=== PATIENT | female | born 1950 | race Caucasian/White ===

== ENCOUNTER 2016-06-28 15:08 | Emergency (ER) | payer OTHER ==
[2016-06-28 15:20] VITALS: BMI 34.3
--- NOTE | 2016-06-28 15:27 | PDOC ---
History of Present Illness - General History Source: Patient Exam Limitations: No Limitations - History of Present Illness Initial Comments: 06/28/16 16:15 The patient is 66-year-old female, with a significant past medical history of arrhythmia, HTN, hyperthyroidism (on Synthroid), and arthritis, who presents to the ED with fever, cough, sore throat, body aches, headache, nausea, diarrhea, and abdominal pain that began a few days ago. The patient visited her PCP two days ago and was prescribed a nasal spray. Last dose of tylenol was at 1:30PM. Pt is also taking mucinex that has helped to alleviate her symptoms. The patient denies any chest pain or shortness of breath. The patient denies any recent sick contacts. PCP: Dr. Flowers <Genesis Carbajal - Last Filed: 06/28/16 16:15> <Yolanda Goddard - Last Filed: 06/28/16 18:56> - General Chief Complaint: Vomiting/Diarrhea Stated Complaint: DIZZINESS, FLU, HEADACHES, Time Seen by Provider: 06/28/16 15:27 Past History <Genesis Carbajal - Last Filed: 06/28/16 16:15> - Past Medical History Cardiac Disorders: Yes (arrhythmia) HTN: Yes Thyroid Disease: Yes Other medical history: arthritis - Psycho/Social/Smoking Cessation Hx Suicidal Ideation: No Smoking History: Former smoker Have you smoked in the past 12 months: No Information on smoking cessation initiated: No <Yolanda Goddard - Last Filed: 06/28/16 18:56> - Past Medical History Allergies/Adverse Reactions: Allergies Allergy/AdvReac Type Severity Reaction Status Date / Time No Known Allergies Allergy Verified 06/28/16 15:14 Review of Systems - Review of Systems Able to Perform ROS?: Yes Comments:: 06/28/16 16:16 GENERAL/CONSTITUTIONAL: No chills. No weakness. (+)fever, body aches HEAD, EYES, EARS, NOSE AND THROAT: No change in vision. No ear pain or discharge. (+)sore throat CARDIOVASCULAR: No chest pain or shortness of breath. RESPIRATORY: No wheezing, or hemoptysis. (+)cough GASTROINTESTINAL: No vomiting, or constipation. (+)nausea, diarrhea, abdominal pain GENITOURINARY: No dysuria, frequency, or change in urination. MUSCULOSKELETAL: No joint swelling or pain. No neck or back pain. SKIN: No rash NEUROLOGIC: No vertigo, loss of consciousness, or change in strength/sensation. (+)headache ENDOCRINE: No increased thirst. No abnormal weight change. HEMATOLOGIC/LYMPHATIC: No anemia, easy bleeding, or history of blood clots. ALLERGIC/IMMUNOLOGIC: No hives or skin allergy. <Genesis Carbajal - Last Filed: 06/28/16 16:15> *Physical Exam - Vital Signs Last Vital Signs Temp Pulse Resp BP Pulse Ox 98.5 F 86 19 153/102 97 06/28/16 15:14 06/28/16 15:14 06/28/16 15:14 06/28/16 15:14 06/28/16 15:14 - Physical Exam Comments: 06/28/16 16:19 GENERAL: Awake, alert, and fully oriented, in no acute distress. (+) Intermittent dry cough. HEAD: No signs of trauma EYES: PERRLA, EOMI, sclera anicteric, conjunctiva clear ENT: Auricles normal inspection, hearing grossly normal, nares patent, oropharynx clear without exudates. Moist mucosa NECK: Normal ROM, supple, no lymphadenopathy, JVD, or masses LUNGS: Breath sounds equal, clear to auscultation bilaterally. No wheezes, and no crackles HEART: Regular rate and rhythm, normal S1 and S2, no murmurs, rubs or gallops ABDOMEN: Soft, nontender, normoactive bowel sounds. No guarding, no rebound. No masses EXTREMITIES: Normal range of motion, no edema. No clubbing or cyanosis. No cords, erythema, or tenderness NEUROLOGICAL: Cranial nerves II through XII grossly intact. Normal speech, normal gait SKIN: Warm, Dry, normal turgor, no rashes or lesions noted <Genesis Carbajal - Last Filed: 06/28/16 16:15> - Vital Signs Last Vital Signs Temp Pulse Resp BP Pulse Ox 98.5 F 86 19 153/102 97 06/28/16 15:14 06/28/16 15:14 06/28/16 15:14 06/28/16 15:14 06/28/16 15:14 <Yolanda Goddard - Last Filed: 06/28/16 18:56> ED Treatment Course - LABORATORY CBC & Chemistry Diagram: 06/28/16 16:55 06/28/16 16:55 <Yolanda Goddard - Last Filed: 06/28/16 18:56> *DC/Admit/Observation/Transfer - Attestations Scribe Attestion: 06/28/16 16:20 Documentation prepared by Genesis Carbajal, acting as rn medical surgical for Yolanda Goddard MD. <Genesis Carbajal - Last Filed: 06/28/16 16:15> - Discharge Dispostion Admit: No <Yolanda Goddard - Last Filed: 06/28/16 18:56> Diagnosis at time of Disposition: Fever Qualifiers: Fever type: unspecified Qualified Code(s): R50.9 - Fever, unspecified - Discharge Dispostion Disposition: HOME Condition at time of disposition: Improved - Referrals Referrals: Jj Flowers MD [Primary Care Provider] -
[2016-06-28] MEDS ORDERED: KETOROLAC TROMETHAMINE 15 MG/ML VIAL IVPUSH ONE (16:07)
[2016-06-28] MEDS ORDERED: SODIUM CHLORIDE 1,000 ML IV STA (16:07)
[2016-06-28] MEDS ORDERED: KETOROLAC TROMETHAMINE 60 MG/2 ML VIAL ONE (16:35)
[2016-06-28 17:06] LABS: BASOPHIL 0.9 % (0-2.0); EOSINOPHIL 3.1 % (0-4.5); MCH 28.7 pg (25.7-33.7); MCHC 32.8 g/dl (32.0-36.0); MEAN CELL VOLUME 87.5 fl (80-96); MEAN PLT VOLUME 7.9 fl (7.5-11.1); NEUTROPHILS 61.3 % (42.8-82.8); PLATELET COUNT 244 K/MM3 (134-434); RDW 13.4 % (11.6-15.6); WHITE BLOOD COUNT 10.2 K/mm3 (4.0-10.0)
[2016-06-28 17:59] LABS: ALBUMIN 3.6 g/dl (3.4-5.0); BILIRUBIN,TOTAL 0.5 mg/dL (0.2-1.0); CALCIUM 8.3 mg/dL (8.5-10.1); CREATININE 1.1 mg/dL (0.55-1.02); TOT PROT 7.7 g/dl (6.4-8.2)
[2016-06-28 18:29] VITALS: BP 139/88; PULSE 71; TEMP 98.2
== END 2016-06-28 19:56 | disposition home or self-care (01) ==
LOC: JER 15:08
PROC: 3E0333Z Introduction of Anti-inflammatory into Peripheral Vein, Percutaneous Approach (ICD-10-PCS; principal; 2016-06-28)
DX: R50.9 Fever, unspecified (principal); I10 Essential (primary) hypertension; E03.9 Hypothyroidism, unspecified; Z86.79 Personal history of other diseases of the circulatory system
CPT/HCPCS: 36415; 71010-TC; 80053; 85025; 87804; 96374; 99282-25

== ENCOUNTER 2017-10-22 17:20 | Emergency (ER) | payer OTHER ==
--- NOTE | 2017-10-22 17:28 | PDOC ---
Rapid Medical Evaluation Time Seen by Provider: 10/22/17 17:26 Medical Evaluation: Allergies Allergy/AdvReac Type Severity Reaction Status Date / Time No Known Allergies Allergy Verified 06/28/16 15:14 10/22/17 17:26 I have performed a brief in-person evaluation of this patient. the patient presents with a chief complaint of swelling and redness to right 2nd toe since last Patient reports started with itching now with some pain. Pertinent physical exam findings: appears well erythenatous 2nd right toe, +swelling I have ordered the following: xray of right foot The patient will proceed to the
[2017-10-22 17:31] VITALS: BP 122/71; PULSE 77; TEMP 97.8; BMI 33.5
--- NOTE | 2017-10-22 18:50 | PDOC ---
History of Present Illness - General Chief Complaint: Edema Stated Complaint: PAIN Time Seen by Provider: 10/22/17 17:26 History Source: Patient Exam Limitations: No Limitations - History of Present Illness Initial Comments: 10/22/17 18:50 Patient is a 67-year-old female who presents emergency department today complaining of right second toe swelling. Patient states this started approximately 1 week ago. She states it feels like it itching. She states that the swelling has gotten worse over the last few days. Denies fevers, chills, recent trauma, weakness in the foot, numbness and tingling. Past History - Travel Traveled outside of the country in the last 30 days: No Close contact w/someone who was outside of country & ill: No - Past Medical History Allergies/Adverse Reactions: Allergies Allergy/AdvReac Type Severity Reaction Status Date / Time No Known Allergies Allergy Verified 10/22/17 17:28 Home Medications: Ambulatory Orders Clindamycin [Cleocin -] 300 mg PO TID #21 capsule 10/22/17 Cardiac Disorders: Yes (arrhythmia, CAD,[place],) COPD: No HTN: Yes Thyroid Disease: Yes - Suicide/Smoking/Psychosocial Hx Smoking History: Former smoker Have you smoked in the past 12 months: No Information on smoking cessation initiated: No Review of Systems - Review of Systems Able to Perform ROS?: Yes Comments:: 10/22/17 18:51 CONSTITUTIONAL: Absent: fever, chills, diaphoresis, generalized weakness, malaise, loss of appetite MUSCULOSKELETAL: Present: R second toe pain/swelling Absent: myalgia, arthralgia, SKIN: Present: redness to R second toe Absent: rash, itching, pallor HEMATOLOGIC/IMMUNOLOGIC: Absent: easy bleeding, easy bruising, lymphadenopathy, frequent infections ENDOCRINE: Absent: unexplained weight gain, unexplained weight loss, heat intolerance, cold intolerance NEUROLOGIC: Absent: headache, focal weakness or paresthesias, dizziness, unsteady gait, seizure, mental status changes, bladder or bowel incontinence PSYCHIATRIC: Absent: anxiety, depression, suicidal or homicidal ideation, hallucinations. Is the patient limited Korean proficient: No *Physical Exam - Vital Signs Last Vital Signs Temp Pulse Resp BP Pulse Ox 97.8 F 77 19 122/71 96 10/22/17 17:28 10/22/17 17:28 10/22/17 17:28 10/22/17 17:28 10/22/17 17:28 - Physical Exam Comments: 10/22/17 18:52 GENERAL: Well developed, well nourished. Awake and alert. No acute distress. MUSCULOSKELETAL Normal range of motion at all joints. No bony deformities or tenderness. No CVA tenderness. EXTREMITIES: No cyanosis. No clubbing. No edema. No calf tenderness. SKIN: R second toe swollen and erythematous to the ventral side of the toe without circumferential redness. Warm and dry. Normal capillary refill. No jaundice. NEUROLOGICAL: Alert, awake, appropriate. Cranial nerves 2-12 intact. No deficits to light touch and temperature in face, upper extremities and lower extremities. No motor deficits in the in face, upper extremities and lower extremities. Normoreflexic in the upper and lower extremities. Normal speech. Toes are down- going bilaterally. Gait is normal without ataxia. PSYCHIATRIC: Cooperative. Good eye contact. Appropriate mood and affect. Medical Decision Making - Medical Decision Making 10/22/17 18:53 Patient is a 67-year-old female who presents with 1 week of right second toe swelling and redness. On exam the toe is warm to the touch and grossly swollen. Minimal pain on palpation. Most likely cellulitis at this time. Unlikely gout this patient can bend the toe. We'll treat with antibiotics. Return precautions given. Patient was is all discharge instructions and all questions were answered. *DC/Admit/Observation/Transfer Diagnosis at time of Disposition: Cellulitis Qualifiers: Site of cellulitis: extremity Site of cellulitis of extremity: toe Laterality: right Qualified Code(s): L03.031 - Cellulitis of right toe - Discharge Dispostion Disposition: HOME Condition at time of disposition: Stable Decision to Admit order: No - Prescriptions Prescriptions: Clindamycin [Cleocin -] 300 mg PO TID #21 capsule - Referrals Referrals: Jj Flowers MD [Primary Care Provider] - - Patient Instructions Printed Discharge Instructions: DI for Cellulitis -- Adult Additional Instructions: You have cellulitis. This is a skin infection. Please take the clindamycin three times a day for one week. Take all the medication even if you feel better. Take with food You may use warm water soaks to the area. Please do this approximately 4-5 times a day. Please avoid shaving the skin around the area of redness. You may take Tylenol or Motrin as needed for pain. Please follow up with your primary care doctor in 1 week. Return to the emergency department if you have worsening redness, fevers, increasing pain, or have any changes in your symptoms. Tienes celulitis Esta es nilson infeccin de la piel. Por favor, tome la clindamicina liv veces al da doris nilson semana. Kahite todos los medicamentos incluso si se siente mejor. Dimitri con la comida Puede usar baos de agua tibia en el michael. Por favor haz esto aproximadamente 4- 5 veces al da. Nat afeitarte la piel alrededor del michael de enrojecimiento. Puede dimitri Tylenol o Motrin segn sea necesario para el dolor. Por favor christophe un seguimiento con bull mdico de atencin primaria en 1 semana. Regrese al departamento de emergencias si empeora el enrojecimiento, la fiebre, aumenta el dolor o tiene algn cambio en ayaz sntomas. - Post Discharge Activity
== END 2017-10-22 19:02 | disposition home or self-care (01) ==
LOC: JERFT 17:20
DX: L03.031 Cellulitis of right toe (principal); I25.10 Atherosclerotic heart disease of native coronary artery without angina pectoris; I10 Essential (primary) hypertension; I49.8 Other specified cardiac arrhythmias; E07.9 Disorder of thyroid, unspecified
CPT/HCPCS: 73660-TC-FY; 99281-25

== ENCOUNTER 2018-08-25 04:44 | Emergency (ER) | payer OTHER ==
--- NOTE | 2018-08-25 04:59 | PDOC ---
ED Treatment Course - LABORATORY CBC & Chemistry Diagram: 08/25/18 05:30 08/25/18 05:30 Medical Decision Making - Medical Decision Making 08/25/18 04:59 Patient seen by the advanced practice provider under my direct supervision. Ancillary testing reviewed as necessary. I agree with plan as outlined by the advanced practice provider. *DC/Admit/Observation/Transfer Diagnosis at time of Disposition: Nausea vomiting and diarrhea - Discharge Dispostion Condition at time of disposition: Fair - Referrals Referrals: Jj Flowers MD [Primary Care Provider] - - Patient Instructions - Post Discharge Activity
--- NOTE | 2018-08-25 05:09 | PDOC ---
History of Present Illness - General Chief Complaint: Vomiting/Diarrhea Stated Complaint: vomiting diarrhea Time Seen by Provider: 08/25/18 04:57 History Source: Patient - History of Present Illness Initial Comments: 08/25/18 05:24 68-year-old female with nausea vomiting and diarrhea for the last 3-4 days. Patient reports body aches and feeling weak. Denies fevers/chills, cough, chest pain, diaphoresis, dizziness. Patient is here with mother who was also with similar symptoms and had a syncopal episode. Past History - Past Medical History Allergies/Adverse Reactions: Allergies Allergy/AdvReac Type Severity Reaction Status Date / Time No Known Allergies Allergy Verified 08/25/18 05:26 Home Medications: Ambulatory Orders Ondansetron HCl [Zofran] 4 mg PO Q8H #8 tablet 08/25/18 Cardiac Disorders: Yes (arrhythmia, CAD,[place],) COPD: No HTN: Yes Thyroid Disease: Yes - Suicide/Smoking/Psychosocial Hx Smoking History: Former smoker Have you smoked in the past 12 months: No Review of Systems - Review of Systems Able to Perform ROS?: Yes Is the patient limited Niuean proficient: No Constitutional: Yes: Weakness Respiratory: No: Symptoms reported, See HPI, Cough, Orthopnea, Shortness of Breath, SOB with Exertion, SOB at Rest, Stridor, Wheezing, Productive cough, Hemoptysis, Other ABD/GI: Yes: Diarrhea, Nausea, Vomiting, Abdominal cramping : No: Symptoms Reported, See HPI, Burning, Dysuria, Discharge, Frequency, Flank Pain, Hematuria, Incontinence, Pain, Urgency, Testicular Mass, Testicular Swelling, Lesions, Testicular Pain, Other Musculoskeletal: No: Symptoms Reported, See HPI, Back Pain, Gout, Joint Pain, Joint Swelling, Muscle Pain, Muscle Weakness, Neck Pain, Joint Stiffness, Other Integumentary: No: Symptoms Reported, See HPI, Bruising, Change in Color, Change in Hair/Nails, Dryness, Erythema, Flushing, Lesions, Lumps, Pallor, Pruritus, Rash, Sweating, Other Neurological: No: Symptoms reported, See HPI, Headache, Numbness, Paresthesia, Pre-Existing Deficit, Seizure, Tingling, Tremors, Weakness, Unsteady Gait, Ataxia, Dizziness, Other *Physical Exam - Vital Signs 08/25/18 05:25 A: likely viral syndrome since multiple members of family with similar symptoms P: labs EKG IVF zofran Heart Score/ECG Review - ECG Intrepretation Rhythm: Regular Rhythm Comment:: 08/25/18 06:12 NSR: 69bpm ED Treatment Course - LABORATORY CBC & Chemistry Diagram: 08/25/18 05:30 08/25/18 05:30 Medical Decision Making - Medical Decision Making 08/25/18 06:45 tolerated PO. awaiting UA: no urinary symptoms. patient signed out to Rachel CARTY *DC/Admit/Observation/Transfer Diagnosis at time of Disposition: Nausea vomiting and diarrhea - Discharge Dispostion Disposition: HOME Condition at time of disposition: Improved - Prescriptions Prescriptions: Ondansetron HCl [Zofran] 4 mg PO Q8H #8 tablet - Referrals Referrals: Jj Flowers MD [Primary Care Provider] - - Patient Instructions Printed Discharge Instructions: DI for Viral Gastroenteritis -- Adult Additional Instructions: The most common cause of nausea, vomiting and diarrhea is usually viral and self -limited. Treatment is largely supportive and includes drinking plenty of fluids to prevent dehydration. You should also eat as much as you can tolerate. Take Zofran as needed for nausea. If symptoms worsen, return to the ED, otherwise follow-up with your PMD Print Language: [place] - Post Discharge Activity
[2018-08-25] MEDS ORDERED: SODIUM CHLORIDE 500 ML IV STA (05:22)
[2018-08-25] MEDS ORDERED: ONDANSETRON 4 MG/2 ML VIAL IVPUSH ONE (05:22)
[2018-08-25 05:26] VITALS: BMI 32.5
[2018-08-25] MEDS ORDERED: ONDANSETRON 4 MG/2 ML VIAL ONE (05:27)
[2018-08-25 05:40] LABS: BASO % 1.1 % (0-2.0); EOS % 3.6 % (0-4.5); HEMATOCRIT 39.7 % (32.4-45.2); HEMOGLOBIN 13.4 GM/dL (10.7-15.3); LYMPH % 21.3 % (8-40); MCH 30.2 pg (25.7-33.7); MCHC 33.7 g/dl (32.0-36.0); MEAN CELL VOLUME 89.6 fl (80-96); MEAN PLT VOLUME 7.6 fl (7.5-11.1); PLATELET COUNT 205 K/MM3 (134-434); RBC 4.43 M/mm3 (3.60-5.2); RDW 13.9 % (11.6-15.6)
[2018-08-25 06:03] LABS: ALBUMIN 3.6 g/dl (3.4-5.0); ALK PHOS 130 U/L (45-117); ANION GAP 9 MMOL/L (8-16); BILIRUBIN,TOTAL 0.3 mg/dL (0.2-1); BLOOD UREA NITROGEN 14 mg/dL (7-18); CALCIUM 8.7 mg/dL (8.5-10.1); CHLORIDE 102 mmol/L (98-107); CO2 26 mmol/L (21-32); CREATININE 1.2 mg/dL (0.55-1.3); GLUCOSE,RANDOM 109 mg/dL (74-106); LIPASE 206 U/L (73-393); POTASSIUM 3.8 mmol/L (3.5-5.1); SGOT/AST 23 U/L (15-37); SGPT/ALT 24 U/L (13-61); SODIUM 137 mmol/L (136-145); TOT PROT 7.5 g/dl (6.4-8.2)
[2018-08-25 07:04] LABS: PH,URINE 7.5 (5.0-8.0); URINE APPEARANCE CLEAR; URINE BILIRUBIN NEGATIVE (NEGATIVE); URINE COLOR YELLOW; URINE GLUCOSE (UA) NEGATIVE (NEGATIVE); URINE KETONE NEGATIVE (NEGATIVE); URINE LEUK ESTERASE 2+ (NEGATIVE); URINE NITRITE NEGATIVE (NEGATIVE); URINE PROTEIN NEGATIVE (NEGATIVE); URINE UROBILINOGEN 0.2 mg/dL (0.2-1.0)
[2018-08-25 07:16] LABS: EPI CELLS 3.7 /HPF (0-5); HYALINE CASTS 0 /hpf (0-8); URINE BACTERIA 110.6 /hpf (NEGATIVE); URINE RBC 2 /hpf (0-4); URINE WBC 5 /hpf (0-5)
[2018-08-25 07:19] LABS: URINE CRYSTALS 0 /hpf
--- NOTE | 2018-08-25 07:30 | PDOC ---
*Physical Exam - Vital Signs Last Vital Signs Temp Pulse Resp BP Pulse Ox 98 F 78 19 158/99 97 08/25/18 04:44 08/25/18 04:44 08/25/18 04:44 08/25/18 04:44 08/25/18 04:44 - Physical Exam General Appearance: Yes: Appropriately Dressed. No: Apparent Distress HEENT: positive: Normal Voice Neck: positive: Supple Respiratory/Chest: negative: Respiratory Distress Gastrointestinal/Abdominal: positive: Normal Bowel Sounds, Soft. negative: Tender, Distended, Guarding, Rebound Integumentary: positive: Dry, Warm Neurologic: positive: Fully Oriented, Alert, Normal Mood/Affect ED Treatment Course - LABORATORY CBC & Chemistry Diagram: 08/25/18 05:30 08/25/18 05:30 - ADDITIONAL ORDERS Additional order review: Laboratory Results 08/25/18 08/25/18 06:18 05:30 Sodium 137 Potassium 3.8 Chloride 102 Carbon Dioxide 26 Anion Gap 9 BUN 14 Creatinine 1.2 Creat Clearance w eGFR 44.41 Random Glucose 109 H Calcium 8.7 Total Bilirubin 0.3 AST 23 ALT 24 Alkaline Phosphatase 130 H Total Protein 7.5 Albumin 3.6 Lipase 206 Urine Color Yellow Urine Appearance Clear Urine pH 7.5 Ur Specific [place] 1.007 L Urine Protein Negative Urine Glucose (UA) Negative Urine Ketones Negative Urine Blood Negative Urine Nitrite Negative Urine Bilirubin Negative Urine Urobilinogen 0.2 Ur Leukocyte Esterase 2+ H Urine WBC (Auto) 5 Urine RBC (Auto) 2 Urine Casts (Auto) 0 U Epithel Cells (Auto) 3.7 Urine Crystals (Auto) 0 Urine Bacteria (Auto) 110.6 08/25/18 05:30 RBC 4.43 MCV 89.6 MCHC 33.7 RDW 13.9 MPV 7.6 Neutrophils % 68.0 Lymphocytes % 21.3 Monocytes % 6.0 Eosinophils % 3.6 Basophils % 1.1 - Medications Given in the ED: ED Medications Discontinued Medications Generic Name Dose Route Start Last Admin Trade Name Freq PRN Reason Stop Dose Admin Sodium Chloride 500 mls @ 500 mls/hr 08/25/18 05:22 08/25/18 05:34 Normal Saline - IV 08/25/18 06:21 500 mls/hr ASDIR STA Administration Ondansetron HCl 4 mg 08/25/18 05:22 08/25/18 05:34 Zofran Injection IVPUSH 08/25/18 05:23 4 mg ONCE ONE Administration Medical Decision Making - Medical Decision Making 08/25/18 07:28 Patient signed out to me at 7 AM Patient is a 68-year-old female with a history of arrhythmia, hypertension, hyperthyroid, and arthritis, who presents with nausea, vomiting and diarrhea since last night. No significant abdominal pain and no fever or chills. Multiple family members with similar symptoms including pt's mother who is also pt in ED currently. No recent travel, unusual food or antibiotic use. Per prior team, CBC and chemistry unremarkable, UA pending. Of note, patient reports no dysuria. Discharge anticipated 08/25/18 07:29 On reassessment now, patient appears well and in no apparent distress with benign abdomen on rpt exam. Per son, was able to drink a glass of water here. Repeat vitals pending. Of note, UA with 2+ leuks and 5 WBC. Given that patient reports no history of dysuria, will hold off on antibiotic at this time and send urine culture. Will dc w/ supportive tx and strict return precautions as d/ w pt and family *DC/Admit/Observation/Transfer Diagnosis at time of Disposition: Nausea vomiting and diarrhea - Discharge Dispostion Disposition: HOME Condition at time of disposition: Improved - Prescriptions Prescriptions: Ondansetron HCl [Zofran] 4 mg PO Q8H #8 tablet - Referrals Referrals: Jj Flowers MD [Primary Care Provider] - - Patient Instructions Printed Discharge Instructions: DI for Viral Gastroenteritis -- Adult Additional Instructions: The most common cause of nausea, vomiting and diarrhea is usually viral and self -limited. Treatment is largely supportive and includes drinking plenty of fluids to prevent dehydration. You should also eat as much as you can tolerate. Take Zofran as needed for nausea. If symptoms worsen, return to the ED, otherwise follow-up with your PMD - Post Discharge Activity
[2018-08-25 07:32] VITALS: BP 131/91; PULSE 71
[2018-08-25 07:58] VITALS: TEMP 98.2
--- NOTE | 2018-08-25 09:35 | EKG ---
Test Reason : Blood Pressure : / mmHG Vent. Rate : 069 BPM Atrial Rate : 069 BPM P-R Int : 158 ms QRS Dur : 080 ms QT Int : 392 ms P-R-T Axes : 067 056 058 degrees QTc Int : 420 ms NORMAL SINUS RHYTHM NORMAL ECG WHEN COMPARED WITH ECG OF 25-APR-2011 18:45, NO SIGNIFICANT CHANGE WAS FOUND Confirmed by NARESH CHANG MD ([id number]) on 08/25/2018 9:35:36 AM Referred By: Confirmed By:NARESH CHANG MD
== END 2018-08-25 08:10 | disposition home or self-care (01) ==
LOC: JER 04:44
PROC: 3E033GC Introduction of Other Therapeutic Substance into Peripheral Vein, Percutaneous Approach (ICD-10-PCS; principal; 2018-08-25)
PROC: 3E0337Z Introduction of Electrolytic and Water Balance Substance into Peripheral Vein, Percutaneous Approach (ICD-10-PCS; 2018-08-25)
DX: R11.2 Nausea with vomiting, unspecified (principal); R19.7 Diarrhea, unspecified; Z87.891 Personal history of nicotine dependence; I10 Essential (primary) hypertension; E07.9 Disorder of thyroid, unspecified; I25.2 Old myocardial infarction; I25.10 Atherosclerotic heart disease of native coronary artery without angina pectoris; I49.9 Cardiac arrhythmia, unspecified
CPT/HCPCS: 36415; 80053; 81003; 83690; 85025; 87086; 93005; 93010; 96361; 96374; 99282-25

== ENCOUNTER 2018-10-16 05:08 | Observation (INO) | payer OTHER ==
--- NOTE | 2018-10-16 05:11 | PDOC ---
History of Present Illness - General Stated Complaint: POSSIBLE CVA History Source: Patient Exam Limitations: No Limitations - History of Present Illness Initial Comments: 10/16/18 05:43 68 year old woman with a history of arrythmias, HTN, hypothyroidism (on synthyroid), panic attacks, ?prior stroke? and arthritis who presents to the ED after awaking in the night, becoming diaphoretic, nauseous and feeling short of breath. The patient's family tried to calm her down, but noted that the L side of her face became "frozen" and she complained of some L arm tingling. The patient states her symptoms feel like her panic attacks but much worse and notes that she has not had a panic attack in over a year. She admits to some chest tightness but denies chest pain, she has some shortness of breath. Denies vomtiing, recent fever, travel, diarrhea, constipation, dysuria. daughter reports prior stroke unclear if tia, patient has no residual deficit 10/16/18 05:55 tPA Exclusion Checklist 0-3hr - Time Elapsed Date last known well: 10/16/18 Time last known well: 04:00 Elaspsed time: Day(s) and 3 Hour(s) and 40 Minutes - Thrombolytic Therapy Candidate Is the patient eligible for Thrombolytic Therapy?: Yes - Exclusion Criteria 0-3hr SBP greater than 185 or DBP greater than 110mmHg despite tx: No Recent IC/spinal surgery,head trauma or stroke w/in last 3mo: No Hx of previous IC hemorrhage, IC neoplasm, AVM or aneurysm: No Active internal bleeding: No Blding diathesis(low plt ct, inc PTT,INR>1.7 or use of NOAC): No Symptoms suggest subarachnoid hemorrhage: No CT demonstrates multilobar infarct(>1/3 cerebral hemiphere): No Arterial puncture at noncompressible site in previous 7 days: No Blood glucose concentration less than 50mg/dL (2.7mmol/L): No - Relative Exclusion Criteria 0-3h Life expectancy <1yr/severe co-morbid illness/[employer] on admit: No : No Patient/family refused: No Rapid improvement: No Stroke severity too mild: Yes Recent acute ID (w/in previous 3 months): No Seizure at onset with postictal residual neuro impairments: No Major surgery or serious trauma w/in previous 14 days: No Recent GI or hemorrhage (w/in previous 21 days): No - Ineligibility reason(s) Reasons No tPA given: See reason(s) noted above NIH Stroke Scale - Last Known Well Date/Time & Onset Date Last Known Well: 10/16/18 Time Last Known Well: 04:00 - Initial Evaluation Level of consciousness: Alert Ask patient the month and their age: Answers both correctly Ask patient to open & close eyes; make fist and let go: Obeys both correctly Best gaze (horizontal eye movement): Normal Visual field testing: No visual field loss Facial paresis (Show teeth/raise eyebrows/close eyes tight): Normal symmetrical movement Motor Function: Left Arm: Normal Motor Function: Right Arm: Normal (extends arm 90 (or 45) degrees for 10 seconds without drift Motor Function: Left Leg: Normal (extends leg 30 degrees for 5 seconds without drift) Motor Function: Right Leg: Normal (extends leg 30 degrees for 5 seconds without drift) Limb Ataxia: No ataxia Sensory(Use pinprick test arms,legs,trunk,face/side to side): Normal Best language (Describe picture, name items, read sentences): No Aphasia Dysarthria (read several words): Normal articulation Extinction and Inattention: No abnormality - Total Score NIH Stroke Scale Score: 0 Past History - Past Medical History Allergies/Adverse Reactions: Allergies Allergy/AdvReac Type Severity Reaction Status Date / Time No Known Allergies Allergy Verified 10/16/18 06:06 Home Medications: Ambulatory Orders Atorvastatin Ca [Lipitor] 20 mg PO DAILY 10/16/18 Hydrochlorothiazide 25 mg PO DAILY 10/16/18 Levothyroxine [Synthroid -] 75 mcg PO DAILY 10/16/18 Omeprazole 40 mg PO DAILY 10/16/18 Cardiac Disorders: Yes (arrhythmia, CAD,ID,) COPD: No HTN: Yes Thyroid Disease: Yes - Suicide/Smoking/Psychosocial Hx Smoking History: Former smoker Have you smoked in the past 12 months: No Hx Alcohol Use: No Drug/Substance Use Hx: No Review of Systems - Review of Systems Able to Perform ROS?: Yes Comments:: 10/16/18 06:09 GENERAL/CONSTITUTIONAL: No fever or chills. No weakness. HEAD, EYES, EARS, NOSE AND THROAT: No change in vision. No ear pain or discharge. No sore throat. CARDIOVASCULAR: + chest tightness + shortness of breath RESPIRATORY: No cough, wheezing, or hemoptysis. GASTROINTESTINAL: + nausea, No vomiting, diarrhea or constipation. GENITOURINARY: No dysuria, frequency, or change in urination. MUSCULOSKELETAL: No joint or muscle swelling or pain. No neck or back pain. SKIN: No rash NEUROLOGIC: No headache, vertigo, loss of consciousness, or change in strength/ sensation. ENDOCRINE: No increased thirst. No abnormal weight change HEMATOLOGIC/LYMPHATIC: No anemia, easy bleeding, or history of blood clots. ALLERGIC/IMMUNOLOGIC: No hives or skin allergy. *Physical Exam - Physical Exam Comments: 10/16/18 06:09 GENERAL: Awake, alert, and fully oriented, uncomfortable and diaphoretic,some facial asymmetry with some slight decrease nasolabial fold on L side HEAD: No signs of trauma, normocephalic, atraumatic EYES: EOMI, sclera anicteric, conjunctiva clear ENT: oropharynx clear without exudates. Moist mucosa NECK: Normal ROM, supple LUNGS: No distress, speaks full sentences, clear to auscultation bilaterally HEART: Regular rate and rhythm, normal S1 and S2, no murmurs, rubs or gallops, peripheral pulses normal and equal bilaterally. ABDOMEN: Soft, nontender, normoactive bowel sounds. No guarding, no rebound. No masses EXTREMITIES : Normal inspection, Normal range of motion, no edema. No clubbing or cyanosis. NEUROLOGICAL: Cranial nerves II through XII grossly intact. Normal speech, no focal sensorimotor deficits SKIN: Warm, Dry, normal turgor, no rashes or lesions noted ED Treatment Course - LABORATORY CBC & Chemistry Diagram: 10/16/18 06:00 10/16/18 06:00 Medical Decision Making - Medical Decision Making 10/16/18 05:55 68 year old woman with a history of arrythmias, HTN, hypothyroidism (on synthyroid), panic attacks, ?prior stroke? and arthritis who presents to the ED after awaking in the night, becoming diaphoretic, nauseous and feeling short of breath. The patient's family tried to calm her down, but noted that the L side of her face became "frozen" and she complained of some L arm tingling. The patient states her symptoms feel like her panic attacks but much worse and notes that she has not had a panic attack in over a year. She admits to some chest tightness but denies chest pain, she has some shortness of breath. Denies vomtiing, recent fever, travel, diarrhea, constipation, dysuria. ED Course: consider ACS vs arrythmia vs thyroid derangmeent vs stroke vs panic attack cbc, cmp, tsh, coags, ivf 10/16/18 06:13 EKG: normal sinus rhythm HR 68, no interval abnormalities, narrow QRS, ST and T wave segments and morphology normal. 10/16/18 07:40 Patient endorsed to resident Dr. Rodriguez *DC/Admit/Observation/Transfer Diagnosis at time of Disposition: Hypothyroid, Panic attack - Referrals Referrals: Jj Flowers MD [Primary Care Provider] - - Patient Instructions - Post Discharge Activity
--- NOTE | 2018-10-16 05:24 | PDOC ---
Attending Attestation - Resident Resident Name: Thais Caldwell - ED Attending Attestation I have performed the following: I have examined & evaluated the patient, The case was reviewed & discussed with the resident, I agree w/resident's findings & plan - HPI HPI: 10/16/18 07:18 Pt comes with facial droop, as per family. She woke up in the middle of the night feeling unwell and nauseous and she had a panic attack afterward. Family brought her to the ER because she has a hx of strokes in the past. 10/16/18 07:21 Patient Name: BARRERA PARKER THIS IS A PRELIMINARY REPORT FROM [facility] DATE OF SERVICE: 2018-10-16 05:10:51 IMAGES: 148 Exam: CT head without IV contrast. Clinical indication:Rule out stroke. No further information is provided. Comparison:None available. Technique: Axial unenhanced CT images from the skull base through the brain were obtained followed by coronal and sagital reformats. Findings: The visualized bony structures are unremarkable. There are some soft tissue changes within the right maxillary sinus suggesting acute sinusitis. Otherwise, the visualized paranasal sinuses and mastoid air cells are clear. There is no evidence of intra-or extra-axial hemorrhage. The ventricles and basilar cisterns are unremarkable. There is no evidence of intracranial mass, acute infarct, or midline shift. Impression: Negative unenhanced CT of the brain. - Physicial Exam PE: 10/16/18 07:19 Agree with resident exam.
[2018-10-16 06:11] LABS: EPI CELLS 9.3 /HPF (0-5/HPF); URINE APPEARANCE CLEAR; URINE BACTERIA 284.9 /hpf (NEGATIVE); URINE BILIRUBIN NEGATIVE (NEGATIVE); URINE CASTS 3 /lpf (0-8); URINE COLOR YELLOW; URINE GLUCOSE (UA) NEGATIVE (NEGATIVE); URINE KETONE NEGATIVE (NEGATIVE); URINE LEUK ESTERASE 2+ (NEGATIVE); URINE NITRITE NEGATIVE (NEGATIVE); URINE PROTEIN 1+ (NEGATIVE); URINE RBC 4 /hpf (0-4); URINE UROBILINOGEN 0.2 mg/dL (0.2-1.0); URINE WBC 9 /hpf (0-5)
[2018-10-16 06:13] LABS: BASO % 1.3 % (0-2.0); EOS % 1.8 % (0-4.5); HEMATOCRIT 37.7 % (32.4-45.2); HEMOGLOBIN 12.7 GM/dL (10.7-15.3); LYMPH % 17.1 % (8-40); MCH 30.1 pg (25.7-33.7); MCHC 33.6 g/dl (32.0-36.0); MEAN CELL VOLUME 89.6 fl (80-96); MEAN PLT VOLUME 7.5 fl (7.5-11.1); MONO % 5.6 % (3.8-10.2); NEUT % 74.2 % (42.8-82.8); PLATELET COUNT 260 K/MM3 (134-434); RDW 13.9 % (11.6-15.6); WHITE BLOOD COUNT 8.2 K/mm3 (4.0-10.0)
[2018-10-16 06:29] LABS: INR 2.11 (0.83-1.09); PROTHROMBIN TIME (PATIENT) 25.1 SEC (9.7-13.0)
[2018-10-16] MEDS: SODIUM CHLORIDE 1,000 ML IV SCH (06:30)
[2018-10-16 06:31] LABS: ACTIVATED PTT 54.2 SECONDS (25.2-36.5)
[2018-10-16 06:55] LABS: ALBUMIN 3.8 g/dl (3.4-5.0); BILIRUBIN,TOTAL 0.4 mg/dL (0.2-1); CALCIUM 8.9 mg/dL (8.5-10.1); CREATININE 1.3 mg/dL (0.55-1.3); POTASSIUM 3.4 mmol/L (3.5-5.1); TOT PROT 7.5 g/dl (6.4-8.2)
--- NOTE | 2018-10-16 07:51 | PDOC ---
*Physical Exam - Vital Signs Last Vital Signs Temp Pulse Resp BP Pulse Ox 97.4 F L 70 22 H 162/97 100 10/16/18 05:17 10/16/18 05:17 10/16/18 05:17 10/16/18 05:17 10/16/18 05:17 - Physical Exam Comments: 10/16/18 07:50 Received sign out from Dr. Caldwell ED Treatment Course - LABORATORY CBC & Chemistry Diagram: 10/16/18 06:00 10/16/18 06:00 - ADDITIONAL ORDERS Additional order review: Laboratory Results 10/16/18 10/16/18 10/16/18 06:00 06:00 06:00 PT with INR 25.10 H INR 2.11 H PTT (Actin FS) 54.2 H Sodium 133 L Potassium 3.4 L Chloride 98 Carbon Dioxide 25 Anion Gap 10 BUN 19 H Creatinine 1.3 Est GFR (CKD-EPI)AfAm 48.13 Est GFR (CKD-EPI)NonAf 41.53 POC Glucometer Random Glucose 112 H Calcium 8.9 Total Bilirubin 0.4 AST 20 ALT 22 Alkaline Phosphatase 103 Troponin I 0.02 Total Protein 7.5 Albumin 3.8 TSH 6.14 H 10/16/18 05:32 PT with INR INR PTT (Actin FS) Sodium Potassium Chloride Carbon Dioxide Anion Gap BUN Creatinine Est GFR (CKD-EPI)AfAm Est GFR (CKD-EPI)NonAf POC Glucometer 105 Random Glucose Calcium Total Bilirubin AST ALT Alkaline Phosphatase Troponin I Total Protein Albumin TSH 10/16/18 10/16/18 06:00 05:32 RBC 4.20 MCV 89.6 MCHC 33.6 RDW 13.9 MPV 7.5 Neutrophils % 74.2 Lymphocytes % 17.1 Monocytes % 5.6 Eosinophils % 1.8 Basophils % 1.3 POC Glucometer 105 *DC/Admit/Observation/Transfer Diagnosis at time of Disposition: Hypothyroid, Panic attack, TIA (transient ischemic attack) - Referrals Referrals: Jj Flowers MD [Primary Care Provider] - - Patient Instructions - Post Discharge Activity
--- NOTE | 2018-10-16 10:55 | EKG ---
Test Reason : Blood Pressure : / mmHG Vent. Rate : 068 BPM Atrial Rate : 068 BPM P-R Int : 142 ms QRS Dur : 086 ms QT Int : 406 ms P-R-T Axes : 026 003 013 degrees QTc Int : 431 ms NORMAL SINUS RHYTHM NORMAL ECG WHEN COMPARED WITH ECG OF 25-AUG-2018 05:48, T WAVE INVERSION NOW EVIDENT IN INFERIOR LEADS Confirmed by OSCAR SANCHEZ MD ([id number]) on 10/16/2018 10:55:34 AM Referred By: Confirmed By:OSCAR SANCHEZ MD
--- NOTE | 2018-10-16 11:25 | HP ---
CHIEF COMPLAINT: Left facial tightness, left arm tingling, anxiety PCP: Lionel HISTORY OF PRESENT ILLNESS: 68 yo Female with PMH HTN, Hypothyroidism, Panic Attacks, Prior MO, Arthritis, Unspecified irregular heart rhythm (paroxysmal a-fib??) admitted to the hospital following an episode of waking up with SOB, anxiety, nausea, diaphoresis, chest tightness, face tightness, and left arm paresthesias. She states she was awoken by an argument outside where she lives. She states she awoke and became anxious and ran outside. She returned inside where her family tried to calm her however she was breathing rapidly, feeling nauseas and unable to calm down. The family endorses praying with her and attempting to help her control her breathing. During this time she began to feel left sided face tightness and left arm tingling. The family then called 911 out of fear that she was having a heart attack or stroke. She states that her symptoms have completely resolved at this time with the exception of some of the face tightness on the left. She also endorses that she is very diaphoretic at baseline and this is not something that is new to her today. She denies any weakness, paresthesia, blurred vision, slurred speech, nausea, vomiting, diarrhea. ER course was notable for: (1) Head CT negative for bleed or acute signs of ischemia (2) CXR noted without clear signs of infiltrate (3) EKG normal sinus without signs of block or arrhythmia Recent Travel: denies PAST MEDICAL HISTORY: As above PAST SURGICAL HISTORY: Social History: Smoking: Former Alcohol: none Drugs: none Family History: Allergies No Known Allergies Allergy (Verified 10/16/18 06:06) HOME MEDICATIONS: Home Medications Medication Instructions Recorded Atorvastatin Ca [Lipitor] 20 mg PO DAILY 10/16/18 Hydrochlorothiazide 25 mg PO DAILY 10/16/18 Levothyroxine [Synthroid -] 75 mcg PO DAILY 10/16/18 Metoprolol Succinate [Toprol Xl] 75 mg PO BID 10/16/18 Omeprazole 40 mg PO DAILY 10/16/18 Rivaroxaban [Xarelto -] 20 mg PO DAILY 10/16/18 REVIEW OF SYSTEMS CONSTITUTIONAL: chills, diaphoresis, Absent: fever, generalized weakness, malaise, loss of appetite, weight change HEENT: Absent: rhinorrhea, nasal congestion, throat pain, throat swelling, difficulty swallowing, mouth swelling, ear pain, eye pain, visual changes CARDIOVASCULAR: Absent: chest pain, syncope, palpitations, irregular heart rate, lightheadedness , peripheral edema RESPIRATORY: Absent: cough, shortness of breath, dyspnea with exertion, orthopnea, wheezing, stridor, hemoptysis GASTROINTESTINAL: Absent: abdominal pain, abdominal distension, nausea, vomiting, diarrhea, constipation, melena, hematochezia GENITOURINARY: Absent: dysuria, frequency, urgency, hesitancy, hematuria, flank pain, genital pain MUSCULOSKELETAL: Absent: myalgia, arthralgia, joint swelling, back pain, neck pain SKIN: Absent: rash, itching, pallor HEMATOLOGIC/IMMUNOLOGIC: Absent: easy bleeding, easy bruising, lymphadenopathy, frequent infections ENDOCRINE: Absent: unexplained weight gain, unexplained weight loss, heat intolerance, cold intolerance NEUROLOGIC: Absent: headache, focal weakness or paresthesias, dizziness, unsteady gait, seizure, mental status changes, bladder or bowel incontinence PSYCHIATRIC: Absent: anxiety, depression, suicidal or homicidal ideation, hallucinations. PHYSICAL EXAMINATION Vital Signs - 24 hr 10/16/18 05:17 Temperature 97.4 F L Pulse Rate 70 Respiratory 22 H Rate Blood Pressure 162/97 O2 Sat by Pulse 100 Oximetry (%) GEN: A&O, no acute distress, diaphoretic and mildly sluggish overall HEENT: Moist mucus membranes, PERRL, EOMI, no pharyngeal erythema or exudate NEURO: CN II-XII in tact, 5/5 strength throughout, good sensation without any deficit. Mild facial asymmetry noted with mild weakness on the left side of smile HEART: RRR, no murmurs noted LUNGS: CTA b/l, no wheezes or rales ABDOMEN: Soft, nontender, normoactive bowel sounds EXTREMITIES: no peripheral edema or calf tenderness Laboratory Results - last 24 hr 10/16/18 10/16/18 10/16/18 05:32 06:00 06:00 WBC 8.2 RBC 4.20 Hgb 12.7 Hct 37.7 MCV 89.6 MCH 30.1 MCHC 33.6 RDW 13.9 Plt Count 260 D MPV 7.5 Absolute Neuts (auto) 6.1 Neutrophils % 74.2 Lymphocytes % 17.1 Monocytes % 5.6 Eosinophils % 1.8 Basophils % 1.3 Nucleated RBC % 0 PT with INR 25.10 H INR 2.11 H PTT (Actin FS) 54.2 H Sodium Potassium Chloride Carbon Dioxide Anion Gap BUN Creatinine Est GFR (CKD-EPI)AfAm Est GFR (CKD-EPI)NonAf POC Glucometer 105 Random Glucose Calcium Total Bilirubin AST ALT Alkaline Phosphatase Troponin I Total Protein Albumin TSH Urine Color Urine Appearance Urine pH Ur Specific [place] Urine Protein Urine Glucose (UA) Urine Ketones Urine Blood Urine Nitrite Urine Bilirubin Urine Urobilinogen Ur Leukocyte Esterase Urine WBC (Auto) Urine RBC (Auto) Urine Casts (Auto) U Epithel Cells (Auto) Urine Bacteria (Auto) 10/16/18 10/16/18 10/16/18 06:00 06:00 06:00 WBC RBC Hgb Hct MCV MCH MCHC RDW Plt Count MPV Absolute Neuts (auto) Neutrophils % Lymphocytes % Monocytes % Eosinophils % Basophils % Nucleated RBC % PT with INR INR PTT (Actin FS) Sodium 133 L Potassium 3.4 L Chloride 98 Carbon Dioxide 25 Anion Gap 10 BUN 19 H Creatinine 1.3 Est GFR (CKD-EPI)AfAm 48.13 Est GFR (CKD-EPI)NonAf 41.53 POC Glucometer Random Glucose 112 H Calcium 8.9 Total Bilirubin 0.4 AST 20 ALT 22 Alkaline Phosphatase 103 Troponin I 0.02 Total Protein 7.5 Albumin 3.8 TSH 6.14 H Urine Color Yellow Urine Appearance Clear Urine pH 8.0 Ur Specific [place] 1.010 Urine Protein 1+ H Urine Glucose (UA) Negative Urine Ketones Negative Urine Blood Trace Urine Nitrite Negative Urine Bilirubin Negative Urine Urobilinogen 0.2 Ur Leukocyte Esterase 2+ H Urine WBC (Auto) 9 Urine RBC (Auto) 4 Urine Casts (Auto) 3 U Epithel Cells (Auto) 9.3 Urine Bacteria (Auto) 284.9 ASSESSMENT/PLAN: 68 yo Female with PMH HTN, Hypothyroidism, Panic Attacks, Prior MO, Arthritis, Unspecified irregular heart rhythm (paroxysmal a-fib??) admitted to the hospital following an episode of waking up with SOB, anxiety, nausea, diaphoresis, chest tightness, face tightness, and left arm paresthesias. Panic Attack -Resolved at this time -Pt should follow up with primary care physician if any further episodes for possible initiation of SSRI -However, pt states no panic attacks in the last year so this could be an isolated episode brought on by a stressful event waking her from sleep Less likely TIA/CVA -Head CT without any signs of bleeding or acute infarct -Neurology consulted, case discussed, -Carotid US ordered -MRI ordered -Telemetry monitoring -Continue Lipitor 20 mg PO HS -Could require high intensity statin +/- ASA or further AC if MRI were to reveal acute ischemic infarct HTN -Hold HCTZ until MRI to allow for permissive htn in the case of possible TIA/CVA -If normal MRI, then resume HCTZ 25 mg PO Daily Hypothyroidism -On synthroid 75 mcg PO Daily, Will continue here -TSH noted 6.14, will require outpatient follow up for further monitoring of TSH and management Arrhythmia (Paroxysmal A-fib??) -Likely paroxysmal a-fib given pt medication list and pt description of her diagnosis -Continue Xarelto 20 mg PO Daily -Continue Toprol XL 75 mg PO BID FEN -None -monitor and replete (hypoKalemia) -Na controlled diet DVT Prophylaxis -SCDs -Early Ambulation Disposition Telemetry Observation, can d/c if normal MRI after 24 hr telemetry monitoring Visit type - Emergency Visit Emergency Visit: Yes ED Registration Date: 10/16/18 Care time: The patient presented to the Emergency Department on the above date and was hospitalized for further evaluation of their emergent condition. - New Patient This patient is new to me today: Yes Date on this admission: 10/16/18 - Critical Care Critical Care patient: No
--- NOTE | 2018-10-16 12:11 | PN ---
Teaching Attending Note Name of Resident: Herb Nowak ATTENDING PHYSICIAN STATEMENT I saw and evaluated the patient. I reviewed the resident's note and discussed the case with the resident. I agree with the resident's findings and plan as documented. SUBJECTIVE: CC: L sided paresthesia. HPI: 68 y/o lady with h/o HTN, Arrhythmia ( possibly A fib), HLP, hypothyroidism , panic attacks and anxiety, who presented with L sided paresthesia. Glory suffers form anxiety and woke up last night with severe anxiety, SOB, feeling of cloudiness in the room, and felt like she was going to . this was similar to her panic attack. This lasted for few min , then she experienced L sided face and LUE tingling. upon arrival to ER , sx were better but still had L face sensation as if some one was pulling her face. She still has it a ttime of interview. family indicates that the asymmetry in her face is new and not normal. she denies PC , SON , cough, fever or chills, or dysuria. No abd pain. patient and family deny previous h/o stroke or TIA and they indicate a diagnosis of arrhythmia ( not sure what kind, but she takes xarelto for it ). she is compliant with her xarelto and does not miss any doses OBJECTIVE: NAD, awake, alert, oriented x3, and cooperative HEENT: EOMI, round equal pupils, reactive to light. Mild asymmetry in mouth angles, mild L lower facial droop. unicteric sclera. No JVD CV: RRR, no MRG Lungs: CTAB no wheezing or rales Abd: soft, NT, ND , NL BS. Ext : no edema, no erythema , no signs of fungal infection in feet Neuro: EOMI, LL facial droop, EOMI, round equal pupils reactive to light , tongue at mid line. Nl facial sensation. strength 5/5 in upper and lower extremities proximally and distally. reflexes: 2+ biceps b/l and 2+ R knee jerk , 1+ L knee jerk. sensation to light touch NL. ASSESSMENT AND PLAN: 68 y/o lady with h/o HTN, Arrhythmia ( possibly A fib), HLP, hypothyroidism, panic attacks and anxiety, who presented with L sided paresthesia. 1- L sided paresthesia and L sided facial droop: r/o CVA . paresthesia could be part of her panic attack - Brain MRI - lipids - cont statin and xarelto - neuro checks - tele - EKG Nl sinus withno ST, TW changes 2- PAnic attak. improved - advised to follow up with her PCP and psych for consideration of SSRI 3- Asymptomatic pyuria: will not treat even if urine cx is +. 4- H/o Hypothyroidism: cont her synthroid and repeat TSH as out pt . 5- Hypokalemia: replete 6- Cxray reviewed. infiltrates vs congestion , but patient has no resp sx or signs of infection. will repeat in Am. 7- H/o Arrhythmia: cont BB , and xarelto observe
[2018-10-16] MEDS ORDERED: HYDROCHLOROTHIAZIDE 25 MG TABLET (FP) ONE (12:54)
--- NOTE | 2018-10-16 12:56 | CON.NEURO ---
Consult - Alcohol/Substance Use Hx Alcohol Use: No - Smoking History Smoking history: Former smoker Have you smoked in the past 12 months: No Home Medications - Allergies Allergies/Adverse Reactions: Allergies Allergy/AdvReac Type Severity Reaction Status Date / Time No Known Allergies Allergy Verified 10/16/18 06:06 - Home Medications Home Medications: Ambulatory Orders Atorvastatin Ca [Lipitor] 20 mg PO DAILY 10/16/18 Hydrochlorothiazide 25 mg PO DAILY 10/16/18 Levothyroxine [Synthroid -] 75 mcg PO DAILY 10/16/18 Metoprolol Succinate [Toprol Xl] 75 mg PO BID 10/16/18 Omeprazole 40 mg PO DAILY 10/16/18 Rivaroxaban [Xarelto -] 20 mg PO DAILY 10/16/18 Physical Exam-Neuro Vital Signs: Vital Signs Temperature 97.4 F L 10/16/18 05:17 Pulse Rate 70 10/16/18 05:17 Respiratory Rate 22 H 10/16/18 05:17 Blood Pressure 162/97 10/16/18 05:17 O2 Sat by Pulse Oximetry (%) 100 10/16/18 05:17 Labs: CBC, BMP 10/16/18 06:00 10/16/18 06:00 INR, PTT INR 2.11 (0.83-1.09) H 10/16/18 06:00 Assessment/Plan cc Left face numbness adn weakness 68 yo Female with PMH HTN, Hypothyroidism, Panic Attacks, Prior AL, Arthritis, Unspecified irregular heart rhythm (paroxysmal a-fib??) came to hospital for having left face numbness and weakness. There is no speech disturbance or weakness or loc, no seizure. Patient is feeling much better and ct head is normal. she woke up in th emiddle of argument and was shaken and anxious no other focal neurological symptoms PMH As above Social History: Smoking: Former Alcohol: none Drugs: none FH, ROS, SH reviewed in chart NKDA HOME MEDICATIONS: Home Medications Medication Instructions Recorded Atorvastatin Ca [Lipitor] 20 mg PO DAILY 10/16/18 Hydrochlorothiazide 25 mg PO DAILY 10/16/18 Levothyroxine [Synthroid -] 75 mcg PO DAILY 10/16/18 Metoprolol Succinate [Toprol Xl] 75 mg PO BID 10/16/18 Omeprazole 40 mg PO DAILY 10/16/18 Rivaroxaban [Xarelto -] 20 mg PO DAILY 10/16/18 NEUROLOGICAL EXAMINATION Alert oriented x 3, speech is normal , no neck stiffness eomi, pupilks reactive , mild questionable facial palsy and almost disappeared after coaching her to give broad smile Motor 5/5 all ext , sensation is noraml ct head unremarkable Assessment/Plan new onset left face numbness ? facial palsy , risk factor htn, atrial fibrillation on xarelto. Plan continue xarelto and lipitor current dose mri of brain and carodi ultrasound if normal, than no change in medication thanking you so much Rigoberto Schultz MD
[2018-10-16] MEDS: HYDROCHLOROTHIAZIDE 25 MG TABLET (FP) PO SCH (13:21)
[2018-10-16 16:24] VITALS: BMI 33.0
[2018-10-16] MEDS ORDERED: RIVAROXABAN 20 MG TABLET PO SCH (18:00)
[2018-10-16] MEDS: metoPROLOL SUCCINATE 25 MG TAB.SR.24H (FP) PO SCH (21:13)
[2018-10-16] MEDS ORDERED: ATORVASTATIN CA 20 MG TABLET (FP) PO SCH (22:00)
[2018-10-17] MEDS ORDERED: LEVOTHYROXINE NA 75 MCG TABLET (FP) PO SCH (07:00)
[2018-10-17 07:05] LABS: BASO % 0.9 % (0-2.0); EOS % 5.8 % (0-4.5); HEMATOCRIT 38.3 % (32.4-45.2); HEMOGLOBIN 12.6 GM/dL (10.7-15.3); LYMPH % 42.2 % (8-40); MCH 30.2 pg (25.7-33.7); MCHC 32.9 g/dl (32.0-36.0); MEAN CELL VOLUME 91.6 fl (80-96); MEAN PLT VOLUME 8.2 fl (7.5-11.1); NEUT % 44.1 % (42.8-82.8); PLATELET COUNT 227 K/MM3 (134-434); RBC 4.18 M/mm3 (3.60-5.2); RDW 14.2 % (11.6-15.6); WHITE BLOOD COUNT 4.8 K/mm3 (4.0-10.0)
[2018-10-17] MEDS: SODIUM CHLORIDE 1,000 ML IV SCH (07:15)
[2018-10-17 07:54] LABS: ALBUMIN 3.6 g/dl (3.4-5.0); BILIRUBIN,TOTAL 0.6 mg/dL (0.2-1); CALCIUM 8.9 mg/dL (8.5-10.1); CREATININE 1.1 mg/dL (0.55-1.3); MAGNESIUM 1.8 mg/dL (1.8-2.4); PHOSPHOROUS 3.8 mg/dL (2.5-4.9); POTASSIUM 3.7 mmol/L (3.5-5.1); TOT PROT 6.9 g/dl (6.4-8.2)
[2018-10-17 08:42] VITALS: BP 144/92; PULSE 68; TEMP 98.3
[2018-10-17] MEDS: metoPROLOL SUCCINATE 25 MG TAB.SR.24H (FP) PO SCH (09:42)
[2018-10-17] MEDS: HYDROCHLOROTHIAZIDE 25 MG TABLET (FP) PO SCH (09:42)
[2018-10-17] MEDS ORDERED: PANTOPRAZOLE 40 MG TABLET (FP) PO SCH (10:00)
--- NOTE | 2018-10-17 13:34 | PN ---
Progress Note (short form) - Note Progress Note: Subjective: no fever or chills. no weakness, numbness or tingling Objective: Vital Signs: Last Vital Signs Temp Pulse Resp BP Pulse Ox 98.3 F 68 20 144/92 98 10/17/18 08:29 10/17/18 08:29 10/17/18 08:29 10/17/18 08:29 10/17/18 00:00 Laboratory Results - last 24 hr 10/17/18 10/17/18 05:35 05:35 WBC 4.8 RBC 4.18 Hgb 12.6 Hct 38.3 MCV 91.6 MCH 30.2 MCHC 32.9 RDW 14.2 Plt Count 227 MPV 8.2 Absolute Neuts (auto) 2.1 Neutrophils % 44.1 D Lymphocytes % 42.2 H D Monocytes % 7.0 Eosinophils % 5.8 H D Basophils % 0.9 Nucleated RBC % 0 Sodium 137 Potassium 3.7 Chloride 102 Carbon Dioxide 27 Anion Gap 7 L BUN 16 Creatinine 1.1 Est GFR (CKD-EPI)AfAm 58.91 Est GFR (CKD-EPI)NonAf 50.83 Random Glucose 92 Calcium 8.9 Phosphorus 3.8 Magnesium 1.8 Total Bilirubin 0.6 AST 16 ALT 18 Alkaline Phosphatase 98 Total Protein 6.9 Albumin 3.6 Triglycerides 134 Cholesterol 159 Total LDL Cholesterol 96 HDL Cholesterol 44 Physical Exam: NAD, awake, alert, oriented x3, and cooperative MMM CV: RRR, no MRG Lungs: CTAB no wheezing or rales Ext : no edema, no erythema Neuro: EOMI, LL facial droop, EOMI, round equal pupils reactive to light , tongue at mid line. Nl facial sensation. strength 5/5 in upper and lower extremities proximally and distally. sensation to light touch NL. ASSESSMENT AND PLAN: 68 y/o lady with h/o HTN, Arrhythmia ( possibly A fib), HLP, hypothyroidism, panic attacks and anxiety, who presented with L sided paresthesia. 1- L sided paresthesia and L sided facial droop:facial asymmetry persists but there is no stroke on MRI. - cont statin - Brain MRI - no evetns on tele 2- PAnic attak. - advised to follow up with her PCP and psych for consideration of SSRI 3- Asymptomatic pyuria:no treatment 4- H/o Hypothyroidism: cont her synthroid and repeat TSH as out pt . 6-repeat cxray reviewed. 7- H/o Arrhythmia ( likley A fib ) : cont BB , and xarelto dc home . she walked with me about 40 feet , with no assistance and had steady gait Visit type - Emergency Visit Emergency Visit: Yes ED Registration Date: 10/16/18 Care time: The patient presented to the Emergency Department on the above date and was hospitalized for further evaluation of their emergent condition. - New Patient This patient is new to me today: No - Critical Care Critical Care patient: No
--- NOTE | 2018-10-18 13:20 | DS ---
Physical Exam: SUBJECTIVE: See attending note from 10/17/18 OBJECTIVE: PHYSICAL EXAM See attending note from 10/17/18 LABS HOSPITAL COURSE: Date of Admission:10/16/18 Date of Discharge: 10/18/18 HPI on Admission: 68 yo Female with PMH HTN, Hypothyroidism, Panic Attacks, Prior MN, Arthritis, Unspecified irregular heart rhythm (paroxysmal a-fib??) admitted to the hospital following an episode of waking up with SOB, anxiety, nausea, diaphoresis, chest tightness, face tightness, and left arm paresthesias. She states she was awoken by an argument outside where she lives. She states she awoke and became anxious and ran outside. She returned inside where her family tried to calm her however she was breathing rapidly, feeling nauseas and unable to calm down. The family endorses praying with her and attempting to help her control her breathing. During this time she began to feel left sided face tightness and left arm tingling. The family then called 911 out of fear that she was having a heart attack or stroke. She states that her symptoms have completely resolved at this time with the exception of some of the face tightness on the left. She also endorses that she is very diaphoretic at baseline and this is not something that is new to her today. She denies any weakness, paresthesia, blurred vision, slurred speech, nausea, vomiting, diarrhea. Hospital course: Pts symptoms almost completely resolved prior to admission other than some facial tightness. Neurology was consulted who agreed that it was very unlikely acute CVA. MRI was completed which did not reveal any areas of acute ischemia. Pt was deemed medically safe for discharge with close follow up by primary care. She should also follow up with primary for management of her panic attacks as this episode was more likely related to panic attack. Minutes to complete discharge: 35 Discharge Summary Reason For Visit: TRANSIENT ISCHEMIC ATTACK Condition: Improved - Instructions Diet, Activity, Other Instructions: - please follow with your PCP and ask to be referred to psychiatry to manage your panic attacks - al the symptoms you have experienced might have been due to the panic attack, we did not find a stroke. but could not rule out a mini stroke ( TIA). - please follow with Dr. Schultz , in 1 week - continue your home medications Referrals: Rigoberto Schultz MD [Staff Physician] - 1 Week Disposition: HOME - Home Medications Comprehensive Discharge Medication List: Ambulatory Orders Atorvastatin Ca [Lipitor] 20 mg PO DAILY 10/16/18 Hydrochlorothiazide 25 mg PO DAILY 10/16/18 Levothyroxine [Synthroid -] 75 mcg PO DAILY 10/16/18 Metoprolol Succinate [Toprol Xl] 75 mg PO BID 10/16/18 Omeprazole 40 mg PO DAILY 10/16/18 Rivaroxaban [Xarelto -] 20 mg PO DAILY 10/16/18 This patient is new to me today: No Emergency Visit: Yes ED Registration Date: 10/16/18 Care time: The patient presented to the Emergency Department on the above date and was hospitalized for further evaluation of their emergent condition. Critical Care patient: No - Discharge Referral Referred to [facility] Med P.C.: No
== END 2018-10-17 11:48 | disposition home or self-care (01) ==
LOC: JER 05:08 → JERBED 10:24 → J4W 14:59
PROVIDERS: ADMIT Internal Medicine; ATTEND Internal Medicine
DX: F41.0 Panic disorder [episodic paroxysmal anxiety] (principal); I10 Essential (primary) hypertension; E03.9 Hypothyroidism, unspecified; I49.9 Cardiac arrhythmia, unspecified; I25.10 Atherosclerotic heart disease of native coronary artery without angina pectoris; I25.2 Old myocardial infarction; M19.90 Unspecified osteoarthritis, unspecified site; Z87.891 Personal history of nicotine dependence; R20.2 Paresthesia of skin; R29.810 Facial weakness; E87.6 Hypokalemia; N39.0 Urinary tract infection, site not specified
CPT/HCPCS: 36415; 70450-TC; 70551-TC; 71045-TC-FY; 71046-TC-FY; 80053; 80061; 81003; 82962; 83721; 83735; 84100; 84443; 84484; 85025; 85610; 85730; 87086; 93005; 93010; 93880-TC; 99285-25; G0378; J7030

== ENCOUNTER 2019-12-11 05:09 | Observation (INO) | payer OTHER ==
--- NOTE | 2019-12-11 05:18 | PDOC ---
History of Present Illness - General Chief Complaint: Respiratory Time Seen by Provider: 12/11/19 05:17 History Source: Patient Exam Limitations: No Limitations - History of Present Illness Initial Comments: 69 y.o female with history of Afib on Xeralto, HTN, hypothyroidism presents to the ED with nausea/vomiting and dizziness. She states that she had nausea last night and woke up this morning with increased nausea. She reports chest pain midsternal nonradiating, described as chest tightness. Reports occasional SOB, persistent cough, PND, palpitations, and lower extremity edema. Denies fevers, syncope, orthopnea, abdominal pain. 12/11/19 06:03 Past History - Medical History Allergies/Adverse Reactions: Allergies Allergy/AdvReac Type Severity Reaction Status Date / Time No Known Allergies Allergy Verified 12/11/19 05:19 Home Medications: Ambulatory Orders Allopurinol 300 mg PO DAILY 08/18/19 Atorvastatin Ca [Lipitor] 20 mg PO HS 08/18/19 Levothyroxine [Synthroid -] 75 mcg PO DAILY 08/18/19 Rivaroxaban [Xarelto -] 20 mg PO DAILY 08/18/19 Levothyroxine [Synthroid -] 75 mcg PO DAILY@0700 tablet 12/12/19 Olmesartan Medoxomil [Benicar -] 40 mg PO DAILY 12/12/19 Omeprazole 40 mg PO DAILY 12/12/19 Metoprolol Succinate [Toprol XL -] 150 mg PO DAILY #30 tab.sr.24h 12/13/19 Cefpodoxime Proxetil [Vantin -] 200 mg PO Q12H #4 tablet 12/14/19 Cardiac Disorders: Yes CVA: Yes (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 No: Orthopnea Cardiac (ROS): Yes: Chest Pain, Edema, Lightheadedness, Palpitations, Chest Tightness. No: Syncope ABD/GI: Yes: Nausea, Vomiting *Physical Exam - Physical Exam General Appearance: Yes: Nourished, Appropriately Dressed. No: Apparent Distress HEENT: positive: EOMI Neck: positive: Trachea midline Respiratory/Chest: positive: Lungs Clear, Normal Breath Sounds Cardiovascular: positive: Regular Rhythm, Regular Rate, S1, S2, Edema (nonpitting LE bilaterally) Musculoskeletal: positive: Normal Inspection Extremity: positive: Normal Inspection Integumentary: positive: Normal Color, Dry, Warm ED Treatment Course - LABORATORY CBC & Chemistry Diagram: 12/14/19 05:35 12/14/19 05:35 Medical Decision Making - Medical Decision Making 69 y.o female with history of Afib on Xeralto, HTN, hypothyroidism presents to the ED with nausea/vomiting, dizziness, and chest tightness. She was given 4mg IV zofran. Differential includes but is not limited to ACS, new onset HF, PE, or PNA. CBC is within normal limits. Pending CMP, cardiac profile, TSH, CXR. Sign out to day team. Discharge - Discharge Information Problems reviewed: Yes Clinical Impression/Diagnosis: Shortness of breath Condition: Stable - Follow up/Referral - Patient Discharge Instructions - Post Discharge Activity
--- NOTE | 2019-12-11 05:47 | PDOC ---
Attending Attestation - Resident Resident Name: Marky Anton - ED Attending Attestation I have performed the following: I have examined & evaluated the patient, The case was reviewed & discussed with the resident, I agree w/resident's findings & plan - HPI HPI: 12/11/19 07:15 Pt comes with SOB. Pt was fine last night. Suddenly at 3AM she woke feeling nauseous, like she needed to have a BM, sweaty despite the AC and SOB. No chest pain . No new palpitations. Pt states that she always has palpitations. 12/11/19 07:28 BP is 167/87 R arm; 176/104 L arm Pt sates that 2 weeks ago PMD Lionel changed her BP meds because she was coughing too much. Pt has no cough, but the change of BP meds makes her feel that she is full o water up to her throat. Pt has no fever and no chills. She has no other complaints. - Physicial Exam PE: 12/11/19 07:15 Agree with resident exam 12/11/19 07:31 No pitting edema heart RRR BP elevated Pt has normal abd exam normal HEENT - Medical Decision Making 12/11/19 07:15 Pt signed out to the day team/. 12/11/19 07:32 Pt has a UTI; BNP will be added on I just gave some SL NTG and 1inch nitropaste to control BP until labs return. Discharge - Discharge Information Problems reviewed: Yes Clinical Impression/Diagnosis: Shortness of breath Condition: Stable - Follow up/Referral - Patient Discharge Instructions - Post Discharge Activity
[2019-12-11] MEDS ORDERED: ONDANSETRON 4 MG/2 ML VIAL IVPUSH ONE (06:07)
[2019-12-11 06:30] LABS: BASO % 0.7 % (0-2.0); HEMATOCRIT 40.2 % (32.4-45.2); LYMPH % 37.1 % (8-40); MCH 29.8 pg (25.7-33.7); MCHC 32.5 g/dl (32.0-36.0); MEAN PLT VOLUME 8.2 fl (7.5-11.1); MONO % 5.5 % (3.8-10.2); NEUT % 51.7 % (42.8-82.8); PLATELET COUNT 215 K/MM3 (134-434); RBC 4.37 M/mm3 (3.60-5.2); RDW 14.4 % (11.6-15.6); WHITE BLOOD COUNT 5.5 K/mm3 (4.0-10.0)
--- NOTE | 2019-12-11 07:15 | PDOC ---
*Physical Exam - Vital Signs Last Vital Signs Temp Pulse Resp BP Pulse Ox 97.8 F 65 20 177/107 H 100 12/11/19 05:19 12/11/19 06:26 12/11/19 06:26 12/11/19 06:26 12/11/19 06:26 Heart Score/ECG Review - History History: Moderately suspicious - Electrocardiogram EKG: Normal - Age Age: >/= 65 - Risk Factors Risk Factors Heart Score: Yes Hx Hypertension, Yes Positive family hx of cardiac disease Based on the list above the patient has:: 1-2 risk factors - Troponin Troponin: </= normal limit - Score Heart Score - Total: 4 ED Treatment Course - LABORATORY CBC & Chemistry Diagram: 12/11/19 06:17 12/11/19 06:17 - ADDITIONAL ORDERS Additional order review: Laboratory Results 12/11/19 05:27 POC Glucometer 111 12/11/19 12/11/19 06:17 05:27 RBC 4.37 MCV 92.0 MCHC 32.5 RDW 14.4 MPV 8.2 D Neutrophils % 51.7 Lymphocytes % 37.1 Monocytes % 5.5 Eosinophils % 5.0 H D Basophils % 0.7 POC Glucometer 111 - Medications Given in the ED: ED Medications Discontinued Medications Generic Name Dose Route Start Last Admin Trade Name [place] PRN Reason Stop Dose Admin Ondansetron HCl 4 mg 12/11/19 06:07 12/11/19 06:24 Zofran Injection IVPUSH 12/11/19 06:08 4 mg ONCE ONE Administration Medical Decision Making - Medical Decision Making 12/11/19 07:15 69F w/hx Afib on Xeralto, HTN, hypothyroidism p/w chest pain. 0300 sob, diaphoretic, nauseated, chest tightness. No chest pain, palpitations. PCP: Dr. Flowers Pending: labs Dispo: Admit cardiac obs Discharge - Discharge Information Problems reviewed: Yes Clinical Impression/Diagnosis: Shortness of breath Condition: Stable - Admission Yes - Follow up/Referral - Patient Discharge Instructions - Post Discharge Activity
[2019-12-11 07:18] LABS: EPI CELLS 25 /uL (0-25.1); HYALINE CASTS 0 /uL (0-3.1); PH,URINE 7.5 (5.0-8.0); URINE APPEARANCE CLEAR; URINE BACTERIA 441 /uL (0-1359); URINE BILIRUBIN NEGATIVE (NEGATIVE); URINE COLOR YELLOW; URINE GLUCOSE (UA) NEGATIVE (NEGATIVE); URINE KETONE NEGATIVE (NEGATIVE); URINE LEUK ESTERASE 2+ (NEGATIVE); URINE NITRITE NEGATIVE (NEGATIVE); URINE PROTEIN TRACE (NEGATIVE); URINE RBC 13 /uL (0-23.9); URINE UROBILINOGEN 0.2 mg/dL (0.2-1.0); URINE WBC 27 /uL (0-25.8)
[2019-12-11 07:20] LABS: ALBUMIN 3.6 g/dl (3.4-5.0); ALK PHOS 91 U/L (45-117); ANION GAP 8 MMOL/L (8-16); BILIRUBIN,TOTAL 0.4 mg/dL (0.2-1); BLOOD UREA NITROGEN 12.1 mg/dL (7-18); CALCIUM 8.7 mg/dL (8.5-10.1); CHLORIDE 103 mmol/L (98-107); CO2 26 mmol/L (21-32); CREATININE 1.1 mg/dL (0.55-1.3); GLUCOSE,RANDOM 103 mg/dL (74-106); POTASSIUM 3.9 mmol/L (3.5-5.1); SGOT/AST 20 U/L (15-37); SGPT/ALT 18 U/L (13-61); SODIUM 137 mmol/L (136-145); TOT PROT 7.4 g/dl (6.4-8.2)
[2019-12-11] MEDS ORDERED: CEFTRIAXONE 1,000 MG in DEXTROSE 5%-WATER - 50 ML IVPB ONE (07:26)
[2019-12-11] MEDS ORDERED: NITROGLYCERIN 2% OINTMENT - 1GM PACKET TD ONE ×2 (07:27)
[2019-12-11] MEDS ORDERED: NITROGLYCERIN SUBLINGUAL 1/150 0.4 MG TAB SL ONE (07:27)
[2019-12-11 07:58] LABS: N-TERMINAL BNP 133.6 pg/ml (5-125)
[2019-12-11] MEDS ORDERED: CEFTRIAXONE 1 GM/50 ML BAG ONE ×2 (09:20→19:46)
--- NOTE | 2019-12-11 11:27 | EKG ---
Test Reason : Blood Pressure : / mmHG Vent. Rate : 068 BPM Atrial Rate : 068 BPM P-R Int : 166 ms QRS Dur : 080 ms QT Int : 410 ms P-R-T Axes : 045 004 019 degrees QTc Int : 435 ms SINUS RHYTHM WITH PREMATURE ATRIAL COMPLEXES OTHERWISE NORMAL ECG WHEN COMPARED WITH ECG OF 16-OCT-2018 05:19, PREMATURE ATRIAL COMPLEXES ARE NOW PRESENT Confirmed by MARGIE CAMPBELL MD ([id number]) on 12/11/2019 11:26:55 AM Referred By: Confirmed By:MARGIE CAMPBELL MD
[2019-12-11 15:18] LABS: CHOLESTEROL 148 mg/dL (50-200); HDL CHOLESTEROL 35 mg/dL (40-60); LDL CHOLESTEROL (ONLY SJRH) 62 mg/dL (5-100); TRIGLYCERIDES 271 mg/dL (0-150)
[2019-12-11] MEDS: CEFTRIAXONE 1 GM in DEXTROSE 5%-WATER - 100 ML IVPB SCH ×2 (19:50→22:09)
--- NOTE | 2019-12-11 20:11 | HP ---
CHIEF COMPLAINT: SOB HISTORY OF PRESENT ILLNESS: 69 F h/o HTN, HLD, hypothyroidism, Afib on AC, gout presents with episode of palpitations, SOB, anxiety and sweating which woke her up at night. Patient also endorses L sided chest discomfort which lasted about 10 mins in AM which prompted her to go to ED. Denies recent travel, denies fever/chill/N/V/D/cough, denies possible COVID exposure. Endorses significant snoring at night, EDS, nighttime awakenings often with a gasp of air or choking sensation and often wakes up with dry throat and GERD-symptoms. ER course was notable for: (1) Trops neg. x1 (2) EKG Afib (3) COVID pending Recent Travel: pending PAST MEDICAL HISTORY: as above PAST SURGICAL HISTORY: denies Social History: denies x3 Allergies No Known Allergies Allergy (Verified 12/11/19 05:19) HOME MEDICATIONS: Home Medications Medication Instructions Recorded Allopurinol 300 mg PO DAILY 08/18/19 Atorvastatin Ca [Lipitor] 20 mg PO HS 08/18/19 Levothyroxine [Synthroid -] 75 mcg PO DAILY 08/18/19 Rivaroxaban [Xarelto -] 20 mg PO DAILY 08/18/19 Cefpodoxime Proxetil [Vantin (Nf) 100 mg PO BID 3 Days #6 tablet 10/03/19 -] Metoprolol Tartrate 75 mg PO BID #60 tablet 10/03/19 PHYSICAL EXAMINATION Vital Signs - 24 hr 12/11/19 12/11/19 12/11/19 05:19 06:26 07:56 Temperature 97.8 F Pulse Rate 65 Pulse Rate [ 65 59 L Right Radial] Respiratory 20 20 14 Rate Blood Pressure 188/115 H Blood Pressure 177/107 H 112/67 [Left Arm] O2 Sat by Pulse 99 100 98 Oximetry (%) GENERAL: Awake, alert, and fully oriented, in no acute distress, obese HEENT NC/aT, EOMI, no JVD, MAllampati 4, wide neck circumference LUNGS: Breath sounds equal, clear to auscultation bilaterally. No wheezes, and no crackles. No accessory muscle use. HEART: Irregularly irregular, normal rate ABDOMEN: obese, Soft, nontender, normoactive bowel sounds, no guarding, no rebound, no masses. No hepatomegaly or splenomegaly. MUSCULOSKELETAL: Normal range of motion at all joints. No bony deformities or tenderness. No CVA tenderness. UPPER EXTREMITIES: 2+ pulses, warm, well-perfused. No cyanosis. No clubbing. No peripheral edema. LOWER EXTREMITIES: 2+ pulses, warm, well-perfused. No calf tenderness. No peripheral edema. NEUROLOGICAL: Cranial nerves II-XII intact. Normal speech. Normal gait. PSYCHIATRIC: Cooperative. Good eye contact. Appropriate mood and affect. SKIN: Warm, dry, normal turgor, no rashes or lesions noted, normal capillary refill. Laboratory Results - last 24 hr 12/11/19 12/11/19 12/11/19 05:27 06:17 06:17 WBC 5.5 RBC 4.37 Hgb 13.0 Hct 40.2 MCV 92.0 MCH 29.8 MCHC 32.5 RDW 14.4 Plt Count 215 MPV 8.2 D Absolute Neuts (auto) 2.8 Neutrophils % 51.7 Lymphocytes % 37.1 Monocytes % 5.5 Eosinophils % 5.0 H D Basophils % 0.7 Nucleated RBC % 0 Sodium 137 Potassium 3.9 Chloride 103 Carbon Dioxide 26 Anion Gap 8 BUN 12.1 Creatinine 1.1 Est GFR (CKD-EPI)AfAm 58.50 Est GFR (CKD-EPI)NonAf 50.47 POC Glucometer 111 Random Glucose 103 Hemoglobin A1c % Calcium 8.7 Total Bilirubin 0.4 AST 20 ALT 18 Alkaline Phosphatase 91 Creatine Kinase 90 Troponin I < 0.02 B-Natriuretic Peptide 133.6 H Total Protein 7.4 Albumin 3.6 Triglycerides 271 H Cholesterol 148 Total LDL Cholesterol 62 HDL Cholesterol 35 L TSH 7.48 H Urine Color Urine Appearance Urine pH Ur Specific [place] Urine Protein Urine Glucose (UA) Urine Ketones Urine Blood Urine Nitrite Urine Bilirubin Urine Urobilinogen Ur Leukocyte Esterase Urine WBC (Auto) Urine RBC (Auto) Urine Casts (Auto) U Epithel Cells (Auto) Urine Bacteria (Auto) 12/11/19 12/11/19 06:40 14:45 WBC RBC Hgb Hct MCV MCH MCHC RDW Plt Count MPV Absolute Neuts (auto) Neutrophils % Lymphocytes % Monocytes % Eosinophils % Basophils % Nucleated RBC % Sodium Potassium Chloride Carbon Dioxide Anion Gap BUN Creatinine Est GFR (CKD-EPI)AfAm Est GFR (CKD-EPI)NonAf POC Glucometer Random Glucose Hemoglobin A1c % 5.9 Calcium Total Bilirubin AST ALT Alkaline Phosphatase Creatine Kinase Troponin I B-Natriuretic Peptide Total Protein Albumin Triglycerides Cholesterol Total LDL Cholesterol HDL Cholesterol TSH Urine Color Yellow Urine Appearance Clear Urine pH 7.5 D Ur Specific [place] 1.010 Urine Protein Trace Urine Glucose (UA) Negative Urine Ketones Negative Urine Blood Negative Urine Nitrite Negative Urine Bilirubin Negative Urine Urobilinogen 0.2 Ur Leukocyte Esterase 2+ H Urine WBC (Auto) 27 Urine RBC (Auto) 13 Urine Casts (Auto) 0 U Epithel Cells (Auto) 25 Urine Bacteria (Auto) 441 Current Medications Generic Name Dose Route Start Last Admin Trade Name Freq PRN Reason Stop Dose Admin Allopurinol 300 mg 12/11/19 20:00 Zyloprim - PO DAILY ALEKSANDRA Atorvastatin Calcium 20 mg 12/11/19 22:00 Lipitor - PO HS ALEKSANDRA Ceftriaxone Sodium 1 gm/ 100 mls @ 200 mls/hr 12/11/19 19:16 12/11/19 19:50 Dextrose IVPB 12/18/19 19:15 200 mls/hr BID ALEKSANDRA Administration Levothyroxine Sodium 100 mcg 12/12/19 07:00 Synthroid - PO DAILY@0700 [facility] Metoprolol Tartrate 75 mg 12/11/19 20:30 Lopressor - PO BID [facility] Rivaroxaban 20 mg 12/12/19 18:00 Xarelto PO DAILY@1800 [facility] ASSESSMENT/PLAN: 69 F Acute episode of SOB/?MIKAL exacerbation/apneic event Afib on AC HTN urgency UTI HLD Obesity Snoring Excessive daytime sleepiness Hypothyroidism Gout Plan: Ceftriaxone for UTI, follow urine cx Obtain 2 neg. trops w/ EKG, order Echo Sleep screen overnight to screen for MIKAL (high STOP BANG) Cont. BB/AC/Statin TSH elevated, either ?non-compliance w/ Synthroid or needs higher dose, will get FT4, increase Synthroid to 100mcg daily Cardiology evaluation DVT ppx: Xarelto Visit type - Emergency Visit Emergency Visit: Yes ED Registration Date: 12/11/19 Care time: The patient presented to the Emergency Department on the above date and was hospitalized for further evaluation of their emergent condition. - New Patient This patient is new to me today: Yes Date on this admission: 12/11/19 - Critical Care Critical Care patient: No
[2019-12-11] MEDS: ALLOPURINOL 300 MG TABLET (FP) PO SCH (20:34)
[2019-12-11] MEDS: METOPROLOL TARTRATE 25 MG TABLET (FP) PO SCH ×2 (20:34→22:09)
[2019-12-11] MEDS ORDERED: ATORVASTATIN CA 20 MG TABLET (FP) ONE (21:43)
[2019-12-11] MEDS: ATORVASTATIN CA 20 MG TABLET (FP) PO SCH (22:08)
[2019-12-12 03:11] LABS: CHOLESTEROL 158 mg/dL (50-200); HDL CHOLESTEROL 41 mg/dL (40-60); LDL CHOLESTEROL (ONLY SJRH) 74 mg/dL (5-100); TRIGLYCERIDES 203 mg/dL (0-150)
[2019-12-12 05:09] VITALS: BMI 34.0
[2019-12-12] MEDS ORDERED: LEVOTHYROXINE NA 100 MCG TABLET (FP) PO SCH (07:00)
[2019-12-12] MEDS ORDERED: LEVOTHYROXINE NA 75 MCG TABLET (FP) PO SCH (07:00)
--- NOTE | 2019-12-12 08:37 | PN ---
Teaching Attending Note Name of Resident: Vaishali Lazaro ATTENDING PHYSICIAN STATEMENT I saw and evaluated the patient. I reviewed the resident's note and discussed the case with the resident. I agree with the resident's findings and plan as documented. SUBJECTIVE:Patient feels improved since hospitalization OBJECTIVE: Vital Signs Temperature 98.1 F 12/12/19 06:00 Pulse Rate 53 L 12/12/19 06:00 Respiratory Rate 13 12/12/19 06:00 Blood Pressure 150/91 12/12/19 06:00 O2 Sat by Pulse Oximetry (%) 99 12/12/19 04:00 General: Elderly woman, comfortable, not in distress HEENT mucous membranes moist, no anemia, no jaundice, PERRLA, no nystagmus Neck: No JVD, supple, no bruit, thyroid palpably normal, normal carotid pulsations. Chest: Nontender, clear to auscultation bilaterally CVS: S1-S2 regular no murmur/gallop/rub Abdomen: Nondistended, soft, bowel sounds present. Extremities: No edema., No Calf tenderness, pulses present [employer]: AO X3 , no gross motor sensory deficit CBC, BMP 12/11/19 06:17 12/11/19 06:17 Echocardiogram: In September 2019 showed normal ejection fraction Active Medications Allopurinol (Zyloprim -) 300 mg PO DAILY [facility] Last Admin: 12/11/19 20:34 Dose: 300 mg Documented by: Atorvastatin Calcium (Lipitor -) 20 mg PO HS [facility] Last Admin: 12/11/19 22:08 Dose: 20 mg Documented by: Ceftriaxone Sodium 1 gm/ (Dextrose) 100 mls @ 200 mls/hr IVPB BID [facility] Stop: 12/18/19 19:15 Last Admin: 12/11/19 22:09 Dose: Not Given Documented by: Levothyroxine Sodium (Synthroid -) 100 mcg PO DAILY@0700 [facility] Last Admin: 12/12/19 06:34 Dose: 100 mcg Documented by: Metoprolol Tartrate (Lopressor -) 75 mg PO BID [facility] Last Admin: 12/11/19 22:09 Dose: Not Given Documented by: Rivaroxaban (Xarelto) 20 mg PO DAILY@1800 [facility] ASSESSMENT AND PLAN: 69-year-old female, obese BMI 34 history of hypertension, hypercholesteremia, hypothyroidism status post radiation therapy now hypothyroidism, gout, CAD status post CO in 2007 no documentation, paroxysmal atrial fibrillation on anticoagulation with Xarelto, suspected MIKAL, anxiety disorders recently discharged from [facility] in September 2019, yesterday presented with an episode of palpitation with left-sided chest tightness that woke up from sleep, pain was pressure-like lasted for few minutes and resolved on arrival to ED patient was hemodynamically stable troponin I and EKG was nondiagnostic for ACS, admitted on telemetry for further observation and management. Active issues; Chest pain rule out ACS Problem List - Problems (1) Chest pain Assessment/Plan: Although atypical can be tachycardia induced due to rapid ventricular rate, now resolved, normal serial cardiac enzyme, EKG no acute ST changes, recent echo was normal, he returned with the cardiology consult will follow cardiology return duration as per cardiology note last stress test was in 2015 that was reported normal. Continue ASA and statin. Problems reviewed: Yes Code(s): R07.9 - CHEST PAIN, UNSPECIFIED (2) Paroxysmal atrial fibrillation Assessment/Plan: Continue Xarelto, continue beta-sarah for further rate control if recurrence consider EP consult as an outpatient, please discussed with the primary graphic artist . Problems reviewed: Yes Code(s): I48.0 - PAROXYSMAL ATRIAL FIBRILLATION (3) Hypothyroid Assessment/Plan: Continue levothyroxine TSH is at target will continue 75 mcg/day Problems reviewed: Yes Code(s): E03.9 - HYPOTHYROIDISM, UNSPECIFIED (4) Hypertension Assessment/Plan: Well-controlled continue current medication Problems reviewed: Yes Code(s): I10 - ESSENTIAL (PRIMARY) HYPERTENSION (5) Shortness of breath Assessment/Plan: Has recurrent shortness of breath choking during night consider sleep study rule out MIKAL. Problems reviewed: Yes Code(s): R06.02 - SHORTNESS OF BREATH (6) GERD with apnea Assessment/Plan: Possibility of GERD with apnea need sleep study continue PPI. Problems reviewed: Yes Code(s): K21.9 - GASTRO-ESOPHAGEAL REFLUX DISEASE WITHOUT ESOPHAGITIS; R06.81 - APNEA, NOT ELSEWHERE CLASSIFIED
--- NOTE | 2019-12-12 09:20 | CON.CARD ---
Consult Consult Specialty:: Cardiology - History of Present Illness History of Present Illness: 69 F h/o HTN, HLD, hypothyroidism, Afib on AC, gout presents with episode of palpitations, SOB, anxiety and sweating which woke her up at night. Patient also endorses L sided chest discomfort which lasted about 10 mins in AM which prompted her to go to ED. Denies recent travel, denies fever/chill/N/V/D/cough, denies possible COVID exposure. Endorses significant snoring at night, EDS, nighttime awakenings often with a gasp of air or choking sensation and often wakes up with dry throat and GERD-symptoms. PMH stress treadmill MIBI multiple times, the latest in ?2015. ?Electrical cardioversion for ?SVT/AF at [facility] in ? 2009 (pt saw Dr. Cohen, architectural wood model maker and family friend, during that time). Ongoing medical problems Hypertension Hyperlipidemia [place] - 2007 Hyperthyroidism s/p radiation Rapid heart rate s/p cardioversion at [facility] ?PSVT Atrial Fibrillation Anxiety/depression Lower back surgery gout - History Source History Provided By: Patient, Medical Record - Past Medical History Cardio/Vascular: Yes: AFIB, CAD, HTN, Hyperlipdemia - Alcohol/Substance Use Hx Alcohol Use: Yes (1 beer once every few months) - Smoking History Smoking history: Former smoker Have you smoked in the past 12 months: No If you are a former smoker, when did you quit?: 2000 Home Medications - Allergies Allergies/Adverse Reactions: Allergies Allergy/AdvReac Type Severity Reaction Status Date / Time No Known Allergies Allergy Verified 12/11/19 05:19 - Home Medications Home Medications: Ambulatory Orders Allopurinol 300 mg PO DAILY 08/18/19 Atorvastatin Ca [Lipitor] 20 mg PO HS 08/18/19 Levothyroxine [Synthroid -] 75 mcg PO DAILY 08/18/19 Rivaroxaban [Xarelto -] 20 mg PO DAILY 08/18/19 Levothyroxine [Synthroid -] 75 mcg PO DAILY@0700 tablet 12/12/19 Metoprolol Succinate [Toprol Xl] 150 mg PO DAILY 12/12/19 Olmesartan Medoxomil [Benicar -] 40 mg PO DAILY 12/12/19 Omeprazole 40 mg PO DAILY 12/12/19 Review of Systems - Review of Systems Constitutional: reports: No Symptoms Eyes: reports: No Symptoms HENT: reports: No Symptoms Neck: reports: No Symptoms Cardiovascular: reports: Chest Pain, Palpitations Respiratory: reports: No Symptoms Gastrointestinal: reports: No Symptoms Genitourinary: reports: No Symptoms Breasts: reports: No Symptoms Reported Musculoskeletal: reports: No Symptoms Integumentary: reports: No Symptoms Neurological: reports: No Symptoms Endocrine: reports: No Symptoms Hematology/Lymphatic: reports: No Symptoms Psychiatric: reports: No Symptoms Vital Signs: Vital Signs Temperature 98.1 F 12/12/19 06:00 Pulse Rate 53 L 12/12/19 06:00 Respiratory Rate 12/12/19 06:00 Blood Pressure 150/91 12/12/19 06:00 O2 Sat by Pulse Oximetry (%) 95 12/12/19 08:50 Constitutional: Yes: Well Nourished, No Distress, Calm Eyes: Yes: WNL, Conjunctiva Clear, EOM Intact HENT: Yes: WNL, Atraumatic, Normocephalic Neck: Yes: WNL, Supple, Trachea Midline Respiratory: Yes: WNL, Regular, CTA Bilaterally Gastrointestinal: Yes: WNL, Normal Bowel Sounds Renal/: Yes: WNL Cardiovascular: Yes: Pulse Irregular Musculoskeletal: Yes: WNL Extremities: Yes: WNL Integumentary: Yes: WNL Neurological: Yes: WNL, Alert, Oriented ...Motor Strength: WNL Psychiatric: Yes: WNL, Alert, Oriented - Other Data Labs, Other Data: CBC, BMP 12/11/19 06:17 12/11/19 06:17 Troponin, BNP 12/11/19 12/12/19 06:17 01:29 Troponin I < 0.02 < 0.02 B-Natriuretic Peptide 133.6 H Troponin, BNP 12/11/19 12/12/19 06:17 01:29 Troponin I < 0.02 < 0.02 B-Natriuretic Peptide 133.6 H Imaging - Results Chest X-ray: Image Reviewed (no i/e) EKG: Image Reviewed (sr apcs) Problem List - Problems (1) Shortness of breath Code(s): R06.02 - SHORTNESS OF BREATH (2) Atrial fibrillation with RVR Code(s): I48.91 - UNSPECIFIED ATRIAL FIBRILLATION (3) Cellulitis Code(s): L03.90 - CELLULITIS, UNSPECIFIED Qualifiers: Site of cellulitis: extremity Site of cellulitis of extremity: toe Laterality: right Qualified Code(s): L03.031 - Cellulitis of right toe (4) Fever Code(s): R50.9 - FEVER, UNSPECIFIED Qualifiers: Fever type: unspecified Qualified Code(s): R50.9 - Fever, unspecified (5) Nausea vomiting and diarrhea Code(s): R11.2 - NAUSEA WITH VOMITING, UNSPECIFIED; R19.7 - DIARRHEA, UNSPECIFIED (6) Panic attack Code(s): F41.0 - PANIC DISORDER [EPISODIC PAROXYSMAL ANXIETY] (7) Hypothyroid Code(s): E03.9 - HYPOTHYROIDISM, UNSPECIFIED (8) TIA (transient ischemic attack) Code(s): G45.9 - TRANSIENT CEREBRAL ISCHEMIC ATTACK, UNSPECIFIED (9) Nausea vomiting and diarrhea Code(s): R11.2 - NAUSEA WITH VOMITING, UNSPECIFIED; R19.7 - DIARRHEA, UNSPECIFIED (10) Persistent atrial fibrillation Code(s): I48.19 - OTHER PERSISTENT ATRIAL FIBRILLATION Assessment/Plan 69 F h/o HTN, HLD, hypothyroidism, Afib on AC, gout presents with episode of palpitations, SOB, anxiety and sweating which woke her up at night. EKG TNIs wnl Plan; cont cardiac monitoring and AC examinned in ICU cc time spent 70 min
[2019-12-12] MEDS: ALLOPURINOL 300 MG TABLET (FP) PO SCH (09:32)
[2019-12-12] MEDS: PANTOPRAZOLE 40 MG TABLET PO SCH (09:32)
[2019-12-12] MEDS: LOSARTAN POTASSIUM 50 MG TABLET (FP) PO SCH (09:33)
[2019-12-12] MEDS ORDERED: PT OWN MED DRAWER 7, Y5N ONE (10:39)
[2019-12-12] MEDS: METOPROLOL TARTRATE 25 MG TABLET (FP) PO SCH ×2 (11:12→21:47)
[2019-12-12] MEDS: CEFTRIAXONE 1 GM in DEXTROSE 5%-WATER - 100 ML IVPB SCH (11:50)
[2019-12-12] MEDS ORDERED: cefTRIAXone SODIUM 1 GM VIAL ONE ×2 (12:04→21:46)
[2019-12-12] MEDS ORDERED: DEXTROSE 5%-WATER - 50 ML IVPB ONE ×2 (12:04→21:46)
[2019-12-12] MEDS: CEFTRIAXONE 1 GM in DEXTROSE 5%-WATER - 50 ML IVPB SCH ×2 (12:10→21:49)
--- NOTE | 2019-12-12 15:33 | PN ---
Physical Exam: SUBJECTIVE: Patient seen and examined at bedside this morning, Patient admitted yesterday after experiencing intermittent chest pressure that started about a week ago. This morning, patient reports improvement of symptoms but still with some chest discomfort. Denies fevers, chills, headache, dizziness, SOB, palpitations, abdominal pain, diarrhea, or any new concerns noted. OBJECTIVE: Vital Signs Temperature 98.2 F 12/12/19 12:00 Pulse Rate 57 L 12/12/19 12:00 Respiratory Rate 14 12/12/19 12:00 Blood Pressure 157/93 12/12/19 12:00 O2 Sat by Pulse Oximetry (%) 95 12/12/19 08:50 GENERAL: The patient is awake, alert, and fully oriented, in no acute distress. HEAD: Normal with no signs of trauma. EYES: PERRLA, EOMI, sclera anicteric, conjunctiva clear. No ptosis. ENT: moist mucous membranes. NECK: supple. LUNGS: Breath sounds equal, clear to auscultation bilaterally HEART: Regular rate and rhythm, S1, S2 ABDOMEN: Soft, nontender, nondistended, normoactive bowel sounds EXTREMITIES: 2+ pulses, warm, well-perfused, no edema. NEUROLOGICAL: Cranial nerves II through XII grossly intact. Normal speech PSYCH: Normal mood, normal affect. SKIN: Warm, dry, normal turgor Laboratory Results - last 24 hr 12/11/19 12/11/19 12/12/19 06:17 14:45 01:29 Hemoglobin A1c % 5.9 Troponin I < 0.02 Triglycerides 271 H 203 H Cholesterol 148 158 Total LDL Cholesterol 62 74 HDL Cholesterol 35 L 41 TSH 2.31 Active Medications Generic Name Dose Route Start Last Admin Trade Name Adamaq PRN Reason Stop Dose Admin Allopurinol 300 mg 12/11/19 20:00 12/12/19 09:32 Zyloprim - PO 300 mg DAILY ALEKSANDRA Administration Atorvastatin Calcium 20 mg 12/11/19 22:00 12/11/19 22:08 Lipitor - PO 20 mg HS ALEKSANDRA Administration Ceftriaxone Sodium 1 gm/ 50 mls @ 100 mls/hr 12/12/19 11:45 12/12/19 12:10 Dextrose IVPB 12/18/19 19:15 100 mls/hr BID ALEKSANDRA Administration Levothyroxine Sodium 75 mcg 12/12/19 08:38 Synthroid - PO DAILY@0700 ALEKSANDRA Losartan Potassium 100 mg 12/12/19 10:00 12/12/19 09:33 Cozaar - PO 100 mg DAILY COUNT INCLUDES [facility] Administration Metoprolol Tartrate 75 mg 12/11/19 20:30 12/12/19 11:12 Lopressor - PO Not Given BID COUNT INCLUDES THE [facility] Pantoprazole Sodium 40 mg 12/12/19 10:00 12/12/19 09:32 Protonix - PO 40 mg DAILY COUNT [facility]CLUDES [facility] Administration Rivaroxaban 20 mg 12/12/19 18:00 Xarelto PO DAILY@1800 COUNT INCLUDES THE [facility] ASSESSMENT/PLAN: Patient is a 69 y/o F with hx of HTN, AFib on xarelto, CVA, [place] s/p stent, HLD, hypothyroidism, panic attacks and anxiety presenting with 1 week history of intermittent midsternal chest pressure and palpitations. #Chest pain -r/o ACS, EKG showing NSR, tele monitoring - sinus rhythm -Echo - (09/2019) - normal LV/RV, EF 55-60%, trace to mild AR, Mild MR and TR, normal RVSP -could have been caused by Afib with RVR that has resolved -Trop negative x2 -will continue Lopressor 75mg bid, On xarelto 20mg daily -Continue statin -Tele monitoring -Cardiology consulted. REcommendations appreciated. #UTI -will continue Ceftriaxone for now -Urine cultures pending #HTN -Continue Lopressor and Losartan 100mg daily #Atrial fibrillation -currently sinus, HR 55-65 -continue tele monitoring -Continue Lopressor 75mg bid -Continue Xarelto 20mg daily #Hypothyroidism -Repeat TSH wnl -Will resume home dose Synthroid 75mcg daily #HLD -Continue Lipitor 20mg HS #Gout -Continue Allopurinol 300mg daily #GERD -continue Protonix 40mg daily #FEN -Not on any standing fluids -Electrolytes wnl, routine bmp monitoring -Cholesterol, sodium controlled diet #Prophylaxis -Xarelto 20mg daily #Disposition -full code -tele monitoring Visit type - Emergency Visit Emergency Visit: Yes ED Registration Date: 12/11/19 Care time: The patient presented to the Emergency Department on the above date and was hospitalized for further evaluation of their emergent condition. - New Patient This patient is new to me today: Yes Date on this admission: 12/12/19 - Critical Care Critical Care patient: No ATTENDING PHYSICIAN STATEMENT I saw and evaluated the patient. I reviewed the resident's note and discussed the case with the resident. I agree with the resident's findings and plan as documented. SUBJECTIVE: OBJECTIVE: ASSESSMENT AND PLAN:
[2019-12-12] MEDS: RIVAROXABAN 20 MG TABLET PO SCH (17:13)
--- NOTE | 2019-12-12 19:42 | PN ---
Progress Note, Physician History of Present Illness: 69 F h/o HTN, HLD, hypothyroidism, Afib on AC, gout presents with episode of palpitations, SOB, anxiety and sweating which woke her up at night. Patient also endorses L sided chest discomfort which lasted about 10 mins in AM which prompted her to go to ED. Denies recent travel, denies fever/chill/N/V/D/cough, denies possible COVID exposure. Endorses significant snoring at night, EDS, nighttime awakenings often with a gasp of air or choking sensation and often wakes up with dry throat and GERD-symptoms. PMH stress treadmill MIBI multiple times, the latest in ?2015. ?Electrical cardioversion for ?SVT/AF at [facility] in ? 2009 (pt saw Dr. Cohen, salvage laborer and family friend, during that time). Ongoing medical problems Hypertension Hyperlipidemia [place] - 2007 Hyperthyroidism s/p radiation Rapid heart rate s/p cardioversion at [facility] ?PSVT Atrial Fibrillation Anxiety/depression Lower back surgery gout - Current Medication List Current Medications: Active Medications Allopurinol (Zyloprim -) 300 mg PO DAILY [facility] Last Admin: 12/12/19 09:32 Dose: 300 mg Documented by: Atorvastatin Calcium (Lipitor -) 20 mg PO HS [facility] Last Admin: 12/11/19 22:08 Dose: 20 mg Documented by: Ceftriaxone Sodium 1 gm/ (Dextrose) 50 mls @ 100 mls/hr IVPB BID [facility] Stop: 12/18/19 19:15 Last Admin: 12/12/19 12:10 Dose: 100 mls/hr Documented by: Levothyroxine Sodium (Synthroid -) 75 mcg PO DAILY@0700 [facility] Losartan Potassium (Cozaar -) 100 mg PO DAILY [facility] Last Admin: 12/12/19 09:33 Dose: 100 mg Documented by: Metoprolol Tartrate (Lopressor -) 75 mg PO BID [facility] Last Admin: 12/12/19 11:12 Dose: Not Given Documented by: Pantoprazole Sodium (Protonix -) 40 mg PO DAILY [facility] Last Admin: 12/12/19 09:32 Dose: 40 mg Documented by: Rivaroxaban (Xarelto) 20 mg PO DAILY@1800 [facility] Last Admin: 12/12/19 17:13 Dose: 20 mg Documented by: - Objective Vital Signs: Vital Signs Temperature 98.0 F 12/12/19 18:00 Pulse Rate 71 12/12/19 18:00 Respiratory Rate 16 12/12/19 18:00 Blood Pressure 115/79 12/12/19 18:00 O2 Sat by Pulse Oximetry (%) 95 12/12/19 08:50 Eyes: Yes: WNL, Conjunctiva Clear, EOM Intact HENT: Yes: WNL, Atraumatic, Normocephalic Neck: Yes: WNL, Supple, Trachea Midline Cardiovascular: Yes: WNL, Regular Rate and Rhythm Respiratory: Yes: WNL, Regular, CTA Bilaterally Gastrointestinal: Yes: WNL, Normal Bowel Sounds Genitourinary: Yes: WNL Musculoskeletal: Yes: WNL Extremities: Yes: WNL Edema: No Integumentary: Yes: WNL Neurological: Yes: WNL, Alert, Oriented ...Motor Strength: WNL Psychiatric: Yes: WNL Labs: CBC, BMP 12/11/19 06:17 12/11/19 06:17 Problem List - Problems (1) Shortness of breath Code(s): R06.02 - SHORTNESS OF BREATH (2) Atrial fibrillation with RVR Code(s): I48.91 - UNSPECIFIED ATRIAL FIBRILLATION (3) Cellulitis Code(s): L03.90 - CELLULITIS, UNSPECIFIED Qualifiers: Site of cellulitis: extremity Site of cellulitis of extremity: toe Laterality: right Qualified Code(s): L03.031 - Cellulitis of right toe (4) Fever Code(s): R50.9 - FEVER, UNSPECIFIED Qualifiers: Fever type: unspecified Qualified Code(s): R50.9 - Fever, unspecified (5) Nausea vomiting and diarrhea Code(s): R11.2 - NAUSEA WITH VOMITING, UNSPECIFIED; R19.7 - DIARRHEA, UNSPECIFIED (6) Panic attack Code(s): F41.0 - PANIC DISORDER [EPISODIC PAROXYSMAL ANXIETY] (7) Hypothyroid Code(s): E03.9 - HYPOTHYROIDISM, UNSPECIFIED (8) TIA (transient ischemic attack) Code(s): G45.9 - TRANSIENT CEREBRAL ISCHEMIC ATTACK, UNSPECIFIED (9) Nausea vomiting and diarrhea Code(s): R11.2 - NAUSEA WITH VOMITING, UNSPECIFIED; R19.7 - DIARRHEA, UNSPECIFIED (10) Persistent atrial fibrillation Code(s): I48.19 - OTHER PERSISTENT ATRIAL FIBRILLATION Assessment/Plan 69 F h/o HTN, HLD, hypothyroidism, Afib on AC, gout presents with episode of palpitations, SOB, anxiety and sweating which woke her up at night. EKG TNIs wnl Plan; cont cardiac monitoring and AC examinned in ICU cc time spent 36 min
[2019-12-12] MEDS: ATORVASTATIN CA 20 MG TABLET (FP) PO SCH (21:47)
[2019-12-13 06:28] LABS: BASO % 0.7 % (0-2.0); EOS % 4.4 % (0-4.5); HEMATOCRIT 39.4 % (32.4-45.2); HEMOGLOBIN 12.7 GM/dL (10.7-15.3); LYMPH % 42.9 % (8-40); MCH 29.8 pg (25.7-33.7); MCHC 32.1 g/dl (32.0-36.0); MEAN CELL VOLUME 92.7 fl (80-96); MEAN PLT VOLUME 8.4 fl (7.5-11.1); MONO % 5.2 % (3.8-10.2); NEUT % 46.8 % (42.8-82.8); PLATELET COUNT 197 K/MM3 (134-434); RBC 4.25 M/mm3 (3.60-5.2); RDW 14.4 % (11.6-15.6); WHITE BLOOD COUNT 5.7 K/mm3 (4.0-10.0)
[2019-12-13] MEDS: LEVOTHYROXINE NA 75 MCG TABLET (FP) PO SCH (06:31)
[2019-12-13 06:55] LABS: ALBUMIN 3.4 g/dl (3.4-5.0); BILIRUBIN,TOTAL 0.4 mg/dL (0.2-1); BLOOD UREA NITROGEN 19.2 mg/dL (7-18); CALCIUM 8.7 mg/dL (8.5-10.1); CREATININE 1.1 mg/dL (0.55-1.3); MAGNESIUM 1.6 mg/dL (1.8-2.4); POTASSIUM 3.9 mmol/L (3.5-5.1)
[2019-12-13] MEDS ORDERED: MAGNESIUM SULF 50% (8.12 MEQ/2 ML-1 GM VIAL) IVPB ONE (07:49)
--- NOTE | 2019-12-13 08:15 | PN ---
Progress Note, Physician Chief Complaint: Pt A&Ox3; c/o chronic "fullness, like cold water is in my throat"; no SOB; no chest pain. Occasional palpitations. History of Present Illness: 69 yo F h/o HTN, HLD, hypothyroidism, Afib on metoprolol and rivaroxaban, gout, anxiety, chronic left knee pain, now presents with episode of palpitations, SOB, anxiety and sweating which woke her up at night. Patient also endorses L sided chest discomfort which lasted about 10 mins in AM which prompted her to go to ED. Denies recent travel, denies fever/chill/N/V/D/cough, denies possible COVID exposure. Endorses significant snoring at night, EDS, nighttime awakenings often with a gasp of air or choking sensation and often wakes up with dry throat and GERD-symptoms. PMH stress treadmill MIBI multiple times, the latest in ?2015. AF ?Electrical cardioversion for ?SVT/AF at [facility] in ? 2009 (pt saw Dr. Cohen, cigarette lighter repairer and family friend, during that time). 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 Miller - Current Medication List Current Medications: Active Medications Allopurinol (Zyloprim -) 300 mg PO DAILY [facility] Last Admin: 12/12/19 09:32 Dose: 300 mg Documented by: Atorvastatin Calcium (Lipitor -) 20 mg PO HS [facility] Last Admin: 12/12/19 21:47 Dose: 20 mg Documented by: Ceftriaxone Sodium 1 gm/ (Dextrose) 50 mls @ 100 mls/hr IVPB BID [facility] Stop: 12/18/19 19:15 Last Admin: 12/12/19 21:49 Dose: 100 mls/hr Documented by: Levothyroxine Sodium (Synthroid -) 75 mcg PO DAILY@0700 [facility] Last Admin: 12/13/19 06:31 Dose: 75 mcg Documented by: Losartan Potassium (Cozaar -) 100 mg PO DAILY [facility] Last Admin: 12/12/19 09:33 Dose: 100 mg Documented by: Metoprolol Tartrate (Lopressor -) 75 mg PO BID [facility] Last Admin: 12/12/19 21:47 Dose: 75 mg Documented by: Pantoprazole Sodium (Protonix -) 40 mg PO DAILY [facility] Last Admin: 12/12/19 09:32 Dose: 40 mg Documented by: Rivaroxaban (Xarelto) 20 mg PO DAILY@1800 [facility] Last Admin: 12/12/19 17:13 Dose: 20 mg Documented by: - Objective Vital Signs: Vital Signs Temperature 98 F 12/13/19 06:00 Pulse Rate 55 L 12/13/19 06:00 Respiratory Rate 16 12/13/19 06:00 Blood Pressure 150/85 12/13/19 06:00 O2 Sat by Pulse Oximetry (%) 95 12/12/19 20:37 Constitutional: Yes: Obese Eyes: Yes: WNL HENT: Yes: WNL Neck: Yes: WNL Cardiovascular: Yes: S1, S2 Respiratory: Yes: WNL Gastrointestinal: Yes: Soft, Abdomen, Obese ...Rectal Exam: Yes: Deferred Genitourinary: No: Anuria Breast(s): Yes: WNL Musculoskeletal: Yes: Joint Stiffness, Muscle Pain Extremities: Yes: Cool, Other (decreased ROM knees L>R) Edema: No Peripheral Pulses WNL: Yes Integumentary: Yes: WNL Neurological: Yes: WNL ...Motor Strength: WNL Psychiatric: Yes: WNL Labs: CBC, BMP 12/13/19 05:50 12/13/19 05:50 Abnormal Lab Results 12/14/19 12/14/19 05:35 05:35 Lymphocytes % 44.3 H Eosinophils % 4.8 H Anion Gap 7 L - ....Imaging Chest X-ray: Image Reviewed EKG: Image Reviewed Other: Image Reviewed (NSR; occasional APCs and PVCs) Assessment/Plan 69 yo woman with PMHx HTN, HLD, hypothyroidism, Afib on metoprolol and rivaroxaban, s/p ?electrical cardioversion for ?PSVT/AF in 2009 at [facility]; s/p [place] 2007, obesity, likely sleep apnea, gout, now presents with episode of palpitations, SOB, anxiety and sweating which woke her up at night. EKG: NSR, with occasional PVCs and APCs. TNIs wnl Plan; Change from metoprolol tartrate to 150 mg succinate daily. Continue rivaroxaban. Continue losartan. Serial BP and HR. Obtain record of last stress MIBI (done ? 2018). Sleep study. LDL controlled with statin; triglycerides remain elevated: for dietary consult. TSH now ?WNL; on Synthroid Addendum: Stress treadmill test 12/2018: no myocardial ischemia or arrhythmias; fair exercise functional capacity (walked 6:07 minutes using Marshall protocol; 7.0 METS); asymptomatic throughout the examination.
[2019-12-13] MEDS ORDERED: DEXTROSE 5%-WATER - 50 ML IVPB ONE ×2 (09:21→21:45)
[2019-12-13] MEDS ORDERED: cefTRIAXone SODIUM 1 GM VIAL ONE ×2 (09:21→21:45)
[2019-12-13] MEDS: CEFTRIAXONE 1 GM in DEXTROSE 5%-WATER - 50 ML IVPB SCH ×2 (09:23→21:59)
[2019-12-13] MEDS: ALLOPURINOL 300 MG TABLET (FP) PO SCH (09:24)
[2019-12-13] MEDS: PANTOPRAZOLE 40 MG TABLET PO SCH (09:24)
[2019-12-13] MEDS: METOPROLOL SUCCINATE 100 MG, METOPROLOL SUCCINATE 50 MG PO SCH (09:24)
[2019-12-13] MEDS: LOSARTAN POTASSIUM 50 MG TABLET (FP) PO SCH (09:25)
--- NOTE | 2019-12-13 15:53 | PN ---
Physical Exam: SUBJECTIVE: Patient seen and examined at bedside this morning. No acute events overnight. OBJECTIVE: Vital Signs Temperature 97.8 F 12/13/19 14:00 Pulse Rate 54 L 12/13/19 14:00 Respiratory Rate 18 12/13/19 14:00 Blood Pressure 156/88 12/13/19 14:00 O2 Sat by Pulse Oximetry (%) 95 12/13/19 09:00 GENERAL: The patient is awake, alert, and fully oriented, in no acute distress. HEAD: Normal with no signs of trauma. EYES: PERRLA, EOMI, sclera anicteric, conjunctiva clear. No ptosis. ENT: moist mucous membranes. NECK: supple. LUNGS: Breath sounds equal, clear to auscultation bilaterally HEART: Regular rate and rhythm, S1, S2 ABDOMEN: Soft, nontender, nondistended, normoactive bowel sounds EXTREMITIES: 2+ pulses, warm, well-perfused, no edema. NEUROLOGICAL: Cranial nerves II through XII grossly intact. Normal speech PSYCH: Normal mood, normal affect. SKIN: Warm, dry, normal turgor Laboratory Results - last 24 hr 12/11/19 12/13/19 12/13/19 12:25 05:50 05:50 WBC 5.7 RBC 4.25 Hgb 12.7 Hct 39.4 MCV 92.7 MCH 29.8 MCHC 32.1 RDW 14.4 Plt Count 197 MPV 8.4 Absolute Neuts (auto) 2.7 Neutrophils % 46.8 Lymphocytes % 42.9 H Monocytes % 5.2 Eosinophils % 4.4 Basophils % 0.7 Nucleated RBC % 0 Sodium 140 Potassium 3.9 Chloride 107 Carbon Dioxide 26 Anion Gap 7 L BUN 19.2 H Creatinine 1.1 Est GFR (CKD-EPI)AfAm 58.50 Est GFR (CKD-EPI)NonAf 50.47 Random Glucose 99 Calcium 8.7 Magnesium 1.6 L Total Bilirubin 0.4 AST 13 L ALT 14 Alkaline Phosphatase 83 Total Protein 7.0 Albumin 3.4 COVID-19 (ADARSH) Not detected Active Medications Generic Name Dose Route Start Last Admin Trade Name Freq PRN Reason Stop Dose Admin Allopurinol 300 mg 12/11/19 20:00 12/13/19 09:24 Zyloprim - PO 300 mg DAILY ALEKSANDRA Administration Atorvastatin Calcium 20 mg 12/11/19 22:00 12/12/19 21:47 Lipitor - PO 20 mg HS ALEKSANDRA Administration Ceftriaxone Sodium 1 gm/ 50 mls @ 100 mls/hr 12/12/19 11:45 12/13/19 09:23 Dextrose IVPB 12/18/19 19:15 100 mls/hr BID ALEKSANDRA Administration Levothyroxine Sodium 75 mcg 12/12/19 08:38 12/13/19 06:31 Synthroid - PO 75 mcg DAILY@0700 ALEKSANDRA Administration Losartan Potassium 100 mg 12/12/19 10:00 12/13/19 09:25 Cozaar - PO 100 mg DAILY ALEKSANDRA Administration Metoprolol Succinate 100 mg/ 150 mg 12/13/19 10:00 12/13/19 09:24 Metoprolol Succinate 50 mg PO 150 mg DAILY ALEKSANDRA Administration Pantoprazole Sodium 40 mg 12/12/19 10:00 12/13/19 09:24 Protonix - PO 40 mg DAILY ALEKSANDRA Administration Rivaroxaban 20 mg 12/12/19 18:00 12/12/19 17:13 Xarelto PO 20 mg DAILY@1800 AELKSANDRA Administration ASSESSMENT/PLAN: Patient is a 69 y/o F with hx of HTN, AFib on xarelto, CVA, [place] s/p stent, HLD, hypothyroidism, panic attacks and anxiety presenting with 1 week history of intermittent midsternal chest pressure and palpitations. #Chest pain -r/o ACS, EKG showing NSR, tele monitoring - sinus rhythm -Echo - (09/2019) - normal LV/RV, EF 55-60%, trace to mild AR, Mild MR and TR, normal RVSP -could have been caused by Afib with RVR that has resolved -Trop negative x2 -Toprol XL 150mg daily, On xarelto 20mg daily -Continue statin -Tele monitoring -Cardiology consulted. REcommendations appreciated. #UTI -will continue Ceftriaxone for now -Urine cultures pending #HTN -Continue Lopressor and Losartan 100mg daily #Atrial fibrillation -currently sinus, HR 55-65 -continue tele monitoring -Continue Toprol XL 150mg daily -Continue Xarelto 20mg daily #Hypothyroidism -Repeat TSH wnl -Will resume home dose Synthroid 75mcg daily #HLD -Continue Lipitor 20mg HS #Gout -Continue Allopurinol 300mg daily #GERD -continue Protonix 40mg daily #FEN -Not on any standing fluids -Electrolytes wnl, routine bmp monitoring -Cholesterol, sodium controlled diet #Prophylaxis -Xarelto 20mg daily #Disposition -full code -tele monitoring -for sleep study tonight and will review with Dr. Miller tomorrow morning results of stress test to see if patient would need one. Will keep patient NPO after midnight just in case. Visit type - Emergency Visit Emergency Visit: Yes ED Registration Date: 12/11/19 Care time: The patient presented to the Emergency Department on the above date and was hospitalized for further evaluation of their emergent condition. - New Patient This patient is new to me today: No - Critical Care Critical Care patient: No ATTENDING PHYSICIAN STATEMENT I saw and evaluated the patient. I reviewed the resident's note and discussed the case with the resident. I agree with the resident's findings and plan as documented. SUBJECTIVE: OBJECTIVE: ASSESSMENT AND PLAN:
[2019-12-13] MEDS: RIVAROXABAN 20 MG TABLET PO SCH (17:10)
[2019-12-13] MEDS: ATORVASTATIN CA 20 MG TABLET (FP) PO SCH (21:59)
[2019-12-14 06:05] LABS: BASO % 0.8 % (0-2.0); EOS % 4.8 % (0-4.5); HEMATOCRIT 41.6 % (32.4-45.2); HEMOGLOBIN 13.3 GM/dL (10.7-15.3); LYMPH % 44.3 % (8-40); MCH 29.8 pg (25.7-33.7); MEAN CELL VOLUME 93.3 fl (80-96); MEAN PLT VOLUME 8.3 fl (7.5-11.1); MONO % 6.2 % (3.8-10.2); NEUT % 43.9 % (42.8-82.8); PLATELET COUNT 202 K/MM3 (134-434); RBC 4.46 M/mm3 (3.60-5.2); RDW 14.6 % (11.6-15.6); WHITE BLOOD COUNT 5.9 K/mm3 (4.0-10.0)
[2019-12-14] MEDS: LEVOTHYROXINE NA 75 MCG TABLET (FP) PO SCH (06:27)
[2019-12-14 06:53] LABS: ALBUMIN 3.5 g/dl (3.4-5.0); BILIRUBIN,TOTAL 0.3 mg/dL (0.2-1); BLOOD UREA NITROGEN 15.8 mg/dL (7-18); CALCIUM 8.8 mg/dL (8.5-10.1); CREATININE 1.1 mg/dL (0.55-1.3); MAGNESIUM 2.2 mg/dL (1.8-2.4); PHOSPHOROUS 3.6 mg/dL (2.5-4.9); TOT PROT 7.2 g/dl (6.4-8.2)
--- NOTE | 2019-12-14 08:21 | PN ---
Physical Exam: SUBJECTIVE: Patient seen and examined OBJECTIVE: Vital Signs Period Temp Pulse Resp BP Sys/Roca Pulse Ox Last 24 Hr 97.3 F-98.3 F 53-58 16-18 131-167/83-95 95-96 GENERAL: The patient is awake, alert, and fully oriented, in no acute distress. HEAD: Normal with no signs of trauma. EYES: PERRL, extraocular movements intact, sclera anicteric, conjunctiva clear. No ptosis. ENT: Ears normal, nares patent, oropharynx clear without exudates, moist mucous membranes. NECK: Trachea midline, full range of motion, supple. LUNGS: Breath sounds equal, clear to auscultation bilaterally, no wheezes, no crackles, no accessory muscle use. HEART: Regular rate and rhythm, S1, S2 without murmur, rub or gallop. ABDOMEN: Soft, nontender, nondistended, normoactive bowel sounds, no guarding, no rebound, no hepatosplenomegaly, no masses. EXTREMITIES: 2+ pulses, warm, well-perfused, no edema. NEUROLOGICAL: Cranial nerves II through XII grossly intact. Normal speech, gait not observed. PSYCH: Normal mood, normal affect. SKIN: Warm, dry, normal turgor, no rashes or lesions noted Laboratory Results - last 24 hr 12/11/19 12/14/19 12/14/19 13:14 05:35 05:35 WBC 5.9 RBC 4.46 Hgb 13.3 Hct 41.6 MCV 93.3 MCH 29.8 MCHC 32.0 RDW 14.6 Plt Count 202 MPV 8.3 Absolute Neuts (auto) 2.6 Neutrophils % 43.9 Lymphocytes % 44.3 H Monocytes % 6.2 Eosinophils % 4.8 H Basophils % 0.8 Nucleated RBC % 0 Sodium 140 Potassium 4.0 Chloride 107 Carbon Dioxide 26 Anion Gap 7 L BUN 15.8 Creatinine 1.1 Est GFR (CKD-EPI)AfAm 58.50 Est GFR (CKD-EPI)NonAf 50.47 Random Glucose 94 Calcium 8.8 Phosphorus 3.6 Magnesium 2.2 Total Bilirubin 0.3 AST 18 ALT 17 Alkaline Phosphatase 84 Total Protein 7.2 Albumin 3.5 Free T4 [place] 1.40 Active Medications Generic Name Dose Route Start Last Admin Trade Name Freq PRN Reason Stop Dose Admin Allopurinol 300 mg 12/11/19 20:00 12/13/19 09:24 Zyloprim - PO 300 mg DAILY ALEKSANDRA Administration Atorvastatin Calcium 20 mg 12/11/19 22:00 12/13/19 21:59 Lipitor - PO 20 mg HS ALEKSANDRA Administration Ceftriaxone Sodium 1 gm/ 50 mls @ 100 mls/hr 12/12/19 11:45 12/13/19 21:59 Dextrose IVPB 12/18/19 19:15 100 mls/hr BID ALEKSANDRA Administration Levothyroxine Sodium 75 mcg 12/12/19 08:38 12/14/19 06:27 Synthroid - PO Not Given DAILY@0700 ALEKSANDRA Losartan Potassium 100 mg 12/12/19 10:00 12/13/19 09:25 Cozaar - PO 100 mg DAILY ALEKSANDRA Administration Metoprolol Succinate 100 mg/ 150 mg 12/13/19 10:00 12/13/19 09:24 Metoprolol Succinate 50 mg PO 150 mg DAILY ALEKSANDRA Administration Pantoprazole Sodium 40 mg 12/12/19 10:00 12/13/19 09:24 Protonix - PO 40 mg DAILY ALEKSANDRA Administration Rivaroxaban 20 mg 12/12/19 18:00 12/13/19 17:10 Xarelto PO 20 mg DAILY@1800 ALEKSANDRA Administration ASSESSMENT/PLAN: ATTENDING PHYSICIAN STATEMENT I saw and evaluated the patient. I reviewed the resident's note and discussed the case with the resident. I agree with the resident's findings and plan as documented. SUBJECTIVE: OBJECTIVE: ASSESSMENT AND PLAN:
[2019-12-14 09:08] VITALS: BP 136/83; PULSE 56
[2019-12-14] MEDS ORDERED: cefTRIAXone SODIUM 1 GM VIAL ONE (09:20)
[2019-12-14] MEDS ORDERED: DEXTROSE 5%-WATER - 50 ML IVPB ONE (09:21)
[2019-12-14] MEDS: METOPROLOL SUCCINATE 100 MG, METOPROLOL SUCCINATE 50 MG PO SCH (09:22)
[2019-12-14] MEDS: LOSARTAN POTASSIUM 50 MG TABLET (FP) PO SCH (09:22)
[2019-12-14] MEDS: PANTOPRAZOLE 40 MG TABLET PO SCH (09:22)
[2019-12-14] MEDS: ALLOPURINOL 300 MG TABLET (FP) PO SCH (09:22)
[2019-12-14] MEDS: CEFTRIAXONE 1 GM in DEXTROSE 5%-WATER - 50 ML IVPB SCH (09:23)
[2019-12-14 09:53] VITALS: TEMP 98.2
--- NOTE | 2019-12-14 10:48 | EKG ---
Test Reason : Blood Pressure : / mmHG Vent. Rate : 050 BPM Atrial Rate : 050 BPM P-R Int : 170 ms QRS Dur : 082 ms QT Int : 436 ms P-R-T Axes : 049 001 023 degrees QTc Int : 397 ms SINUS BRADYCARDIA LEFT ATRIAL ENLARGEMENT OTHERWISE NORMAL ECG Confirmed by MD DAMIÁN, LUIS MANUEL ([id number]) on 12/14/2019 10:48:10 AM Referred By: BANG LIGHT DR Confirmed By:LUIS MANUEL STEEL MD
--- NOTE | 2019-12-14 12:23 | PN ---
Progress Note, Physician History of Present Illness: 69 F h/o HTN, HLD, hypothyroidism, Afib on AC, gout presents with episode of palpitations, SOB, anxiety and sweating which woke her up at night. Patient also endorses L sided chest discomfort which lasted about 10 mins in AM which prompted her to go to ED. Denies recent travel, denies fever/chill/N/V/D/cough, denies possible COVID exposure. Endorses significant snoring at night, EDS, nighttime awakenings often with a gasp of air or choking sensation and often wakes up with dry throat and GERD-symptoms. PMH stress treadmill MIBI multiple times, the latest in ?2015. ?Electrical cardioversion for ?SVT/AF at [facility] in ? 2009 (pt [address] Dr. Cohen, magnetic prospector and family friend, during that time). Ongoing medical problems Hypertension Hyperlipidemia [place] - 2007 Hyperthyroidism s/p radiation Rapid heart rate s/p cardioversion at [facility] ?PSVT Atrial Fibrillation Anxiety/depression Lower back surgery gout - Current Medication List Current Medications: Active Medications Allopurinol (Zyloprim -) 300 mg PO DAILY [facility] Last Admin: 12/14/19 09:22 Dose: 300 mg Documented by: Atorvastatin Calcium (Lipitor -) 20 mg PO HS [facility] Last Admin: 12/13/19 21:59 Dose: 20 mg Documented by: Ceftriaxone Sodium 1 gm/ (Dextrose) 50 mls @ 100 mls/hr IVPB BID [facility] Stop: 12/18/19 19:15 Last Admin: 12/14/19 09:23 Dose: 100 mls/hr Documented by: Levothyroxine Sodium (Synthroid -) 75 mcg PO DAILY@0700 [facility] Last Admin: 12/14/19 06:27 Dose: Not Given Documented by: Losartan Potassium (Cozaar -) 100 mg PO DAILY [facility] Last Admin: 12/14/19 09:22 Dose: 100 mg Documented by: Metoprolol Succinate 100 mg/ (Metoprolol Succinate 50 mg) 150 mg PO DAILY [facility] Last Admin: 12/14/19 09:22 Dose: 150 mg Documented by: Pantoprazole Sodium (Protonix -) 40 mg PO DAILY [facility] Last Admin: 12/14/19 09:22 Dose: 40 mg Documented by: Rivaroxaban (Xarelto) 20 mg PO DAILY@1800 [facility] Last Admin: 12/13/19 17:10 Dose: 20 mg Documented by: - Objective Vital Signs: Vital Signs Temperature 98.2 F 12/14/19 10:00 Pulse Rate 56 L 12/14/19 10:00 Respiratory Rate 17 12/14/19 10:00 Blood Pressure 136/83 12/14/19 10:00 O2 Sat by Pulse Oximetry (%) 95 12/14/19 09:00 Eyes: Yes: WNL, Conjunctiva Clear, EOM Intact HENT: Yes: WNL, Atraumatic, Normocephalic Neck: Yes: WNL, Supple, Trachea Midline Cardiovascular: Yes: WNL, Regular Rate and Rhythm Respiratory: Yes: WNL, Regular, CTA Bilaterally Gastrointestinal: Yes: WNL, Normal Bowel Sounds Genitourinary: Yes: WNL Musculoskeletal: Yes: WNL Extremities: Yes: WNL Edema: No Integumentary: Yes: WNL Neurological: Yes: WNL, Alert, Oriented ...Motor Strength: WNL Psychiatric: Yes: WNL Labs: CBC, BMP 12/14/19 05:35 12/14/19 05:35 Problem List - Problems (1) Shortness of breath Code(s): R06.02 - SHORTNESS OF BREATH (2) Atrial fibrillation with RVR Code(s): I48.91 - UNSPECIFIED ATRIAL FIBRILLATION (3) Cellulitis Code(s): L03.90 - CELLULITIS, UNSPECIFIED Qualifiers: Site of cellulitis: extremity Site of cellulitis of extremity: toe Laterality: right Qualified Code(s): L03.031 - Cellulitis of right toe (4) Fever Code(s): R50.9 - FEVER, UNSPECIFIED Qualifiers: Fever type: unspecified Qualified Code(s): R50.9 - Fever, unspecified (5) Nausea vomiting and diarrhea Code(s): R11.2 - NAUSEA WITH VOMITING, UNSPECIFIED; R19.7 - DIARRHEA, UNSPECIFIED (6) Panic attack Code(s): F41.0 - PANIC DISORDER [EPISODIC PAROXYSMAL ANXIETY] (7) Hypothyroid Code(s): E03.9 - HYPOTHYROIDISM, UNSPECIFIED (8) TIA (transient ischemic attack) Code(s): G45.9 - TRANSIENT CEREBRAL ISCHEMIC ATTACK, UNSPECIFIED (9) Nausea vomiting and diarrhea Code(s): R11.2 - NAUSEA WITH VOMITING, UNSPECIFIED; R19.7 - DIARRHEA, UNSPECIFIED (10) Persistent atrial fibrillation Code(s): I48.19 - OTHER PERSISTENT ATRIAL FIBRILLATION Assessment/Plan 69 yo woman with PMHx HTN, HLD, hypothyroidism, Afib on metoprolol and rivaroxaban, s/p ?electrical cardioversion for ?PSVT/AF in 2009 at [facility]; s/p [place] 2007, obesity, gout, now presents with episode of palpitations, SOB, anxiety and sweating which woke her up at night. EKG: NSR, with occasional PVCs and APCs. TNIs wnl Plan; Change from metoprolol tartrate to 150 mg succinate daily. Continue rivaroxaban. Continue losartan. Serial BP and HR. Obtain record of last stress MIBI (done ? 2018). Sleep study. LDL controlled with statin; triglycerides remain elevated: for dietary consult. TSH now ?WNL; on Synthroid Stress treadmill test 12/2018: no myocardial ischemia or arrhythmias; fair exercise functional capacity (walked 6::07 minutes using Marshall protocol; 7.0 METS); asymptomatic throughout the examination.
--- NOTE | 2019-12-14 12:50 | PN ---
Teaching Attending Note Name of Resident: Vaishali Lazaro ATTENDING PHYSICIAN STATEMENT I saw and evaluated the patient. I reviewed the resident's note and discussed the case with the resident. I agree with the resident's findings and plan as documented. SUBJECTIVE: Patient seen and examined at bedside, awaiting sleep screen/cardiology evaluation. VSS. Denies complaints. OBJECTIVE: GENERAL: Awake, alert, and fully oriented, in no acute distress, obese HEENT NC/aT, EOMI, no JVD, MAllampati 4, wide neck circumference LUNGS: Breath sounds equal, clear to auscultation bilaterally. No wheezes, and no crackles. No accessory muscle use. HEART: Irregularly irregular, normal rate ABDOMEN: obese, Soft, nontender, normoactive bowel sounds, no guarding, no rebound, no masses. No hepatomegaly or splenomegaly. MUSCULOSKELETAL: Normal range of motion at all joints. No bony deformities or tenderness. No CVA tenderness. UPPER EXTREMITIES: 2+ pulses, warm, well-perfused. No cyanosis. No clubbing. No peripheral edema. LOWER EXTREMITIES: 2+ pulses, warm, well-perfused. No calf tenderness. No peripheral edema. NEUROLOGICAL: Cranial nerves II-XII intact. Normal speech. Normal gait. PSYCHIATRIC: Cooperative. Good eye contact. Appropriate mood and affect. SKIN: Warm, dry, normal turgor, no rashes or lesions noted, normal capillary refill. Vital Signs - 24 hr 12/13/19 12/13/19 12/13/19 14:00 18:00 21:33 Temperature 97.8 F 97.3 F L Pulse Rate 54 L 54 L Respiratory 18 18 Rate Blood Pressure 156/88 131/88 O2 Sat by Pulse 95 Oximetry (%) 12/13/19 12/14/19 12/14/19 21:59 04:29 06:31 Temperature 98.3 F Pulse Rate 58 L 53 L 54 L Respiratory 17 18 17 Rate Blood Pressure 156/95 153/84 149/95 O2 Sat by Pulse 95 96 95 Oximetry (%) 12/14/19 12/14/19 12/14/19 08:00 09:00 10:00 Temperature 98.2 F Pulse Rate 56 L 56 L Respiratory 17 17 17 Rate Blood Pressure 136/83 136/83 O2 Sat by Pulse 95 Oximetry (%) Microbiology 12/11/19 23:15 Urine - Urine Clean Catch Urine Culture - Final NO GROWTH OBTAINED Laboratory Results - last 24 hr 12/11/19 12/14/19 12/14/19 13:14 05:35 05:35 WBC 5.9 RBC 4.46 Hgb 13.3 Hct 41.6 MCV 93.3 MCH 29.8 MCHC 32.0 RDW 14.6 Plt Count 202 MPV 8.3 Absolute Neuts (auto) 2.6 Neutrophils % 43.9 Lymphocytes % 44.3 H Monocytes % 6.2 Eosinophils % 4.8 H Basophils % 0.8 Nucleated RBC % 0 Sodium 140 Potassium 4.0 Chloride 107 Carbon Dioxide 26 Anion Gap 7 L BUN 15.8 Creatinine 1.1 Est GFR (CKD-EPI)AfAm 58.50 Est GFR (CKD-EPI)NonAf 50.47 Random Glucose 94 Calcium 8.8 Phosphorus 3.6 Magnesium 2.2 Total Bilirubin 0.3 AST 18 ALT 17 Alkaline Phosphatase 84 Total Protein 7.2 Albumin 3.5 Free T4 [place] 1.40 Home Medications Medication Instructions Recorded Allopurinol 300 mg PO DAILY 08/18/19 Atorvastatin Ca [Lipitor] 20 mg PO HS 08/18/19 Levothyroxine [Synthroid -] 75 mcg PO DAILY 08/18/19 Rivaroxaban [Xarelto -] 20 mg PO DAILY 08/18/19 Levothyroxine [Synthroid -] 75 mcg PO DAILY@0700 tablet 12/12/19 Olmesartan Medoxomil [Benicar -] 40 mg PO DAILY 12/12/19 Omeprazole 40 mg PO DAILY 12/12/19 Metoprolol Succinate [Toprol XL -] 150 mg PO DAILY #30 tab.sr.24h 12/13/19 Cefpodoxime Proxetil [Vantin -] 200 mg PO Q12H #4 tablet 12/14/19 Current Medications Generic Name Dose Route Start Last Admin Trade Name Freq PRN Reason Stop Dose Admin Allopurinol 300 mg 12/11/19 20:00 12/14/19 09:22 Zyloprim - PO 300 mg DAILY ALEKSANDRA Administration Atorvastatin Calcium 20 mg 12/11/19 22:00 12/13/19 21:59 Lipitor - PO 20 mg HS ALEKSANDRA Administration Ceftriaxone Sodium 1 gm/ 50 mls @ 100 mls/hr 12/12/19 11:45 12/14/19 09:23 Dextrose IVPB 12/18/19 19:15 100 mls/hr BID ALEKSANDRA Administration Levothyroxine Sodium 75 mcg 12/12/19 08:38 12/14/19 06:27 Synthroid - PO Not Given DAILY@0700 ALEKSANDRA Losartan Potassium 100 mg 12/12/19 10:00 12/14/19 09:22 Cozaar - PO 100 mg DAILY ALEKSANDRA Administration Metoprolol Succinate 100 mg/ 150 mg 12/13/19 10:00 12/14/19 09:22 Metoprolol Succinate 50 mg PO 150 mg DAILY ALEKSADNRA Administration Pantoprazole Sodium 40 mg 12/12/19 10:00 12/14/19 09:22 Protonix - PO 40 mg DAILY ALEKSANDRA Administration Rivaroxaban 20 mg 12/12/19 18:00 12/13/19 17:10 Xarelto PO 20 mg DAILY@1800 ALEKSANDRA Administration ASSESSMENT AND PLAN: 69 F Acute episode of SOB/?MIKAL exacerbation/apneic event Afib on AC HTN urgency UTI HLD Obesity Snoring Excessive daytime sleepiness Hypothyroidism Gout Plan: DC abx Stress test last year unremarkable Sleep screen overnight to screen for MIKAL (high STOP BANG) Cont. BB/AC/Statin Cont. Synthroid Cardiology evaluation DVT ppx: Xarelto
--- NOTE | 2019-12-14 12:56 | PN ---
Teaching Attending Note Name of Resident: Vaishali Lazaro ATTENDING PHYSICIAN STATEMENT I saw and evaluated the patient. I reviewed the resident's note and discussed the case with the resident. I agree with the resident's findings and plan as documented. SUBJECTIVE: Patient seen and examined at bedside, sleep screen with moderate MIKAL, will need outpatient follow up for official NPSG and CPAP. Stable for DC no further cardiology intervention, DC home. OBJECTIVE: GENERAL: Awake, alert, and fully oriented, in no acute distress, obese HEENT NC/aT, EOMI, no JVD, MAllampati 4, wide neck circumference LUNGS: Breath sounds equal, clear to auscultation bilaterally. No wheezes, and no crackles. No accessory muscle use. HEART: Irregularly irregular, normal rate ABDOMEN: obese, Soft, nontender, normoactive bowel sounds, no guarding, no rebound, no masses. No hepatomegaly or splenomegaly. MUSCULOSKELETAL: Normal range of motion at all joints. No bony deformities or tenderness. No CVA tenderness. UPPER EXTREMITIES: 2+ pulses, warm, well-perfused. No cyanosis. No clubbing. No peripheral edema. LOWER EXTREMITIES: 2+ pulses, warm, well-perfused. No calf tenderness. No peripheral edema. NEUROLOGICAL: Cranial nerves II-XII intact. Normal speech. Normal gait. PSYCHIATRIC: Cooperative. Good eye contact. Appropriate mood and affect. SKIN: Warm, dry, normal turgor, no rashes or lesions noted, normal capillary refill. Vital Signs - 24 hr 12/13/19 12/13/19 12/13/19 14:00 18:00 21:33 Temperature 97.8 F 97.3 F L Pulse Rate 54 L 54 L Respiratory 18 18 Rate Blood Pressure 156/88 131/88 O2 Sat by Pulse 95 Oximetry (%) 12/13/19 12/14/19 12/14/19 21:59 04:29 06:31 Temperature 98.3 F Pulse Rate 58 L 53 L 54 L Respiratory 17 18 17 Rate Blood Pressure 156/95 153/84 149/95 O2 Sat by Pulse 95 96 95 Oximetry (%) 12/14/19 12/14/19 12/14/19 08:00 09:00 10:00 Temperature 98.2 F Pulse Rate 56 L 56 L Respiratory 17 17 17 Rate Blood Pressure 136/83 136/83 O2 Sat by Pulse 95 Oximetry (%) [facility] 12/11/19 23:15 Urine - Urine Clean Catch Urine Culture - Final NO GROWTH OBTAINED Laboratory Results - last 24 hr 12/11/19 12/14/19 12/14/19 13:14 05:35 05:35 WBC 5.9 RBC 4.46 Hgb 13.3 Hct 41.6 MCV 93.3 MCH 29.8 MCHC 32.0 RDW 14.6 Plt Count 202 MPV 8.3 Absolute Neuts (auto) 2.6 Neutrophils % 43.9 Lymphocytes % 44.3 H Monocytes % 6.2 Eosinophils % 4.8 H Basophils % 0.8 Nucleated RBC % 0 Sodium 140 Potassium 4.0 Chloride 107 Carbon Dioxide 26 Anion Gap 7 L BUN 15.8 Creatinine 1.1 Est GFR (CKD-EPI)AfAm 58.50 Est GFR (CKD-EPI)NonAf 50.47 Random Glucose 94 Calcium 8.8 Phosphorus 3.6 Magnesium 2.2 Total Bilirubin 0.3 AST 18 ALT 17 Alkaline Phosphatase 84 Total Protein 7.2 Albumin 3.5 Free T4 1.40 Home Medications Medication Instructions Recorded Allopurinol 300 mg PO DAILY 08/18/19 Atorvastatin Ca [Lipitor] 20 mg PO HS 08/18/19 Levothyroxine [Synthroid -] 75 mcg PO DAILY 08/18/19 Rivaroxaban [Xarelto -] 20 mg PO DAILY 08/18/19 Levothyroxine [Synthroid -] 75 mcg PO DAILY@0700 tablet 12/12/19 Olmesartan Medoxomil [Benicar -] 40 mg PO DAILY 12/12/19 Omeprazole 40 mg PO DAILY 12/12/19 Metoprolol Succinate [Toprol XL -] 150 mg PO DAILY #30 tab.sr.24h 12/13/19 Cefpodoxime Proxetil [Vantin -] 200 mg PO Q12H #4 tablet 12/14/19 Current Medications Generic Name Dose Route Start Last Admin Trade Name Freq PRN Reason Stop Dose Admin Allopurinol 300 mg 12/11/19 20:00 12/14/19 09:22 Zyloprim - PO 300 mg DAILY ALEKSANDRA Administration Atorvastatin Calcium 20 mg 12/11/19 22:00 12/13/19 21:59 Lipitor - PO 20 mg HS ALEKSANDRA Administration Ceftriaxone Sodium 1 gm/ 50 mls @ 100 mls/hr 12/12/19 11:45 12/14/19 09:23 Dextrose IVPB 12/18/19 19:15 100 mls/hr BID ALEKSANDRA Administration Levothyroxine Sodium 75 mcg 12/12/19 08:38 12/14/19 06:27 Synthroid - PO Not Given DAILY@0700 ALEKSANDRA Losartan Potassium 100 mg 12/12/19 10:00 12/14/19 09:22 Cozaar - PO 100 mg DAILY ALEKSANDRA Administration Metoprolol Succinate 100 mg/ 150 mg 12/13/19 10:00 12/14/19 09:22 Metoprolol Succinate 50 mg PO 150 mg DAILY ALEKSANDRA Administration Pantoprazole Sodium 40 mg 12/12/19 10:00 12/14/19 09:22 Protonix - PO 40 mg DAILY ALEKSANDRA Administration Rivaroxaban 20 mg 12/12/19 18:00 12/13/19 17:10 Xarelto PO 20 mg DAILY@1800 ALEKSANDRA Administration ASSESSMENT AND PLAN: 69 F Moderate MIKAL Witnessed apnea/nocturnal choking Afib on AC HTN urgency UTI HLD Obesity Snoring Excessive daytime sleepiness Hypothyroidism Gout Plan: DC abx Stress test last year unremarkable Sleep screen showing moderate MIKAL, will need outpatient follow up w/ Pulmonary clinic for NPSG/CPAP Cont. BB/AC/Statin Cont. Synthroid Cardiology evaluation DC home
--- NOTE | 2019-12-14 13:17 | DS ---
Physical Exam: SUBJECTIVE: Patient seen and examined OBJECTIVE: Vital Signs Temperature 98.2 F 12/14/19 10:00 Pulse Rate 56 L 12/14/19 10:00 Respiratory Rate 17 12/14/19 10:00 Blood Pressure 136/83 12/14/19 10:00 O2 Sat by Pulse Oximetry (%) 95 12/14/19 12:49 PHYSICAL EXAM GENERAL: The patient is awake, alert, and fully oriented, in no acute distress. HEAD: Normal with no signs of trauma. EYES: PERRLA, EOMI, sclera anicteric, conjunctiva clear. No ptosis. ENT: moist mucous membranes. NECK: supple. LUNGS: Breath sounds equal, clear to auscultation bilaterally HEART: Regular rate and rhythm, S1, S2 ABDOMEN: Soft, nontender, nondistended, normoactive bowel sounds EXTREMITIES: 2+ pulses, warm, well-perfused, no edema. NEUROLOGICAL: Cranial nerves II through XII grossly intact. Normal speech PSYCH: Normal mood, normal affect. SKIN: Warm, dry, normal turgor LABS Laboratory Results - last 24 hr 12/11/19 12/14/19 12/14/19 13:14 05:35 05:35 WBC 5.9 RBC 4.46 Hgb 13.3 Hct 41.6 MCV 93.3 MCH 29.8 MCHC 32.0 RDW 14.6 Plt Count 202 MPV 8.3 Absolute Neuts (auto) 2.6 Neutrophils % 43.9 Lymphocytes % 44.3 H Monocytes % 6.2 Eosinophils % 4.8 H Basophils % 0.8 Nucleated RBC % 0 Sodium 140 Potassium 4.0 Chloride 107 Carbon Dioxide 26 Anion Gap 7 L BUN 15.8 Creatinine 1.1 Est GFR (CKD-EPI)AfAm 58.50 Est GFR (CKD-EPI)NonAf 50.47 Random Glucose 94 Calcium 8.8 Phosphorus 3.6 Magnesium 2.2 Total Bilirubin 0.3 AST 18 ALT 17 Alkaline Phosphatase 84 Total Protein 7.2 Albumin 3.5 Free T4 1.40 HOSPITAL COURSE: Date of Admission:12/11/19 Date of Discharge: 12/14/19 Patient is a 69 y/o F with hx of HTN, AFib on xarelto, CVA, SD s/p stent, HLD, hypothyroidism, panic attacks and anxiety presenting with 1 week history of intermittent midsternal chest pressure and palpitations. #Chest pain -EKG showing NSR, tele monitoring - sinus rhythm -Echo - (09/2019) - normal LV/RV, EF 55-60%, trace to mild AR, Mild MR and TR, normal RVSP -could have been caused by Afib with RVR that has resolved -Trop negative x2 -stress test done in 2019 : no myocardial ischemia or arrhythmias; fair exercise functional capacity (walked 6::07 minutes using Marshall protocol; 7.0 METS); asymptomatic throughout the examination. -Toprol XL 150mg daily, On xarelto 20mg daily -Continue statin -Cardiology consulted. #UTI -will continue Ceftriaxone and dc on vantin #HTN -Continue Lopressor and Losartan 100mg daily #Atrial fibrillation -currently sinus, HR 55-65 -Continue Toprol XL 150mg daily -Continue Xarelto 20mg daily #Hypothyroidism -Repeat TSH wnl -Will resume home dose Synthroid 75mcg daily #HLD -Continue Lipitor 20mg HS #Gout -Continue Allopurinol 300mg daily #GERD -continue Protonix 40mg daily Minutes to complete discharge: 37 Discharge Summary Problems reviewed: Yes Reason For Visit: CHEST PAIN Current Active Problems Chest pain (Acute) GERD with apnea (Acute) Hypertension (Acute) Paroxysmal atrial fibrillation (Acute) Shortness of breath (Acute) Condition: Stable - Instructions Diet, Activity, Other Instructions: Your visit You were admitted in the hospital because you had chest discomfort. You were given appropriate treatment for this and you are now in a regular rhythm. You were seen by cardiology. You were found to have a urinary tract infection as well and we are sending you home with antibiotics. Medication to continue at home: 1. Vantin 100mg twice a day for 2 days for your urine tract infection. start tomorrow in am 2. Metoprolol XL 150mg once daily Please continue your other home medications. Follow up Please follow up with your primary care physician within 1 week Please follow up with your junk removal specialist after you leave here as well in a couple weeks. Please follow up with the dimmer board operator/sleep specialist (Dr. Covington) for further work up. Please call the office to schedule an appointment. A referral has been provided. Additional info You should return to the ER if you have any worsening of your current symptoms like rapid irregular heart beat, shortness of breath, fevers, chills. Referrals: Jj Flowers MD [Staff Physician] - Yan Miller MD [Staff Physician] - Juan R Covington MD [Staff Physician] - Disposition: HOME - Home Medications Comprehensive Discharge Medication List: Ambulatory Orders Allopurinol 300 mg PO DAILY 08/18/19 Atorvastatin Ca [Lipitor] 20 mg PO HS 08/18/19 Levothyroxine [Synthroid -] 75 mcg PO DAILY 08/18/19 Rivaroxaban [Xarelto -] 20 mg PO DAILY 08/18/19 Levothyroxine [Synthroid -] 75 mcg PO DAILY@0700 tablet 12/12/19 Olmesartan Medoxomil [Benicar -] 40 mg PO DAILY 12/12/19 Omeprazole 40 mg PO DAILY 12/12/19 Metoprolol Succinate [Toprol XL -] 150 mg PO DAILY #30 tab.sr.24h 12/13/19 Cefpodoxime Proxetil [Vantin -] 200 mg PO Q12H #4 tablet 12/14/19 This patient is new to me today: No Emergency Visit: Yes ED Registration Date: 12/11/19 Care time: The patient presented to the Emergency Department on the above date and was hospitalized for further evaluation of their emergent condition. Critical Care patient: No - Discharge Referral Referred to [facility] Med P.C.: No ATTENDING PHYSICIAN STATEMENT I saw and evaluated the patient. I reviewed the resident's note and discussed the case with the resident. I agree with the resident's findings and plan as documented. SUBJECTIVE: OBJECTIVE: ASSESSMENT AND PLAN:
== END 2019-12-14 12:40 | disposition home or self-care (01) ==
LOC: JER 05:09 → JERBED 09:48 → JICU 12-12 03:43
PROC: 3E03329 Introduction of Other Anti-infective into Peripheral Vein, Percutaneous Approach (ICD-10-PCS; principal; 2019-12-11)
PROC: 3E033GC Introduction of Other Therapeutic Substance into Peripheral Vein, Percutaneous Approach (ICD-10-PCS; 2019-12-11)
DX: R07.89 Other chest pain (principal); R06.02 Shortness of breath; I10 Essential (primary) hypertension; I16.0 Hypertensive urgency; I48.0 Paroxysmal atrial fibrillation; I48.19 Other persistent atrial fibrillation; L03.031 Cellulitis of right toe; R11.2 Nausea with vomiting, unspecified; E03.9 Hypothyroidism, unspecified; K21.9 Gastro-esophageal reflux disease without esophagitis; M10.9 Gout, unspecified; N39.0 Urinary tract infection, site not specified; E66.9 Obesity, unspecified; Z68.34 Body mass index [BMI] 34.0-34.9, adult; E78.5 Hyperlipidemia, unspecified; R06.81 Apnea, not elsewhere classified; F41.0 Panic disorder [episodic paroxysmal anxiety]; Z87.891 Personal history of nicotine dependence; Z86.73 Personal history of transient ischemic attack (TIA), and cerebral infarction without residual deficits; Z79.01 Long term (current) use of anticoagulants
CPT/HCPCS: 36415; 71045-TC-FY; 80053; 80061; 81003; 82550; 82962; 83036; 83721; 83735; 83880; 84100; 84439; 84443; 84484; 85025; 87086; 93005; 93010; 96365; 96366; 96367; 96375; 99285-25; G0378; U0003

== ENCOUNTER 2020-09-05 16:52 | Inpatient (IN) | payer OTHER ==
[2020-09-05 17:00] VITALS: BMI 28.3
[2020-09-05] MEDS ORDERED: ONDANSETRON 4 MG/2 ML VIAL IVPUSH ONE (19:05)
[2020-09-05] MEDS ORDERED: ACETAMINOPHEN 1000 MG/100 ML VIAL (NON FORMULARY) IVPB ONE (19:05)
[2020-09-05] MEDS ORDERED: SODIUM CHLORIDE 1,000 ML IV STA (19:05)
[2020-09-05] MEDS ORDERED: ACETAMINOPHEN INJECTION 100 ML IVPB ONE (21:03)
[2020-09-05] MEDS ORDERED: METOCLOPRAMIDE HCL INJECTION 10 MG/2 ML VIAL ONE (21:03)
[2020-09-05] MEDS ORDERED: ONDANSETRON 4 MG/2 ML VIAL ONE (21:03)
[2020-09-05 22:04] LABS: BASO % 0.8 % (0-2.0); EOS % 0.6 % (0-4.5); HEMATOCRIT 43.4 % (32.4-45.2); HEMOGLOBIN 14.1 GM/dL (10.7-15.3); LYMPH % 29.8 % (8-40); MCH 29.8 pg (25.7-33.7); MCHC 32.4 g/dl (32.0-36.0); MEAN CELL VOLUME 91.9 fl (80-96); MEAN PLT VOLUME 9.4 fl (7.5-11.1); MONO % 4.2 % (3.8-10.2); NEUT % 64.6 % (42.8-82.8); PLATELET COUNT 258 K/MM3 (134-434); RBC 4.72 M/mm3 (3.60-5.2); RDW 14.8 % (11.6-15.6); WHITE BLOOD COUNT 6.5 K/mm3 (4.0-10.0)
[2020-09-05 22:09] LABS: EPI CELLS 16 /uL (0-25.1); HYALINE CASTS 0 /uL (0-3.1); URINE APPEARANCE CLOUDY; URINE BACTERIA 1303 /uL (0-1359); URINE BILIRUBIN NEGATIVE (NEGATIVE); URINE COLOR YELLOW; URINE GLUCOSE (UA) NEGATIVE (NEGATIVE); URINE KETONE NEGATIVE (NEGATIVE); URINE LEUK ESTERASE 3+ (NEGATIVE); URINE NITRITE NEGATIVE (NEGATIVE); URINE PROTEIN TRACE (NEGATIVE); URINE RBC 19 /uL (0-23.9); URINE UROBILINOGEN 0.2 mg/dL (0.2-1.0); URINE WBC 359 /uL (0-25.8)
[2020-09-05 22:18] LABS: INR 1.57 (0.83-1.09); PROTHROMBIN TIME (PATIENT) 18.8 SEC (9.7-13.0)
[2020-09-05 22:26] LABS: CHLORIDE 104 mmol/L (98-107); SODIUM 127 mmol/L (136-145)
[2020-09-05 22:28] LABS: CALCIUM 9.5 mg/dL (8.5-10.1); GLUCOSE,RANDOM 92 mg/dL (74-106)
[2020-09-05 22:29] LABS: ALBUMIN 3.4 g/dl (3.4-5.0); BLOOD UREA NITROGEN 16.2 mg/dL (7-18); CO2 27 mmol/L (21-32); LIPASE 65 U/L (73-393)
[2020-09-05 22:32] LABS: CREATININE 1.1 mg/dL (0.55-1.3)
[2020-09-05 22:33] LABS: TOT PROT 9.1 g/dl (6.4-8.2)
[2020-09-05 22:34] LABS: ALK PHOS 89 U/L (45-117)
[2020-09-05 22:51] LABS: ANION GAP -3 MMOL/L (8-16); SGOT/AST 162 U/L (15-37); SGPT/ALT 24 U/L (13-61)
[2020-09-05 22:54] LABS: BILIRUBIN,TOTAL < 0.1 mg/dL (0.2-1)
[2020-09-05 23:38] LABS: ALBUMIN 3.5 g/dl (3.4-5.0); BLOOD UREA NITROGEN 14.3 mg/dL (7-18); CALCIUM 9.1 mg/dL (8.5-10.1)
[2020-09-05 23:44] LABS: BILIRUBIN,TOTAL 0.4 mg/dL (0.2-1); TOT PROT 7.2 g/dl (6.4-8.2)
[2020-09-06] MEDS ORDERED: CEFTRIAXONE 1 GM/50 ML BAG ONE (00:38)
[2020-09-06 06:12] VITALS: BP 157/93; PULSE 62; TEMP 98.5
== END 2020-09-06 08:15 | disposition home or self-care (01) | DRG 392 ==
LOC: JER 16:52 → JERBED 09-06 01:56
PROVIDERS: ADMIT Hospitalist; ATTEND Hospitalist
DX: A08.39 Other viral enteritis (principal); N39.0 Urinary tract infection, site not specified; R11.2 Nausea with vomiting, unspecified; R19.7 Diarrhea, unspecified; I10 Essential (primary) hypertension; E78.5 Hyperlipidemia, unspecified; K21.9 Gastro-esophageal reflux disease without esophagitis; I48.91 Unspecified atrial fibrillation; E03.9 Hypothyroidism, unspecified
CPT/HCPCS: 36415; 70450-TC; 74177-TC; 80053; 81003; 82550; 82553; 83690; 84484; 85025; 85610; 87077; 87086; 93005; 93010; 99285-25; C9803; J0131; Q9967; U0003; U0005

== ENCOUNTER 2022-08-09 23:47 | Inpatient (IN) | payer OTHER ==
[2022-08-09 23:52] VITALS: BMI 34.3
[2022-08-10] MEDS ORDERED: LACTATED RINGERS SOLUTION 1000 ML INFUS.BAG IV ONE (00:42)
[2022-08-10] MEDS ORDERED: ONDANSETRON 4 MG/2 ML VIAL IVPB ONE (00:42)
[2022-08-10] MEDS ORDERED: FAMOTIDINE 20 MG/50 ML IVPB 20 MG/50 ML MG IVPB ONE ×2 (00:53→01:13)
[2022-08-10] MEDS ORDERED: MAG HYDROX/AL HYDROX/SIMETH 30 ML UNIT-DOSE CUP PO ONE (00:54)
[2022-08-10] MEDS ORDERED: MAG HYDROX/AL HYDROX/SIMETH 30 ML UNIT-DOSE CUP ONE (01:13)
[2022-08-10] MEDS ORDERED: ONDANSETRON 4 MG/2 ML VIAL ONE (01:13)
[2022-08-10 01:54] LABS: INR 1.32 (0.83-1.09); PROTHROMBIN TIME (PATIENT) 15.3 SEC (9.7-13.0)
[2022-08-10 01:56] LABS: ACTIVATED PTT 37.4 SECONDS (25.2-36.5)
[2022-08-10 01:57] LABS: BASO % 0.7 % (0-2.0); EOS % 2.4 % (0-4.5); HEMATOCRIT 38.7 % (32.4-45.2); HEMOGLOBIN 12.9 GM/dL (10.7-15.3); LYMPH % 21.2 % (8-40); MCH 30.6 pg (25.7-33.7); MCHC 33.3 g/dl (32.0-36.0); MEAN CELL VOLUME 91.9 fl (80-96); MEAN PLT VOLUME 7.3 fl (7.5-11.1); NEUT % 69.7 % (42.8-82.8); PLATELET COUNT 250 10^3/uL (134-434); RBC 4.22 M/mm3 (3.60-5.2); RDW 14.3 % (11.6-15.6); WHITE BLOOD COUNT 7.7 K/mm3 (4.0-10.0)
[2022-08-10 03:06] LABS: ALBUMIN 3.6 g/dl (3.4-5.0); CALCIUM 8.9 mg/dL (8.5-10.1); MAGNESIUM 1.4 mg/dL (1.8-2.4)
[2022-08-10 03:07] LABS: BLOOD UREA NITROGEN 20.5 mg/dL (7-18)
[2022-08-10 03:09] LABS: CREATININE 1.1 mg/dL (0.55-1.3); PHOSPHOROUS 2.1 mg/dL (2.5-4.9)
[2022-08-10] MEDS ORDERED: SODIUM CHLORIDE 0.9% 500 ML INFUS.BAG IV ONE (03:09)
[2022-08-10 03:11] LABS: BILIRUBIN,TOTAL 0.2 mg/dL (0.2-1); TOT PROT 7.6 g/dl (6.4-8.2)
[2022-08-10 03:14] LABS: N-TERMINAL BNP 148.2 pg/ml (5-125)
[2022-08-10 03:40] LABS: VENOUS BASE EXCESS -0.4 mmol/L (-2-2); VENOUS O2 SATURATION 70.2 % (70-80); VENOUS PCO2 42.8 mmHg (38-52); VENOUS PH 7.381 (7.310-7.410)
[2022-08-10] MEDS ORDERED: MAGNESIUM SULF 50% (8.12 MEQ/2 ML-1 GM VIAL) IVPB ONE (05:10)
[2022-08-10] MEDS ORDERED: MAGNESIUM SULFATE IN WATER 2 GM/50 ML IVPB IVPB ONE (05:33)
[2022-08-10] MEDS ORDERED: TRIMETHOBENZAMIDE HCL 200MG/2ML INJ IM PRN (05:54)
[2022-08-10 06:33] LABS: EPI CELLS 16 /uL (0-25.1); HYALINE CASTS 1 /uL (0-3.1); URINE APPEARANCE CLEAR; URINE BACTERIA 210 /uL (0-1359); URINE BILIRUBIN NEGATIVE (NEGATIVE); URINE COLOR YELLOW; URINE GLUCOSE (UA) NEGATIVE (NEGATIVE); URINE KETONE NEGATIVE (NEGATIVE); URINE LEUK ESTERASE 1+ (NEGATIVE); URINE NITRITE NEGATIVE (NEGATIVE); URINE PROTEIN 1+ (NEGATIVE); URINE RBC 16 /uL (0-23.9); URINE UROBILINOGEN 0.2 mg/dL (0.2-1.0); URINE WBC 54 /uL (0-25.8)
[2022-08-10 07:12] LABS: CALCIUM 8.2 mg/dL (8.5-10.1)
[2022-08-10 07:13] LABS: BLOOD UREA NITROGEN 16.5 mg/dL (7-18)
[2022-08-10 07:16] LABS: CREATININE 0.9 mg/dL (0.55-1.3); PHOSPHOROUS 2.4 mg/dL (2.5-4.9)
[2022-08-10] MEDS ORDERED: LEVOTHYROXINE NA 75 MCG TABLET (FP) ONE (07:23)
[2022-08-10] MEDS: LEVOTHYROXINE NA 75 MCG TABLET (FP) PO SCH (07:29)
[2022-08-10 09:01] LABS: BASO % 0.6 % (0-2.0); EOS % 1.9 % (0-4.5); HEMATOCRIT 37.3 % (32.4-45.2); HEMOGLOBIN 12.4 GM/dL (10.7-15.3); LYMPH % 34.4 % (8-40); MCH 29.8 pg (25.7-33.7); MCHC 33.2 g/dl (32.0-36.0); MEAN CELL VOLUME 89.7 fl (80-96); MEAN PLT VOLUME 6.8 fl (7.5-11.1); MONO % 5.2 % (3.8-10.2); NEUT % 57.9 % (42.8-82.8); PLATELET COUNT 238 10^3/uL (134-434); RBC 4.16 M/mm3 (3.60-5.2); RDW 13.9 % (11.6-15.6); WHITE BLOOD COUNT 5.9 K/mm3 (4.0-10.0)
[2022-08-10 09:45] VITALS: RESP 18
[2022-08-10] MEDS ORDERED: LOSARTAN POTASSIUM 50 MG TABLET PO SCH (10:00)
[2022-08-10] MEDS ORDERED: PANTOPRAZOLE SODIUM 40 MG VIAL IVPUSH SCH (10:00)
[2022-08-10] MEDS ORDERED: PANTOPRAZOLE SODIUM 40 MG VIAL ONE (10:33)
[2022-08-10] MEDS ORDERED: NAPH,MB-DB/K PH,MBDB POWDER PACKET ONE (10:33)
[2022-08-10] MEDS ORDERED: LOSARTAN POTASSIUM 50 MG TABLET ONE (10:33)
[2022-08-10] MEDS: NAPH,MB-DB/K PH,MBDB POWDER PACKET PO SCH ×2 (10:34→21:55)
[2022-08-10] MEDS ORDERED: RIVAROXABAN 20 MG TABLET PO SCH (18:00)
[2022-08-10] MEDS ORDERED: ATORVASTATIN CA 20 MG TABLET (FP) PO SCH (22:00)
[2022-08-11] MEDS: LEVOTHYROXINE NA 75 MCG TABLET (FP) PO SCH (06:29)
[2022-08-11 08:42] LABS: EOS % 5.8 % (0-4.5); HEMOGLOBIN 12.4 GM/dL (10.7-15.3); LYMPH % 45.2 % (8-40); MCH 29.2 pg (25.7-33.7); MCHC 32.6 g/dl (32.0-36.0); MEAN CELL VOLUME 89.7 fl (80-96); MEAN PLT VOLUME 6.8 fl (7.5-11.1); MONO % 6.7 % (3.8-10.2); NEUT % 41.3 % (42.8-82.8); PLATELET COUNT 235 10^3/uL (134-434); RBC 4.24 M/mm3 (3.60-5.2); RDW 14.2 % (11.6-15.6); WHITE BLOOD COUNT 5.3 K/mm3 (4.0-10.0)
[2022-08-11] MEDS ORDERED: TRIMETHOBENZAMIDE HCL 200MG/2ML INJ IM PRN (08:45)
[2022-08-11 09:04] LABS: ALBUMIN 3.2 g/dl (3.4-5.0)
[2022-08-11 09:08] LABS: BILIRUBIN,TOTAL 0.4 mg/dL (0.2-1); TOT PROT 6.7 g/dl (6.4-8.2)
[2022-08-11] MEDS ORDERED: PANTOPRAZOLE 40 MG TABLET PO SCH (10:00)
[2022-08-11] MEDS ORDERED: ALLOPURINOL 300 MG TABLET (FP) PO SCH (10:00)
[2022-08-11] MEDS: ALLOPURINOL 300 MG TABLET (FP) PO SCH (11:03)
[2022-08-11] MEDS: PANTOPRAZOLE 40 MG TABLET PO SCH (11:04)
[2022-08-11] MEDS: LOSARTAN POTASSIUM 50 MG TABLET PO SCH (11:04)
[2022-08-11] MEDS ORDERED: RIVAROXABAN 20 MG TABLET PO SCH (18:00)
[2022-08-11] MEDS ORDERED: ATORVASTATIN CA 20 MG TABLET (FP) PO SCH (22:00)
[2022-08-12] MEDS ORDERED: LEVOTHYROXINE NA 75 MCG TABLET (FP) PO SCH (07:00)
[2022-08-12] MEDS: PANTOPRAZOLE 40 MG TABLET PO SCH (10:28)
[2022-08-12] MEDS: ALLOPURINOL 300 MG TABLET (FP) PO SCH (10:28)
[2022-08-12] MEDS: LOSARTAN POTASSIUM 50 MG TABLET PO SCH (10:28)
[2022-08-12 13:44] VITALS: BP 119/76; PULSE 67; TEMP 98.7
== END 2022-08-12 17:05 | disposition home or self-care (01) | DRG 641 ==
LOC: JER 23:47 → JERBED 08-10 04:24 → J5S 08-10 19:30
PROVIDERS: ADMIT Internal Medicine; ATTEND Internal Medicine
DX: E87.1 Hypo-osmolality and hyponatremia (principal); I48.19 Other persistent atrial fibrillation; I10 Essential (primary) hypertension; E03.9 Hypothyroidism, unspecified; E78.5 Hyperlipidemia, unspecified; K21.9 Gastro-esophageal reflux disease without esophagitis; I25.10 Atherosclerotic heart disease of native coronary artery without angina pectoris; H81.13 Benign paroxysmal vertigo, bilateral; E83.39 Other disorders of phosphorus metabolism; E87.8 Other disorders of electrolyte and fluid balance, not elsewhere classified; E83.42 Hypomagnesemia; R11.2 Nausea with vomiting, unspecified; M10.9 Gout, unspecified; E66.9 Obesity, unspecified; Z68.34 Body mass index [BMI] 34.0-34.9, adult; Z86.73 Personal history of transient ischemic attack (TIA), and cerebral infarction without residual deficits
CPT/HCPCS: 0241U-QW; 36415; 70450-TC; 70551-TC; 71045-TC-FY; 80048; 80053; 81003; 82803; 82962; 83690; 83735; 83880; 83970; 84100; 84443; 84484; 84550; 85025; 85610; 85730; 86850; 86900; 86901; 87077; 87086; 93005; 93010; 93306-TC; 93880-TC; 99285-25

== ENCOUNTER 2022-10-15 04:06 | Day surgery (SDC) | payer OTHER ==
[2022-10-10 12:17] VITALS: BMI 34.3
[~2022-10-15 04:06] MED LIST: ACETAMINOPHEN 325 MG TABLET (FP) PO PRN
[2022-10-15] MEDS ORDERED: PHENYLEPHRINE 2.5% OPTHALMIC DROP 2ML BOTTLE ONE (06:22)
[2022-10-15] MEDS ORDERED: TROPICAMIDE 1% 3 ML EYE DROPS ONE (06:23)
[2022-10-15] MEDS ORDERED: OFLOXACIN 0.3% OPHTHALMIC SOLUTION 5 ML BOTTLE ONE (06:23)
[2022-10-15] MEDS ORDERED: KETOROLAC TROMETHAMINE 0.5% EYE DROP 1 DROP DROPS ONE (06:23)
[2022-10-15] MEDS ORDERED: CYCLOPENTOLATE HCL 1% OPHTH SOLN 2 ML BOTTLE ONE (06:23)
[2022-10-15] MEDS: OFLOXACIN 0.3% OPHTHALMIC SOLUTION 5 ML BOTTLE OP SCH ×3 (07:25→07:35)
[2022-10-15] MEDS: KETOROLAC TROMETHAMINE 0.5% EYE DROP 1 DROP DROPS OP SCH ×3 (07:25→07:35)
[2022-10-15] MEDS: CYCLOPENTOLATE HCL 1% OPHTH SOLN 2 ML BOTTLE OP SCH ×3 (07:25→07:35)
[2022-10-15] MEDS: PHENYLEPHRINE 2.5% OPHTH SOLN 15 ML BOTTLE OP SCH ×3 (07:25→07:35)
[2022-10-15] MEDS: TROPICAMIDE 1% OPHTH SOLN 15 ML BOTTLE OP SCH ×3 (07:25→07:35)
[2022-10-15] MEDS ORDERED: EPINEPHrine/PF 1 MG/1 ML (1:1,000) AMPULE ONE (07:29)
[2022-10-15] MEDS ORDERED: TETRACAINE 0.5% OPHTH SOLN 2 ML BOTTLE ONE (07:30)
[2022-10-15] MEDS ORDERED: LIDOCAINE HCL/PF 1% SDV 5ML VIAL ONE (07:30)
[2022-10-15] MEDS ORDERED: POVIDONE-IODINE 5% OPHTHALMIC PREP 30 ML SOLUTION ONE (07:30)
[2022-10-15] MEDS ORDERED: MIDAZOLAM HCL 2 MG/2 ML SINGLE DOSE VIAL ONE (08:08)
[2022-10-15] MEDS ORDERED: TETRACAINE 0.5% OPHTH SOLN 2 ML BOTTLE OS ONE (08:12)
[2022-10-15] MEDS ORDERED: POVIDONE-IODINE 5% OPHTHALMIC PREP 30 ML SOLUTION OS ONE (08:15)
[2022-10-15] MEDS ORDERED: BSS (NA/CA/MG/K) BALANCED SALT SOLUTION OPHTH SOLN 15 ML BOTTLE IO ONE (08:21)
[2022-10-15] MEDS ORDERED: LIDOCAINE HCL 1% PRESERVATIVE FREE - 30ML VIAL IO ONE (08:22)
[2022-10-15] MEDS ORDERED: CHONDROITIN SU A/HYALUR SOD 1 KIT IO ONE (08:23)
[2022-10-15] MEDS ORDERED: EPINEPHrine/PF 1 MG/1 ML (1:1,000) AMPULE SQ ONE (08:28)
[2022-10-15 10:49] VITALS: RESP 18
[2022-10-15 10:54] VITALS: TEMP 98.1
[2022-10-15 10:55] VITALS: BP 139/79; PULSE 62
== END 2022-10-15 10:10 | disposition home or self-care (01) ==
LOC: JASU-SURG 04:06
PROVIDERS: ATTEND Ophthalmology
PROC: 08RK3JZ Replacement of Left Lens with Synthetic Substitute, Percutaneous Approach (ICD-10-PCS; principal; 2022-10-15 08:00)
DX: H26.9 Unspecified cataract (principal)
CPT/HCPCS: V2632

== ENCOUNTER 2022-10-29 04:23 | Day surgery (SDC) | payer OTHER ==
[2022-10-28 09:58] VITALS: BMI 34.3
[~2022-10-29 04:23] MED LIST changes: +BSS (NA/CA/MG/K) BALANCED SALT SOLUTION OPHTH SOLN 15 ML BOTTLE OD ONE; +CHONDROITIN SU A/HYALUR SOD 1 KIT IO ONE; +EPINEPHrine/PF 1 MG/1 ML (1:1,000) AMPULE SQ ONE; +LIDOCAINE HCL 1% PRESERVATIVE FREE - 30ML VIAL IO ONE; +PHENYLEPHRINE 2.5% OPHTH SOLN 15 ML BOTTLE OP SCH; +POVIDONE-IODINE 5% OPHTHALMIC PREP 30 ML SOLUTION OD ONE; +TETRACAINE 0.5% OPHTH SOLN 2 ML BOTTLE TP ONE
[2022-10-29] MEDS ORDERED: POVIDONE-IODINE 5% OPHTHALMIC PREP 30 ML SOLUTION ONE (07:24)
[2022-10-29] MEDS ORDERED: LIDOCAINE HCL/PF 1% SDV 5ML VIAL ONE (07:24)
[2022-10-29] MEDS ORDERED: TETRACAINE 0.5% OPHTH SOLN 2 ML BOTTLE ONE (07:24)
[2022-10-29] MEDS ORDERED: KETOROLAC TROMETHAMINE 0.5% EYE DROP 1 DROP DROPS ONE (08:37)
[2022-10-29] MEDS ORDERED: TROPICAMIDE 1% OPHTH SOLN 15 ML BOTTLE ONE (08:37)
[2022-10-29] MEDS ORDERED: CYCLOPENTOLATE HCL 1% OPHTH SOLN 2 ML BOTTLE ONE (08:37)
[2022-10-29] MEDS ORDERED: OFLOXACIN 0.3% OPHTHALMIC SOLUTION 5 ML BOTTLE ONE (08:37)
[2022-10-29] MEDS: PHENYLEPHRINE 2.5% OPTHALMIC DROP 2ML BOTTLE ONE ×3 (08:49→09:12)
[2022-10-29] MEDS: OFLOXACIN 0.3% OPHTHALMIC SOLUTION 5 ML BOTTLE OP SCH ×3 (08:49→09:12)
[2022-10-29] MEDS: TROPICAMIDE 1% OPHTH SOLN 15 ML BOTTLE OP SCH ×3 (08:49→09:12)
[2022-10-29] MEDS: CYCLOPENTOLATE HCL 1% OPHTH SOLN 2 ML BOTTLE OP SCH ×3 (08:49→09:12)
[2022-10-29] MEDS: KETOROLAC TROMETHAMINE 0.5% EYE DROP 1 DROP DROPS OP SCH ×3 (08:49→09:12)
[2022-10-29] MEDS ORDERED: MIDAZOLAM HCL 2 MG/2 ML SINGLE DOSE VIAL ONE (09:39)
[2022-10-29] MEDS ORDERED: TETRACAINE 0.5% OPHTH SOLN 2 ML BOTTLE TP ONE (10:05)
[2022-10-29] MEDS ORDERED: POVIDONE-IODINE 5% OPHTHALMIC PREP 30 ML SOLUTION OD ONE (10:07)
[2022-10-29] MEDS ORDERED: BSS (NA/CA/MG/K) BALANCED SALT SOLUTION OPHTH SOLN 15 ML BOTTLE OD ONE (10:13)
[2022-10-29] MEDS ORDERED: LIDOCAINE HCL 1% PRESERVATIVE FREE - 30ML VIAL IO ONE (10:14)
[2022-10-29] MEDS ORDERED: CHONDROITIN SU A/HYALUR SOD 1 KIT IO ONE (10:16)
[2022-10-29] MEDS ORDERED: EPINEPHrine/PF 1 MG/1 ML (1:1,000) AMPULE SQ ONE (10:20)
[2022-10-29 11:00] VITALS: RESP 18
[2022-10-29 12:11] VITALS: BP 135/82; PULSE 59; TEMP 97.6
== END 2022-10-29 11:45 | disposition home or self-care (01) ==
LOC: JASU-SURG 04:23
PROVIDERS: ATTEND Ophthalmology
PROC: 08RJ3JZ Replacement of Right Lens with Synthetic Substitute, Percutaneous Approach (ICD-10-PCS; principal; 2022-10-29 10:00)
DX: H26.9 Unspecified cataract (principal)
CPT/HCPCS: V2632

== ENCOUNTER 2023-04-08 12:24 | Observation (INO) | payer OTHER ==
[2023-04-08 12:31] VITALS: BMI 34.3
[2023-04-08 14:21] LABS: BASO % 1.1 % (0-2.0); EOS % 4.3 % (0-4.5); HEMATOCRIT 39.8 % (32.4-45.2); HEMOGLOBIN 12.7 GM/dL (10.7-15.3); LYMPH % 37.5 % (8-40); MCH 30.2 pg (25.7-33.7); MCHC 31.9 g/dl (32.0-36.0); MEAN CELL VOLUME 94.8 fl (80-96); MEAN PLT VOLUME 7.1 fl (7.5-11.1); MONO % 7.6 % (3.8-10.2); NEUT % 49.5 % (42.8-82.8); PLATELET COUNT 248 10^3/uL (134-434); RDW 14.6 % (11.6-15.6); WHITE BLOOD COUNT 5.3 K/mm3 (4.0-10.0)
[2023-04-08 14:22] LABS: VENOUS BASE EXCESS 1.3 mmol/L (-2-2); VENOUS PH 7.365 (7.310-7.410)
[2023-04-08] MEDS ORDERED: ACETAMINOPHEN 1000 MG/100 ML BAG IVPB ONE (14:24)
[2023-04-08] MEDS ORDERED: ACETAMINOPHEN INJECTION 100 ML IVPB ONE (14:28)
[2023-04-08 14:39] LABS: POTASSIUM 4.4 mmol/L (3.5-5.1)
[2023-04-08 14:43] LABS: CALCIUM 8.6 mg/dL (8.5-10.1)
[2023-04-08 14:44] LABS: ALBUMIN 3.3 g/dl (3.4-5.0); BLOOD UREA NITROGEN 23.7 mg/dL (7-18)
[2023-04-08 14:47] LABS: CREATININE 1.1 mg/dL (0.55-1.3)
[2023-04-08 14:48] LABS: TOT PROT 7.6 g/dl (6.4-8.2)
[2023-04-08 14:49] LABS: BILIRUBIN,TOTAL 0.4 mg/dL (0.2-1)
[2023-04-08 14:52] LABS: N-TERMINAL BNP 149.3 pg/ml (5-450)
[2023-04-08 15:00] LABS: EPI CELLS 9 /uL (0-25.1); HYALINE CASTS 0 /uL (0-3.1); PH,URINE 6.5 (5.0-8.0); URINE APPEARANCE CLEAR; URINE BACTERIA 143 /uL (0-1359); URINE BILIRUBIN NEGATIVE (NEGATIVE); URINE COLOR YELLOW; URINE GLUCOSE (UA) NEGATIVE (NEGATIVE); URINE KETONE NEGATIVE (NEGATIVE); URINE LEUK ESTERASE 1+ (NEGATIVE); URINE NITRITE NEGATIVE (NEGATIVE); URINE PROTEIN NEGATIVE (NEGATIVE); URINE RBC 15 /uL (0-23.9); URINE UROBILINOGEN 0.2 mg/dL (0.2-1.0); URINE WBC 15 /uL (0-25.8)
[2023-04-08] MEDS ORDERED: SODIUM CHLORIDE 0.9% 500 ML INFUS.BAG IV ONE (16:12)
[2023-04-08] MEDS ORDERED: ATORVASTATIN CA 20 MG TABLET (FP) ONE (21:50)
[2023-04-08] MEDS ORDERED: ATORVASTATIN CA 20 MG TABLET (FP) PO SCH (22:00)
[2023-04-09] MEDS ORDERED: LEVOTHYROXINE NA 75 MCG TABLET (FP) PO SCH (07:00)
[2023-04-09 08:02] LABS: BASO % 0.8 % (0-2.0); EOS % 4.9 % (0-4.5); HEMOGLOBIN 12.1 GM/dL (10.7-15.3); LYMPH % 37.1 % (8-40); MCH 30.1 pg (25.7-33.7); MCHC 31.9 g/dl (32.0-36.0); MEAN CELL VOLUME 94.4 fl (80-96); MEAN PLT VOLUME 7.4 fl (7.5-11.1); MONO % 7.9 % (3.8-10.2); NEUT % 49.3 % (42.8-82.8); PLATELET COUNT 242 10^3/uL (134-434); RBC 4.02 M/mm3 (3.60-5.2); RDW 14.6 % (11.6-15.6); WHITE BLOOD COUNT 5.2 K/mm3 (4.0-10.0)
[2023-04-09 08:21] LABS: POTASSIUM 3.9 mmol/L (3.5-5.1)
[2023-04-09 08:29] LABS: ALBUMIN 3.4 g/dl (3.4-5.0); BLOOD UREA NITROGEN 24.6 mg/dL (7-18); CALCIUM 8.6 mg/dL (8.5-10.1); MAGNESIUM 1.5 mg/dL (1.8-2.4)
[2023-04-09 08:32] LABS: CREATININE 1.1 mg/dL (0.55-1.3); PHOSPHOROUS 3.4 mg/dL (2.5-4.9)
[2023-04-09 08:34] LABS: BILIRUBIN,TOTAL 0.4 mg/dL (0.2-1); TOT PROT 7.2 g/dl (6.4-8.2)
[2023-04-09] MEDS ORDERED: ESCITALOPRAM OXALATE 20 MG TABLET PO SCH (10:00)
[2023-04-09] MEDS ORDERED: PANTOPRAZOLE 40 MG TABLET PO SCH (10:00)
[2023-04-09] MEDS ORDERED: METOPROLOL SUCCINATE 100 MG, METOPROLOL SUCCINATE 50 MG PO SCH (10:00)
[2023-04-09] MEDS ORDERED: ALLOPURINOL 300 MG TABLET (FP) PO SCH (10:00)
[2023-04-09] MEDS ORDERED: MAGNESIUM SULFATE IN WATER 2 GM/50 ML IVPB IVPB ONE ×2 (10:11→10:29)
[2023-04-09] MEDS ORDERED: PANTOPRAZOLE 40 MG TABLET PO ONE (10:27)
[2023-04-09 10:28] VITALS: BP 132/90; PULSE 68; RESP 19; TEMP 97.9
[2023-04-09] MEDS ORDERED: ESCITALOPRAM OXALATE 10 MG TABLET ONE (10:28)
[2023-04-09] MEDS ORDERED: RIVAROXABAN 20 MG TABLET PO SCH (18:00)
== END 2023-04-09 16:35 | disposition home or self-care (01) ==
LOC: JER 12:24 → JERBED 16:49
PROVIDERS: ADMIT Internal Medicine; ATTEND Internal Medicine
PROC: 3E033NZ Introduction of Analgesics, Hypnotics, Sedatives into Peripheral Vein, Percutaneous Approach (ICD-10-PCS; principal; 2023-04-08)
PROC: 3E033GC Introduction of Other Therapeutic Substance into Peripheral Vein, Percutaneous Approach (ICD-10-PCS; 2023-04-08)
PROC: 3E0337Z Introduction of Electrolytic and Water Balance Substance into Peripheral Vein, Percutaneous Approach (ICD-10-PCS; 2023-04-08)
DX: I25.10 Atherosclerotic heart disease of native coronary artery without angina pectoris (principal); I10 Essential (primary) hypertension; I48.91 Unspecified atrial fibrillation; Z79.01 Long term (current) use of anticoagulants; E78.5 Hyperlipidemia, unspecified; E87.1 Hypo-osmolality and hyponatremia; E03.9 Hypothyroidism, unspecified; R07.9 Chest pain, unspecified; M10.9 Gout, unspecified; F41.8 Other specified anxiety disorders; E03.8 Other specified hypothyroidism
CPT/HCPCS: 0241U-QW; 36415; 71045-TC-FY; 71250-TC; 80053; 81003; 82570; 82803; 83735; 83880; 83930; 83935; 84100; 84300; 84443; 84484; 85025; 93005; 93010; 96365; 96375; 99285-25; G0378

== ENCOUNTER 2024-04-09 00:03 | Inpatient (IN) | payer OTHER ==
[2024-04-09 00:59] LABS: BASO % 0.9 % (0-2.0); EOS % 2.8 % (0-4.5); HEMATOCRIT 41.3 % (32.4-45.2); HEMOGLOBIN 13.4 GM/dL (10.7-15.3); LYMPH % 35.8 % (8-40); MCH 30.6 pg (25.7-33.7); MCHC 32.6 g/dl (32.0-36.0); MEAN PLT VOLUME 7.5 fl (7.5-11.1); MONO % 3.9 % (3.8-10.2); NEUT % 56.6 % (42.8-82.8); PLATELET COUNT 202 10^3/uL (134-434); RBC 4.39 M/mm3 (3.60-5.2); RDW 15.3 % (11.6-15.6); WHITE BLOOD COUNT 6.7 K/mm3 (4.0-10.0)
[2024-04-09 01:17] LABS: INR 1.6 (0.83-1.09); PROTHROMBIN TIME (PATIENT) 18.1 SEC (9.7-13.0)
[2024-04-09 01:20] LABS: ACTIVATED PTT 38.9 SECONDS (25.2-36.5)
[2024-04-09 01:31] LABS: POTASSIUM 4.2 mmol/L (3.5-5.1)
[2024-04-09 01:33] LABS: ALBUMIN 3.3 g/dl (3.4-5.0); BLOOD UREA NITROGEN 21.6 mg/dL (7-18)
[2024-04-09 01:37] LABS: CREATININE 1.2 mg/dL (0.55-1.3)
[2024-04-09 01:38] LABS: BILIRUBIN,TOTAL 0.4 mg/dL (0.2-1); TOT PROT 6.8 g/dl (6.4-8.2)
[2024-04-09] MEDS ORDERED: FUROSEMIDE 40 MG/4 ML INJECTABLE VIAL ONE (02:14)
[2024-04-09] MEDS: FUROSEMIDE 40 MG/4 ML INJECTABLE VIAL IVPUSH ONE (02:32)
[2024-04-09] MEDS ORDERED: ALBUTEROL SO4 HFA INHALER IH PRN (05:35)
[2024-04-09 06:04] LABS: BASO % 1.1 % (0-2.0); HEMATOCRIT 40.2 % (32.4-45.2); HEMOGLOBIN 12.9 GM/dL (10.7-15.3); LYMPH % 37.4 % (8-40); MCH 30.6 pg (25.7-33.7); MCHC 32.2 g/dl (32.0-36.0); MEAN CELL VOLUME 95.2 fl (80-96); MONO % 5.1 % (3.8-10.2); NEUT % 54.4 % (42.8-82.8); PLATELET COUNT 205 10^3/uL (134-434); RBC 4.22 M/mm3 (3.60-5.2); RDW 15.3 % (11.6-15.6); WHITE BLOOD COUNT 7.1 K/mm3 (4.0-10.0)
[2024-04-09 06:25] LABS: ALBUMIN 3.3 g/dl (3.4-5.0)
[2024-04-09 06:26] LABS: BLOOD UREA NITROGEN 21.6 mg/dL (7-18); MAGNESIUM 1.5 mg/dL (1.8-2.4)
[2024-04-09 06:28] LABS: PHOSPHOROUS 3.7 mg/dL (2.5-4.9)
[2024-04-09 06:29] LABS: CREATININE 1.2 mg/dL (0.55-1.3)
[2024-04-09 06:30] LABS: BILIRUBIN,TOTAL 0.6 mg/dL (0.2-1); TOT PROT 7.4 g/dl (6.4-8.2)
[2024-04-09] MEDS: METOPROLOL TARTRATE 5 MG/5 ML VIAL IVPUSH ONE ×2 (06:58→16:12)
[2024-04-09] MEDS: LEVOTHYROXINE NA 50 MCG TABLET (FP) PO SCH (07:05)
[2024-04-09] MEDS: METOPROLOL TARTRATE 50 MG TABLET (FP) PO ONE (07:09)
[2024-04-09] MEDS: LOSARTAN POTASSIUM 50 MG TABLET PO SCH (10:05)
[2024-04-09] MEDS: PANTOPRAZOLE 40 MG TABLET PO SCH (10:05)
[2024-04-09] MEDS: ESCITALOPRAM OXALATE 20 MG TABLET PO SCH (10:05)
[2024-04-09] MEDS: RIVAROXABAN 20 MG TABLET PO SCH (10:06)
[2024-04-09] MEDS: ALLOPURINOL 300 MG TABLET (FP) PO SCH (10:06)
[2024-04-09] MEDS: MAGNESIUM 2GM/50ML STERILE WATER IVPB IVPB ONE (10:06)
[2024-04-09] MEDS: MAGNESIUM SULF 50% (8.12 MEQ/2 ML-1 GM VIAL) IVPB ONE (10:07)
[2024-04-09] MEDS: FUROSEMIDE 40 MG/4 ML INJECTABLE VIAL IVPUSH SCH (11:24)
[2024-04-09] MEDS ORDERED: FUROSEMIDE 40 MG/4 ML INJECTABLE VIAL IVPUSH SCH (14:00)
[2024-04-09] MEDS ORDERED: METOPROLOL TARTRATE 5 MG/5 ML VIAL IVPUSH PRN (15:57)
[2024-04-09] MEDS: METOPROLOL TARTRATE 50 MG TABLET (FP) PO SCH (17:45)
[2024-04-09] MEDS ORDERED: FLU VACCINE (FLULAVAL) PF 45 MCG/0.5 ML SYRINGE 2024-2025 IM ONE (17:54)
[2024-04-09] MEDS: dilTIAZem HCL 50 MG/10 ML - 10 ML VIAL IVPUSH ONE (19:11)
[2024-04-09 19:21] LABS: POTASSIUM 3.7 mmol/L (3.5-5.1)
[2024-04-09 19:23] LABS: ALBUMIN 3.2 g/dl (3.4-5.0); BLOOD UREA NITROGEN 24.2 mg/dL (7-18); MAGNESIUM 1.8 mg/dL (1.8-2.4)
[2024-04-09 19:27] LABS: CREATININE 1.3 mg/dL (0.55-1.3)
[2024-04-09 19:28] LABS: BILIRUBIN,TOTAL 0.6 mg/dL (0.2-1); TOT PROT 7.1 g/dl (6.4-8.2)
[2024-04-09] MEDS: ATORVASTATIN CA 20 MG TABLET (FP) PO SCH (21:31)
[2024-04-09] MEDS: AMIODARONE IN DEXTROSE,ISO-OSM 150 MG/100 ML BAG IVPB ONE (23:12)
[2024-04-10] MEDS ORDERED: ALBUTEROL SO4 HFA INHALER IH PRN (00:41)
[2024-04-10] MEDS: ESMOLOL 2500 MG/250 ML 2,500,000 MCG/250 ML INFUS.BAG IVPB SCH (01:16)
[2024-04-10] MEDS: MUPIROCIN 2% TOPICAL OINTMENT FOR DECOLONIZATION NS SCH (02:00)
[2024-04-10] MEDS: FUROSEMIDE 40 MG/4 ML INJECTABLE VIAL IVPUSH SCH (05:00)
[2024-04-10 06:54] LABS: BASO % 0.5 % (0-2.0); EOS % 2.7 % (0-4.5); HEMATOCRIT 40.8 % (32.4-45.2); HEMOGLOBIN 13.2 GM/dL (10.7-15.3); LYMPH % 32.5 % (8-40); MCH 30.6 pg (25.7-33.7); MCHC 32.3 g/dl (32.0-36.0); MEAN CELL VOLUME 94.8 fl (80-96); MEAN PLT VOLUME 8.1 fl (7.5-11.1); MONO % 6.2 % (3.8-10.2); NEUT % 58.1 % (42.8-82.8); PLATELET COUNT 197 10^3/uL (134-434); RDW 15.2 % (11.6-15.6); WHITE BLOOD COUNT 7.2 K/mm3 (4.0-10.0)
[2024-04-10] MEDS: LEVOTHYROXINE NA 100 MCG TABLET (FP) PO SCH (07:00)
[2024-04-10] MEDS: AMIODARONE IN DEXTROSE,ISO-OSM 150 MG/100 ML BAG IVPB ONE (07:09)
[2024-04-10 07:16] LABS: POTASSIUM 3.6 mmol/L (3.5-5.1)
[2024-04-10 07:29] LABS: CALCIUM 8.4 mg/dL (8.5-10.1)
[2024-04-10 07:30] LABS: ALBUMIN 3.1 g/dl (3.4-5.0); BLOOD UREA NITROGEN 23.5 mg/dL (7-18); MAGNESIUM 1.6 mg/dL (1.8-2.4)
[2024-04-10] MEDS: AMIODARONE IN DEXTROSE,ISO-OSM 360 MG/200 ML BAG IV SCH ×3 (07:30→22:23)
[2024-04-10 07:32] LABS: PHOSPHOROUS 4.4 mg/dL (2.5-4.9)
[2024-04-10 07:33] LABS: CREATININE 1.5 mg/dL (0.55-1.3)
[2024-04-10 07:34] LABS: BILIRUBIN,TOTAL 0.7 mg/dL (0.2-1); TOT PROT 6.8 g/dl (6.4-8.2)
[2024-04-10] MEDS: MAGNESIUM 2GM/50ML STERILE WATER IVPB IVPB ONE (09:44)
[2024-04-10] MEDS: ESCITALOPRAM OXALATE 20 MG TABLET PO SCH (09:44)
[2024-04-10] MEDS: PANTOPRAZOLE 40 MG TABLET PO SCH (09:44)
[2024-04-10] MEDS ORDERED: FUROSEMIDE 40 MG/4 ML INJECTABLE VIAL ONE (10:43)
[2024-04-10] MEDS: RIVAROXABAN 20 MG TABLET PO SCH (17:25)
[2024-04-10] MEDS: ALLOPURINOL 300 MG TABLET (FP) PO SCH (17:35)
[2024-04-10] MEDS: CHLORHEXIDINE GLUCONATE 4% CLEANSER FOR DECOLONIZATION TP SCH (21:27)
[2024-04-10] MEDS: ATORVASTATIN CA 20 MG TABLET (FP) PO SCH (21:27)
[2024-04-11] MEDS: AMIODARONE IN DEXTROSE 150 MG/100 ML PREMIX BAG IVPB ONE (00:03)
[2024-04-11] MEDS: ACETAMINOPHEN 1000 MG/100 ML BAG IVPB ONE ×2 (00:23→23:39)
[2024-04-11] MEDS: AMIODARONE HCL 150 MG/3 ML VIAL IVPUSH ONE (02:10)
[2024-04-11] MEDS: AMIODARONE IN DEXTROSE,ISO-OSM 360 MG/200 ML BAG IV SCH ×2 (09:00→21:54)
[2024-04-11] MEDS: FUROSEMIDE 40 MG/4 ML INJECTABLE VIAL IVPUSH SCH (09:24)
[2024-04-11] MEDS ORDERED: LEVOTHYROXINE NA 100 MCG TABLET (FP) PO SCH (11:00)
[2024-04-11 12:45] LABS: POTASSIUM 3.4 mmol/L (3.5-5.1)
[2024-04-11 12:48] LABS: BLOOD UREA NITROGEN 18.5 mg/dL (7-18); CALCIUM 8.6 mg/dL (8.5-10.1)
[2024-04-11 12:49] LABS: ALBUMIN 3.1 g/dl (3.4-5.0)
[2024-04-11 12:52] LABS: CREATININE 1.2 mg/dL (0.55-1.3); PHOSPHOROUS 3.6 mg/dL (2.5-4.9)
[2024-04-11 12:53] LABS: BILIRUBIN,TOTAL 0.4 mg/dL (0.2-1)
[2024-04-11 13:25] VITALS: BMI 35.3
[2024-04-11] MEDS ORDERED: LEVOTHYROXINE NA 125 MCG TABLET (FP) PO SCH (14:15)
[2024-04-11] MEDS: KCL 10 MEQ IVPB 10 MEQ/100 ML INFUS.BAG IVPB SCH ×2 (14:50→23:40)
[2024-04-11] MEDS: ESMOLOL 2500 MG/250 ML 2,500,000 MCG/250 ML INFUS.BAG IVPB SCH (16:57)
[2024-04-11] MEDS: AMIODARONE IN DEXTROSE,ISO-OSM 150 MG/100 ML BAG IVPB ONE (21:50)
[2024-04-11] MEDS: FUROSEMIDE 40 MG/4 ML INJECTABLE VIAL IVPUSH ONE (21:53)
[2024-04-11 22:23] LABS: POTASSIUM 3.7 mmol/L (3.5-5.1)
[2024-04-11 22:24] LABS: CALCIUM 8.2 mg/dL (8.5-10.1)
[2024-04-11 22:25] LABS: BLOOD UREA NITROGEN 20.7 mg/dL (7-18); MAGNESIUM 1.8 mg/dL (1.8-2.4)
[2024-04-11 22:28] LABS: CREATININE 1.4 mg/dL (0.55-1.3); PHOSPHOROUS 2.5 mg/dL (2.5-4.9)
[2024-04-11 22:33] LABS: N-TERMINAL BNP 767.4 pg/ml (5-450)
[2024-04-11] MEDS ORDERED: ONDANSETRON 4 MG/2 ML VIAL ONE (22:44)
[2024-04-11] MEDS: ONDANSETRON 4 MG/2 ML VIAL IVPUSH ONE (22:46)
[2024-04-12] MEDS: MAGNESIUM SULFATE IN WATER 2 GM/50 ML IVPB IVPB ONE (00:25)
[2024-04-12] MEDS: LEVOTHYROXINE NA 125 MCG TABLET (FP) PO SCH (06:27)
[2024-04-12 07:16] LABS: HEMATOCRIT 38.2 % (32.4-45.2); HEMOGLOBIN 12.3 GM/dL (10.7-15.3); MCH 30.5 pg (25.7-33.7); MCHC 32.3 g/dl (32.0-36.0); MEAN CELL VOLUME 94.6 fl (80-96); MEAN PLT VOLUME 8.1 fl (7.5-11.1); PLATELET COUNT 183 10^3/uL (134-434); RBC 4.04 M/mm3 (3.60-5.2); RDW 15.3 % (11.6-15.6); WHITE BLOOD COUNT 7.1 K/mm3 (4.0-10.0)
[2024-04-12 07:32] LABS: POTASSIUM 4.4 mmol/L (3.5-5.1)
[2024-04-12 07:34] LABS: CALCIUM 8.1 mg/dL (8.5-10.1)
[2024-04-12 07:35] LABS: ALBUMIN 2.8 g/dl (3.4-5.0); BLOOD UREA NITROGEN 21.2 mg/dL (7-18); MAGNESIUM 2.6 mg/dL (1.8-2.4)
[2024-04-12 07:38] LABS: CREATININE 1.6 mg/dL (0.55-1.3); PHOSPHOROUS 4.2 mg/dL (2.5-4.9)
[2024-04-12 07:39] LABS: BILIRUBIN,TOTAL 0.4 mg/dL (0.2-1); TOT PROT 6.3 g/dl (6.4-8.2)
[2024-04-12] MEDS: AMIODARONE HCL 200 MG TABLET PO SCH ×2 (09:36→22:01)
[2024-04-12] MEDS: metoPROLOL SUCCINATE 25 MG TAB.SR.24H (FP) PO ONE (12:49)
[2024-04-12] MEDS: FLU VACCINE (FLULAVAL) PF 45 MCG/0.5 ML SYRINGE 2024-2025 IM ONE (18:53)
[2024-04-12] MEDS: FUROSEMIDE 40 MG/4 ML INJECTABLE VIAL IVPUSH ONE (22:00)
[2024-04-12 22:04] LABS: POTASSIUM 3.3 mmol/L (3.5-5.1)
[2024-04-12 22:06] LABS: CALCIUM 8.3 mg/dL (8.5-10.1); MAGNESIUM 2.2 mg/dL (1.8-2.4)
[2024-04-12 22:10] LABS: CREATININE 1.6 mg/dL (0.55-1.3); PHOSPHOROUS 3.6 mg/dL (2.5-4.9)
[2024-04-12 22:13] LABS: BLOOD UREA NITROGEN 26.5 mg/dL (7-18)
[2024-04-12] MEDS: KCL 10 MEQ IVPB 10 MEQ/100 ML INFUS.BAG IVPB SCH (22:32)
[2024-04-13] MEDS ORDERED: AMIODARONE IN DEXTROSE,ISO-OSM 150 MG/100 ML BAG ONE (01:19)
[2024-04-13] MEDS: AMIODARONE IN DEXTROSE,ISO-OSM 150 MG/100 ML BAG IVPB ONE ×2 (01:40→06:42)
[2024-04-13] MEDS: metoPROLOL SUCCINATE 25 MG TAB.SR.24H (FP) PO SCH (09:37)
[2024-04-13] MEDS: METOPROLOL TARTRATE 5 MG/5 ML VIAL IVPUSH PRN (10:07)
[2024-04-13 12:13] LABS: HEMATOCRIT 42.8 % (32.4-45.2); MCH 30.5 pg (25.7-33.7); MCHC 32.6 g/dl (32.0-36.0); MEAN CELL VOLUME 93.6 fl (80-96); PLATELET COUNT 186 10^3/uL (134-434); RBC 4.58 M/mm3 (3.60-5.2); RDW 15.1 % (11.6-15.6); WHITE BLOOD COUNT 5.7 K/mm3 (4.0-10.0)
[2024-04-13 12:30] LABS: INR 1.81 (0.83-1.09); PROTHROMBIN TIME (PATIENT) 20.1 SEC (9.7-13.0)
[2024-04-13 12:31] LABS: POTASSIUM 3.6 mmol/L (3.5-5.1)
[2024-04-13 12:33] LABS: ALBUMIN 2.9 g/dl (3.4-5.0); CALCIUM 8.4 mg/dL (8.5-10.1)
[2024-04-13 12:34] LABS: BLOOD UREA NITROGEN 23.1 mg/dL (7-18); MAGNESIUM 1.8 mg/dL (1.8-2.4)
[2024-04-13 12:37] LABS: CREATININE 1.3 mg/dL (0.55-1.3); PHOSPHOROUS 2.6 mg/dL (2.5-4.9)
[2024-04-13 12:38] LABS: BILIRUBIN,TOTAL 0.4 mg/dL (0.2-1)
[2024-04-13] MEDS: POTASSIUM CHLORIDE ORAL LIQUID 20 MEQ/15 ML PO ONE (16:14)
[2024-04-13] MEDS: MAGNESIUM SULFATE IN WATER 2 GM/50 ML IVPB IVPB ONE (16:15)
[2024-04-13 20:14] VITALS: TEMP 98
[2024-04-13 22:44] VITALS: BP 137/127; PULSE 120; RESP 20
== END 2024-04-13 22:53 | disposition short-term general hospital (02) | DRG 291 ==
LOC: JER 00:03 → JERBED 03:51 → OBSVTOIN 05:05 → J4W 06:50 → JICU 04-10 00:44
PROVIDERS: ADMIT Internal Medicine; ATTEND Internal Medicine Pulmonary Disease
DX: I13.0 Hypertensive heart and chronic kidney disease with heart failure and stage 1 through stage 4 chronic kidney disease, or unspecified chronic kidney disease (principal); I50.33 Acute on chronic diastolic (congestive) heart failure; I48.92 Unspecified atrial flutter; E78.5 Hyperlipidemia, unspecified; F41.9 Anxiety disorder, unspecified; F32.A Depression, unspecified; M10.9 Gout, unspecified; I25.2 Old myocardial infarction; E03.9 Hypothyroidism, unspecified; I48.0 Paroxysmal atrial fibrillation; I34.0 Nonrheumatic mitral (valve) insufficiency; Z79.01 Long term (current) use of anticoagulants; N18.9 Chronic kidney disease, unspecified
CPT/HCPCS: 0241U-QW; 36415; 71045-TC-FY; 76775-TC; 80048; 80053; 82570; 82962; 83735; 83880; 84100; 84156; 84439; 84443; 84481; 84484; 85025; 85027; 85610; 85730; 87481; 87635; 90656; 93005; 93010; 93306-TC; 99285-25; G0008; G0378; J0131; J0282

== ENCOUNTER 2024-09-23 17:27 | Emergency (ER) | payer OTHER ==
[2024-09-23 17:39] VITALS: PULSE 67; BMI 34.3
[2024-09-23 18:53] LABS: ABSOLUTE IMMATURE GRANULOCYTES 0.03 x10^3/uL (0.0-0.031); BASOPHILS # 0.04 x10^3/uL (0.01-0.08); EOSINOPHIL % 4.4 % (0.7-5.8); HEMATOCRIT 39.4 % (34.1-44.9); HEMOGLOBIN 12.8 g/dL (11.2-15.7); MCHC 32.5 g/dl (32.2-35.5); MEAN CELL VOLUME 92.7 fl (79.4-94.8); MONOCYTE # 0.46 x10^3/uL (0.24-0.86); MONOCYTE % 6.8 % (4.7-12.5); PLATELET COUNT 239 x10^3/uL (182-369); RDW 13.8 % (12.4-16.6)
[2024-09-23 19:12] LABS: POTASSIUM 4.4 mmol/L (3.5-5.1)
[2024-09-23 19:15] LABS: ALBUMIN 3.7 g/dl (3.4-5.0); BLOOD UREA NITROGEN 21.2 mg/dL (7-18)
[2024-09-23 19:18] LABS: CREATININE 1.3 mg/dL (0.55-1.3)
[2024-09-23 19:19] LABS: BILIRUBIN,TOTAL 0.3 mg/dL (0.2-1); TOT PROT 7.6 g/dl (6.4-8.2)
[2024-09-23 23:10] VITALS: BP 118/65; RESP 16; TEMP 98.3
== END 2024-09-23 23:26 | disposition home or self-care (01) ==
LOC: JER 17:27
DX: R06.02 Shortness of breath (principal); B97.89 Other viral agents as the cause of diseases classified elsewhere
CPT/HCPCS: 0241U-QW; 36415; 71046-TC-FY; 71250-TC; 80053; 84484; 85025; 85379; 93005; 93010; 99283-25